=== PATIENT | female | born 1960 | race Caucasian/White ===

== ENCOUNTER 2018-09-02 17:54 | Emergency (ER) | payer OTHER ==
--- NOTE | 2018-09-02 18:18 | ERPHSYRPT ---
- History of Present Illness Time Seen by Provider: 09/02/18 18:15 Source: patient Exam Limitations: no limitations Patient Subjective Stated Complaint: slid and fell down hill and injured left ankle Triage Nursing Assessment: Pt states that she was on her property and there is a hill that gets real slick when it's wet and she slid down the heal injuring her left ankle, ankle is swollen on the lateral side, BP 150/77, rates pain 6/10 , good pulses, capillary refill normal, doesn't appear to be in any distress Physician History: 58 y/o diabetic, obese white female presents with left ankle pain and swelling after pt slipped and fell down a slick wet hill at her home. no head injury. no other complaints Occurred: just prior to arrival Reason for Fall: slipped Injuries/Pain Location: lower extremity (left ankle) Quality: aching, throbbing Severity of Pain-Max: moderate Severity of Pain-Current: moderate Modifying Factors: Improves With: movement, other (hurts to weight bear) Associated Symptoms (Fall): extremity injury, No back pain, No chest pain, No neck pain Allergies/Adverse Reactions: No Known Drug Allergies Allergy (Verified 09/02/18 18:14) Home Medications: Metformin HCl 500 mg [Glucophage 500 MG] 1,000 mg PO DAILY 03/14/12 [History] Glimepiride 2 mg [Amaryl 2 MG] 2 mg PO DAILY 09/02/18 [History] Losartan Potassium 50 mg [Cozaar 50 MG] 50 mg PO DAILY 09/02/18 [History] Oxybutynin Chloride [Oxybutynin Chloride ER] 10 mg PO DAILY 09/02/18 [History] Verapamil HCl 80 mg [Calan 80 mg] 80 mg PO DAILY 09/02/18 [History] Hx Tetanus, Diphtheria Vaccination/Date Given: (UNKNOWN) Hx Influenza Vaccination/Date Given: No Hx Pneumococcal Vaccination/Date Given: No - Review of Systems Constitutional: No Symptoms Eyes: No Symptoms Ears, Nose, & Throat: No Symptoms Respiratory: No Symptoms Cardiac: No Symptoms Abdominal/Gastrointestinal: No Symptoms Genitourinary Symptoms: No Symptoms Musculoskeletal: Fall, Injury (left ankle) Skin: No Symptoms Neurological: No Symptoms Psychological: No Symptoms Endocrine: No Symptoms Hematologic/Lymphatic: No Symptoms Immunological/Allergic: No Symptoms All Other Systems: Reviewed and Negative - Past Medical History Pertinent Past Medical History: Yes Neurological History: No Pertinent History ENT History: No Pertinent History Cardiac History: Hypertension Respiratory History: No Pertinent History Endocrine Medical History: Diabetes Type II Musculoskeletal History: No Pertinent History GI Medical History: No Pertinent History History: No Pertinent History Psycho-Social History: No Pertinent History Female Reproductive Disorders: No Pertinent History - Past Surgical History Past Surgical History: Yes Neuro Surgical History: No Pertinent History Cardiac: No Pertinent History Respiratory: No Pertinent History Gastrointestinal: No Pertinent History Genitourinary: No Pertinent History Musculoskeletal: No Pertinent History Female Surgical History: Section - Social History Smoking Status: Never smoker Exposure to second hand smoke: Yes Drug Use: none Patient Lives Alone: No - Female History Hx Now: No - Nursing Vital Signs Nursing Vital Signs: Initial Vital Signs Temperature 98.0 F 09/02/18 18:06 Pulse Rate 80 09/02/18 18:06 Blood Pressure 150/77 09/02/18 18:06 O2 Sat by Pulse Oximetry 98 09/02/18 18:06 Pain Scale Pain Intensity 4 - [place] Coma Score Best Eye Response ([place]): (4) open spontaneously Best Verbal Response ([place]): (5) oriented Best Motor Response ([place]): (6) obeys commands [place] Total: 15 - Physical Exam General Appearance: mild distress, alert, anxiety Head Injury: no evidence of injury, No Esquivel's Sign, No lacerations, No raccoon eyes Eye Exam: PERRL/EOMI, eyes nml inspection ENT Exam: airway nml, nml ext.inspection Neck Exam: supple, trachea midline, full range of motion, normal alignment Respiratory/Chest Exam: normal breath sounds, No chest tenderness, No respiratory distress Cardiovascular Exam: normal heart sounds Gastrointestinal Exam: soft, No tenderness, No guarding Rectal Exam: not done Back Exam: normal inspection, normal range of motion, No CVA tenderness, No vertebral tenderness Extremity Exam: joint swelling (left ankle; lateral) Neurologic Exam: alert, oriented x 3, cooperative, protection engineer II-XII nml as tested, normal mood/affect Skin Exam: normal color, warm, dry SpO2 Interpretation: normal SpO2: 98 O2 Delivery: Room Air Ordered Tests: Active Orders 24 hr Category Date Time Status ANKLE (3 VIEWS) Stat Exams 09/02/18 18:18 Taken Medication Summary Discontinued Medications Generic Name Dose Route Start Last Admin Trade Name Freq PRN Reason Stop Dose Admin Hydrocodone Bitart/Acetaminophen 1 tab 09/02/18 18:23 09/02/18 18:34 [place] 5/325 Mg PO 09/02/18 18:24 1 tab STAT ONE Administration Hydrocodone Bitart/Acetaminophen Confirm 09/02/18 18:34 [place] 5/325 Mg Administered 09/02/18 18:35 Dose 1 tab .ROUTE .STK-MED ONE Ibuprofen 600 mg 09/02/18 18:23 09/02/18 18:34 Motrin 600 Mg PO 09/02/18 18:24 600 mg STAT ONE Administration Ibuprofen Confirm 09/02/18 18:33 Motrin 600 Mg Administered 09/02/18 18:34 Dose 600 mg .ROUTE .STK-MED ONE - Progress Progress: improved, pain not gone completely, re-examined Progress Note: 09/02/18 19:27 xray left ankle-no acute fx. Counseled pt/family regarding: diagnosis, need for follow-up, rad results - Departure Time of Disposition: 19:28 Departure Disposition: Home Clinical Impression: Ankle sprain Condition: Stable Critical Care Time: No Referrals: ROSANA JOSEPH MD [Primary Care Provider] - Additional Instructions: add ibuprofen for pain. wear thong wrap for comfort. follow up with primary doctor for persistent symptoms Prescriptions: Hydrocodone/APAP 5-325 Tab^^^ [[place] 5-325 Tablet^^^] 1 tab PO Q8H PRN PRN #6 tablet MDD 6 PRN Reason: Pain
[2018-09-02] MEDS ORDERED: MOTRIN 600 MG PO ONE (18:23)
[2018-09-02] MEDS ORDERED: NORCO 5/325 MG PO ONE (18:23)
[2018-09-02] MEDS ORDERED: MOTRIN 600 MG ONE (18:33)
[2018-09-02] MEDS ORDERED: NORCO 5/325 MG ONE (18:34)
[2018-09-02 20:16] VITALS: BP 129/55; PULSE 72; O2SAT 96
--- NOTE | 2018-09-03 08:45 | XRAY ---
Indication: Pain, swelling, and bruising following fall. Comparison: None 3 views of the left ankle demonstrates anterior lateral soft tissue swelling and small heel spurs. No other bony, articular, or soft tissue abnormalities.
== END 2018-09-02 20:21 | disposition home or self-care (01) ==
LOC: ED 17:54
DX: S93.402A Sprain of unspecified ligament of left ankle, initial encounter (principal); M25.572 Pain in left ankle and joints of left foot; W01.0XXA Fall on same level from slipping, tripping and stumbling without subsequent striking against object, initial encounter; Y92.828 Other wilderness area as the place of occurrence of the external cause; E11.9 Type 2 diabetes mellitus without complications; Z79.4 Long term (current) use of insulin; Z79.899 Other long term (current) drug therapy
CPT/HCPCS: 73610; 99284; A9270-GY

== ENCOUNTER 2020-06-06 11:45 | Emergency (ER) | payer OTHER ==
[2012-03-14 11:43] VITALS: BP 99/58
[2020-06-06] MEDS ORDERED: Sodium Chloride 0.9% 1000 ML 1,000 ML IV STA ×2 (12:37→14:33)
[2020-06-06] MEDS ORDERED: Zofran 4 MG/2 ML VIAL IV STA (12:37)
[2020-06-06] MEDS ORDERED: Sodium Chloride 0.9% 1000 ML 1,000 ML ONE ×2 (12:47→14:44)
[2020-06-06] MEDS ORDERED: Zofran 4 MG/2 ML VIAL ONE (12:48)
[2020-06-06 12:54] LABS: Absolute Neutrophil Ct (ANC) 5.99 (1.4-6.9); BASOPHIL % 0.2 % (0.0-0.4); Basophil (Absolute #) 0.02 (0-0.4); Eosinophil % 0.1 % (0.00-5.0); Eosinophil (Absolute #) 0.01 (0-0.5); Hematocrit 45.4 % (35-47); Lymphocyte (Absolute #) 2.86 (1.0-4.6); Lymphocytes % 29.2 % (24.0-44.0); Mean Cell Volume 91.7 fl (78-100); Mean Corpuscular Hemoglobin 30.3 pg (26-32); Mean Platelet Volume 11.6 fl (7.5-11.0); Monocyte (Absolute #) 0.93 (0.0-1.3); Monocytes % 9.5 % (0.0-12.0); Platelet Count 176 K/mm3 (150-450); Red Blood Count 4.95 M/mm3 (4.1-5.4); Red Cell Distribution Width 13.4 % (11.5-14.0); White Blood Count 9.8 K/mm3 (4.0-10.5)
[2020-06-06 13:01] VITALS: O2SAT 96
[2020-06-06 13:03] LABS: ALBUMIN 4.5 g/dL (3.5-5.0); ALKALINE PHOSPHATASE 86 U/L (38-126); ANION GAP 16.7 MEQ/L (5-15); BLOOD UREA NITROGEN 28 mg/dL (7-17); CHLORIDE 97 mmol/L (98-107); Calcium 9.2 mg/dL (8.4-10.2); Carbon Dioxide 24 mmol/L (22-30); Creatinine 1 0.92 mg/dL (0.52-1.04); EST GLOMERULAR FILTRATION RATE > 60.0 ML/MIN; Glucose 274 mg/dL (74-106); NT PRO BNP 31.3 pg/mL (0-900); Potassium 3.2 mmol/L (3.5-5.1); SGOT/AST 204 U/L (14-36); SGPT/ALT 237 U/L (0-35); SODIUM 134 mmol/L (137-145); Total Protein 8.1 g/dL (6.3-8.2)
--- NOTE | 2020-06-06 13:19 | ERPHSYRPT ---
- History of Present Illness Time Seen by Provider: 06/06/20 12:00 Source: patient Exam Limitations: no limitations Patient Subjective Stated Complaint: Fall Triage Nursing Assessment: Patient brought back to ED via w/c and transfered to bed with assist of 2. Patient A+O X3. Patient's skin pink, warm and dry. Patient complains of "passing out". Patient's reports patient fell hitting her head twice and having to be assisted off the floor. Patient currently denies pain or discomfort. Patient was dx with COVID 19 on 06/04/2020 and has been very weak. Physician History: This is a diabetic 60-year-old morbidly obese white female with a history of hypertension who was tested for Covid this past Thursday with a rapid test at a residential facility and it was positive. She then had another drawn within the last day or 2 and she is waiting results of that COVID-19 test. Patient was given a prescription for Z-Jose and Medrol dose pack yesterday. This morning she had 2 syncopal episodes. Patient has not been eating or drinking well the last for 5 days. When she fell she stated she did hit her head. She is just felt weak primarily. She has not having chest pain or shortness of breath, however, she did tell the nurse that she was having both of these symptoms. She has not been coughing. She has no abdominal pain. Timing/Duration: today Severity: moderate Associated Symptoms: loss of appetite, syncope, weakness, No shortness of breath, No chest pain Allergies/Adverse Reactions: No Known Drug Allergies Allergy (Verified 06/06/20 11:46) Home Medications: Metformin HCl 500 mg [Glucophage 500 MG] 1,000 mg PO DAILY 03/14/12 [History] Glimepiride 2 mg [Amaryl 2 MG] 2 mg PO DAILY 09/02/18 [History] Losartan Potassium 50 mg [Cozaar 50 MG] 50 mg PO DAILY 09/02/18 [History] Oxybutynin Chloride [Oxybutynin Chloride ER] 10 mg PO DAILY 09/02/18 [History] Verapamil HCl 80 mg [Calan 80 mg] 80 mg PO DAILY 09/02/18 [History] Hx Tetanus, Diphtheria Vaccination/Date Given: (UNKNOWN) Hx Influenza Vaccination/Date Given: Yes Hx Pneumococcal Vaccination/Date Given: No Immunizations Up to Date: Yes Travel Risk - International Travel Have you traveled outside of the country in past 3 weeks: No - Coronavirus Screening Are you exhibiting any of the following symptoms?: Yes Symptoms: Fever, Cough: New Onset, Shortness of Breath, Vomiting/Diarrhea, Loss of Taste or Smell, Headaches/Body Aches/Fatigue Close contact with a COVID-19 positive Pt in past 14-21 Days: Yes - Review of Systems Constitutional: Weakness Eyes: No Symptoms Ears, Nose, & Throat: No Symptoms Respiratory: Cough, Dyspnea Cardiac: No Symptoms, No Chest Pain Abdominal/Gastrointestinal: No Symptoms, Appetite Changes Genitourinary Symptoms: No Symptoms Musculoskeletal: No Symptoms Skin: No Symptoms Neurological: No Symptoms Psychological: No Symptoms Endocrine: No Symptoms Hematologic/Lymphatic: No Symptoms Immunological/Allergic: No Symptoms All Other Systems: Reviewed and Negative - Past Medical History Pertinent Past Medical History: Yes Neurological History: No Pertinent History ENT History: No Pertinent History Cardiac History: Hypertension Respiratory History: No Pertinent History Endocrine Medical History: Diabetes Type II Musculoskeletal History: No Pertinent History GI Medical History: No Pertinent History History: No Pertinent History Psycho-Social History: No Pertinent History Female Reproductive Disorders: No Pertinent History - Past Surgical History Past Surgical History: Yes Neuro Surgical History: No Pertinent History Cardiac: No Pertinent History Respiratory: No Pertinent History Gastrointestinal: No Pertinent History Genitourinary: No Pertinent History Musculoskeletal: No Pertinent History Female Surgical History: Section - Social History Smoking Status: Never smoker Exposure to second hand smoke: Yes Drug Use: none Patient Lives Alone: No - Female History Hx Last Menstrual Period: menopausal Hx Now: No - Nursing Vital Signs Nursing Vital Signs: Initial Vital Signs Pulse Rate 85 06/06/20 11:46 Respiratory Rate 18 06/06/20 11:46 O2 Sat by Pulse Oximetry 94 L 06/06/20 11:46 Pain Scale Pain Intensity 0 - Physical Exam General Appearance: no apparent distress, alert, anxiety, obese Eye Exam: PERRL/EOMI, eyes nml inspection Ears, Nose, Throat Exam: normal ENT inspection, moist mucous membranes Neck Exam: normal inspection, non-tender, supple, full range of motion Respiratory Exam: normal breath sounds, lungs clear, airway intact, No chest tenderness, No respiratory distress Cardiovascular Exam: regular rate/rhythm, normal heart sounds, normal peripheral pulses Gastrointestinal/Abdomen Exam: soft, normal bowel sounds, No tenderness, No guarding Pelvic Exam: not done Rectal Exam: not done Back Exam: normal inspection, normal range of motion, No CVA tenderness, No vertebral tenderness Extremity Exam: normal inspection, normal range of motion, pelvis stable Neurologic Exam: alert, oriented x 3, cooperative, travel cota II-XII nml as tested Skin Exam: normal color, warm, dry Lymphatic Exam: No adenopathy SpO2 Interpretation: normal SpO2: 96 O2 Delivery: Room Air - Course Nursing assessment & vital signs reviewed: Yes EKG Interpreted by Me: RATE (87), Sinus Rhythm, NORMAL AXIS, NORMAL INTERVALS, NORMAL QRS, NORMAL ST-T, Other (No acute ischemic changes. There is no comparison EKG available.) Ordered Tests: Active Orders 24 hr Category Date Time Status Assembler Piano STAT Care 06/06/20 12:38 Active IV Insertion STAT Care 06/06/20 12:37 Active Pulse Oximetry (ED) STAT Care 06/06/20 12:37 Active HEAD WITHOUT CONTRAST [CT] Stat Exams 06/06/20 12:39 Completed CBC W DIFF Stat Lab 06/06/20 12:37 Completed CMP Stat Lab 06/06/20 12:37 Completed CULTURE,URINE Stat Lab 06/06/20 13:00 Received INFLUENZA A+B HOLLIE Stat Lab 06/06/20 13:00 Completed Lactic Acid Stat Lab 06/06/20 12:37 Completed [place] Screen Stat Lab 06/06/20 Completed NT PRO BNP Stat Lab 06/06/20 12:37 Completed TROPONIN Q3H Lab 06/06/20 12:45 Completed TROPONIN Q3H Lab 06/06/20 15:45 Ordered TROPONIN Q3H Lab 06/06/20 18:45 Ordered TROPONIN Q3H Lab 06/06/20 21:45 Ordered TROPONIN Q3H Lab 06/07/20 00:45 Ordered UA W/RFX UR CULTURE Stat Lab 06/06/20 13:00 Completed Medication Summary Generic Name Dose Route Start Last Admin Trade Name Freq PRN Reason Stop Dose Admin Sodium Chloride 1,000 mls @ 999 mls/hr 06/06/20 14:33 Sodium Chloride 0.9% 1000 Ml IV 06/06/20 15:33 .Q1H1M STA Discontinued Medications Generic Name Dose Route Start Last Admin Trade Name Freq PRN Reason Stop Dose Admin Sodium Chloride 1,000 mls @ 999 mls/hr 06/06/20 12:37 06/06/20 13:59 Sodium Chloride 0.9% 1000 Ml IV 06/06/20 13:37 Infused .Q1H1M STA Infusion Sodium Chloride Confirm 06/06/20 12:47 Sodium Chloride 0.9% 1000 Ml Administered 06/06/20 12:48 Dose 1,000 mls @ ud .ROUTE .STK-MED ONE Ondansetron HCl 4 mg 06/06/20 12:37 06/06/20 12:51 Zofran 4 Mg/2 Ml Vial IV 06/06/20 12:38 4 mg STAT STA Administration Ondansetron HCl Confirm 06/06/20 12:48 Zofran 4 Mg/2 Ml Vial Administered 06/06/20 12:49 Dose 4 mg .ROUTE .STK-MED ONE Potassium Chloride 10 meq 06/06/20 13:21 06/06/20 13:26 Klor Con 10 Meq PO 06/06/20 13:22 10 meq STAT ONE Administration Potassium Chloride Confirm 06/06/20 13:25 Klor Con 10 Meq Administered 06/06/20 13:26 Dose 10 meq PO .STK-MED ONE Lab/Rad Data: Laboratory Result Diagrams 06/06/20 12:37 06/06/20 12:37 Laboratory Results 06/06/20 06/06/20 06/06/20 Range/Units Unknown 13:00 13:00 WBC (4.0-10.5) K/mm3 RBC (4.1-5.4) M/mm3 Hgb (12.0-16.0) gm/dl Hct (35-47) % MCV (78-100) fl MCH (26-32) pg MCHC (32-36) g/dl RDW (11.5-14.0) % Plt Count (150-450) K/mm3 MPV (7.5-11.0) fl Gran % (36.0-66.0) % Eos # (Auto) (0-0.5) Absolute Lymphs (auto) (1.0-4.6) Absolute Monos (auto) (0.0-1.3) Lymphocytes % (24.0-44.0) % Monocytes % (0.0-12.0) % Eosinophils % (0.00-5.0) % Basophils % (0.0-0.4) % Absolute Granulocytes (1.4-6.9) Basophils # (0-0.4) Sodium (137-145) mmol/L Potassium (3.5-5.1) mmol/L Chloride (98-107) mmol/L Carbon Dioxide (22-30) mmol/L Anion Gap (5-15) MEQ/L BUN (7-17) mg/dL Creatinine (0.52-1.04) mg/dL Estimated GFR ML/MIN Glucose (74-106) mg/dL Lactic Acid (0.4-2.0) Calcium (8.4-10.2) mg/dL Total Bilirubin (0.2-1.3) mg/dL AST (14-36) U/L ALT (0-35) U/L Alkaline Phosphatase (38-126) U/L Troponin I (0.000-0.034) ng/mL NT-Pro-B Natriuret Pep (0-900) pg/mL Serum Total Protein (6.3-8.2) g/dL Albumin (3.5-5.0) g/dL Urine Color CHRISTIANO (YELLOW) Urine Appearance CLOUDY (CLEAR) Urine pH 5.0 (5-6) Ur Specific [place] 1.024 (1.005-1.025) Urine Protein 100 (Negative) Urine Ketones NEGATIVE (NEGATIVE) Urine Blood NEGATIVE (0-5) Lazarus/ul Urine Nitrite NEGATIVE (NEGATIVE) Urine Bilirubin NEGATIVE (NEGATIVE) Urine Urobilinogen 2 (0-1) mg/dL Ur Leukocyte Esterase NEGATIVE (NEGATIVE) Urine WBC (Auto) 3-5 (0-5) /HPF Urine RBC (Auto) 0-2 (0-2) /HPF U Hyaline Cast (Auto) 6-10 (0-2) /LPF U Epithel Cells (Auto) RARE (FEW) /HPF Urine Bacteria (Auto) RARE (NEGATIVE) /HPF Urine Mucus (Auto) MODERATE (NEGATIVE) /HPF Urine Culture Reflexed YES (NO) Urine Glucose NEGATIVE (NEGATIVE) mg/dL Monoscreen NEGATIVE (Negative) Influenza Type A Ag NEGATIVE (NEGATIVE) Influenza Type B Ag NEGATIVE (NEGATIVE) Group A Strep Antibody (NEGATIVE) 12/09/20 12/09/20 12/09/20 Range/Units 12:45 12:38 12:37 WBC (4.0-10.5) K/mm3 RBC (4.1-5.4) M/mm3 Hgb (12.0-16.0) gm/dl Hct (35-47) % MCV (78-100) fl MCH (26-32) pg MCHC (32-36) g/dl RDW (11.5-14.0) % Plt Count (150-450) K/mm3 MPV (7.5-11.0) fl Gran % (36.0-66.0) % Eos # (Auto) (0-0.5) Absolute Lymphs (auto) (1.0-4.6) Absolute Monos (auto) (0.0-1.3) Lymphocytes % (24.0-44.0) % Monocytes % (0.0-12.0) % Eosinophils % (0.00-5.0) % Basophils % (0.0-0.4) % Absolute Granulocytes (1.4-6.9) Basophils # (0-0.4) Sodium 134 L (137-145) mmol/L Potassium 3.2 L (3.5-5.1) mmol/L Chloride 97 L (98-107) mmol/L Carbon Dioxide 24 (22-30) mmol/L Anion Gap 16.7 H (5-15) MEQ/L BUN 28 H (7-17) mg/dL Creatinine 0.92 (0.52-1.04) mg/dL Estimated GFR > 60.0 ML/MIN Glucose 274 H (74-106) mg/dL Lactic Acid (0.4-2.0) Calcium 9.2 (8.4-10.2) mg/dL Total Bilirubin 0.70 (0.2-1.3) mg/dL AST 204 H (14-36) U/L ALT 237 H (0-35) U/L Alkaline Phosphatase 86 (38-126) U/L Troponin I < 0.012 (0.000-0.034) ng/mL NT-Pro-B Natriuret Pep 31.3 (0-900) pg/mL Serum Total Protein 8.1 (6.3-8.2) g/dL Albumin 4.5 (3.5-5.0) g/dL Urine Color (YELLOW) Urine Appearance (CLEAR) Urine pH (5-6) Ur Specific [place] (1.005-1.025) Urine Protein (Negative) Urine Ketones (NEGATIVE) Urine Blood (0-5) Lazarus/ul Urine Nitrite (NEGATIVE) Urine Bilirubin (NEGATIVE) Urine Urobilinogen (0-1) mg/dL Ur Leukocyte Esterase (NEGATIVE) Urine WBC (Auto) (0-5) /HPF Urine RBC (Auto) (0-2) /HPF U Hyaline Cast (Auto) (0-2) /LPF U Epithel Cells (Auto) (FEW) /HPF Urine Bacteria (Auto) (NEGATIVE) /HPF Urine Mucus (Auto) (NEGATIVE) /HPF Urine Culture Reflexed (NO) Urine Glucose (NEGATIVE) mg/dL Monoscreen (Negative) Influenza Type A Ag (NEGATIVE) Influenza Type B Ag (NEGATIVE) Group A Strep Antibody NOT DETECTED (NEGATIVE) 06/06/20 06/06/20 Range/Units 12:37 12:37 WBC 9.8 (4.0-10.5) K/mm3 RBC 4.95 (4.1-5.4) M/mm3 Hgb 15.0 (12.0-16.0) gm/dl Hct 45.4 (35-47) % MCV 91.7 (78-100) fl MCH 30.3 (26-32) pg MCHC 33.0 (32-36) g/dl RDW 13.4 (11.5-14.0) % Plt Count 176 (150-450) K/mm3 MPV 11.6 H (7.5-11.0) fl Gran % 61.0 (36.0-66.0) % Eos # (Auto) 0.01 (0-0.5) Absolute Lymphs (auto) 2.86 (1.0-4.6) Absolute Monos (auto) 0.93 (0.0-1.3) Lymphocytes % 29.2 (24.0-44.0) % Monocytes % 9.5 (0.0-12.0) % Eosinophils % 0.1 (0.00-5.0) % Basophils % 0.2 (0.0-0.4) % Absolute Granulocytes 5.99 (1.4-6.9) Basophils # 0.02 (0-0.4) Sodium (137-145) mmol/L Potassium (3.5-5.1) mmol/L Chloride (98-107) mmol/L Carbon Dioxide (22-30) mmol/L Anion Gap (5-15) MEQ/L BUN (7-17) mg/dL Creatinine (0.52-1.04) mg/dL Estimated GFR ML/MIN Glucose (74-106) mg/dL Lactic Acid 1.9 (0.4-2.0) Calcium (8.4-10.2) mg/dL Total Bilirubin (0.2-1.3) mg/dL AST (14-36) U/L ALT (0-35) U/L Alkaline Phosphatase (38-126) U/L Troponin I (0.000-0.034) ng/mL NT-Pro-B Natriuret Pep (0-900) pg/mL Serum Total Protein (6.3-8.2) g/dL Albumin (3.5-5.0) g/dL Urine Color (YELLOW) Urine Appearance (CLEAR) Urine pH (5-6) Ur Specific [place] (1.005-1.025) Urine Protein (Negative) Urine Ketones (NEGATIVE) Urine Blood (0-5) Lazarus/ul Urine Nitrite (NEGATIVE) Urine Bilirubin (NEGATIVE) Urine Urobilinogen (0-1) mg/dL Ur Leukocyte Esterase (NEGATIVE) Urine WBC (Auto) (0-5) /HPF Urine RBC (Auto) (0-2) /HPF U Hyaline Cast (Auto) (0-2) /LPF U Epithel Cells (Auto) (FEW) /HPF Urine Bacteria (Auto) (NEGATIVE) /HPF Urine Mucus (Auto) (NEGATIVE) /HPF Urine Culture Reflexed (NO) Urine Glucose (NEGATIVE) mg/dL Monoscreen (Negative) Influenza Type A Ag (NEGATIVE) Influenza Type B Ag (NEGATIVE) Group A Strep Antibody (NEGATIVE) - Progress Progress: improved, re-examined Progress Note: 06/06/20 14:43 Patient states that she is feeling much better after 1 L of fluid. CAT scan of the head without contrast reveals no acute intracranial abnormality Counseled pt/family regarding: lab results, diagnosis, need for follow-up, rad results - Departure Departure Disposition: Home Clinical Impression: COVID-19 virus infection, Syncopal episodes Condition: Stable Critical Care Time: No Referrals: OPAL,ROSANA, MD [Primary Care Provider] - Additional Instructions: Drink plenty of fluids. Take your medication as prescribed. Prescriptions: Ondansetron ODT 4 MG [Zofran Odt 4 mg] 4 mg PO Q6H PRN PRN #10 tab.rapdis PRN Reason: Vomiting
[2020-06-06] MEDS ORDERED: Klor Con 10 MEQ PO ONE ×2 (13:21→13:25)
[2020-06-06 13:44] LABS: Appearance CLOUDY (CLEAR); Bacteria RARE /HPF (NEGATIVE); Bilirubin NEGATIVE (NEGATIVE); Blood NEGATIVE Ery/ul (0-5); Epithelial Cells RARE /HPF (FEW); Glucose NEGATIVE (NEGATIVE); Ketones NEGATIVE (NEGATIVE); Leukocyte Esterase NEGATIVE (NEGATIVE); Mucus MODERATE /HPF (NEGATIVE); Nitrite NEGATIVE (NEGATIVE); Protein,Urine Dip 100 (Negative); RBC 0-2 /HPF (0-2); Specific Gravity 1.024 (1.005-1.025); Urobilinogen 2 mg/dL (0-1)
--- NOTE | 2020-06-06 13:51 | XRAY ---
Indication: Syncope. Covid 19 exposure. Multiple contiguous axial images obtained through the head without contrast. Comparison: None Normal appearing brain parenchyma, ventricles, and bony calvarium. Visualized paranasal sinuses and mastoid air cells are clear. Impression: Normal CT head without contrast exam.
[2020-06-06 14:14] LABS: INFLUENZA A NEGATIVE (NEGATIVE); INFLUENZA B NEGATIVE (NEGATIVE)
[2020-06-06 15:20] VITALS: BP 125/64; PULSE 85
== END 2020-06-06 16:00 | disposition home or self-care (01) ==
LOC: ED 11:45
DX: U07.1 COVID-19 (principal); R55 Syncope and collapse; I10 Essential (primary) hypertension; Z79.899 Other long term (current) drug therapy; E11.9 Type 2 diabetes mellitus without complications
CPT/HCPCS: 36000; 36415; 70450; 80053; 81001; 83605; 83880; 84484; 85025; 86308; 87086; 87400; 87651; 93041; 94760; 96360; 96361; 96374; 99284; J2405; A9270-GY

== ENCOUNTER 2020-06-12 05:48 | Inpatient (IN) | payer OTHER ==
[2020-06-12] MEDS ORDERED: DECADRON 10MG INJ. IV ONE (06:39)
--- NOTE | 2020-06-12 06:43 | ERPHSYRPT ---
- History of Present Illness Source: patient Exam Limitations: no limitations Patient Subjective Stated Complaint: pt state "I haven't felt good for a week. I fell going to the bathroom this morning. I feel clammy and my blood pressure is low." Triage Nursing Assessment: pt came into the er via ambulance; pt is axo x3; c/o N/V/D for past 8 days; pt is covid positive; pt states fall this morning on way to the bathroom; pt states that she vomited 3 times in the last 24 hours; pt states that she has had 4 diarrhea episodes in the past 24 hours; pt states that medrol dose pack and stopped it due to high blood sugar; EMT states blood sugar of 428; pt vomited brown thin bile with undigested food; bowel sounds are hypoactive in all quads; abd is obese, soft, non tender with palpation; EMT gave 4 of zofran in route to hospital; mucus membranes pink and dry; pupils 2 mm and PERRL; clear lung sounds in all lobes; hypoxia; O2 84% room air; pt on 5L nasal canula 97%; pt c/o dizziness and weakness; pedal and radial pulses strong; hypothermic oral tempature of 96.1 Timing/Duration: day(s) (8 days ago) Severity: moderate Modifying Factors: Improves With: nothing Associated Symptoms: nausea, vomiting, shortness of breath, diaphoresis, loss of appetite Hx Tetanus, Diphtheria Vaccination/Date Given: Yes Hx Influenza Vaccination/Date Given: Yes Hx Pneumococcal Vaccination/Date Given: No <IRIS WALDRON - Last Filed: 06/12/20 07:04> <MERRY ZAVALA - Last Filed: 06/12/20 11:59> - History of Present Illness Time Seen by Provider: 06/12/20 06:20 Physician History: Patient is a 60-year-old female presents to our ED via EMS for evaluation of generalized weakness and feeling unwell. Patient states she was diagnosed with Covid on 04 June. Since then she has been experiencing nausea vomiting and diarrhea. Over the past 24 hours patient had experienced 3 bouts of emesis and 4 episodes of diarrhea. Patient sees Dr. Louise who started her on a Medrol Dosepak to treat her symptoms however patient discontinued the Medrol Dosepak due to hyperglycemia. Patient states she feels extremely weak. No injuries from the fall. Symptoms are progressive. Symptoms are moderate in intensity. No specific worsening or improving factors. Patient voices no other complaints concerns at this time. Patient currently on 6 L O2 nasal cannula. She normally does not require oxygen at home. (IRIS WALDRON) Allergies/Adverse Reactions: No Known Drug Allergies Allergy (Verified 06/12/20 05:56) Home Medications: Metformin HCl 500 mg [Glucophage 500 MG] 1,000 mg PO DAILY 03/14/12 [History] Glimepiride 2 mg [Amaryl 2 MG] 2 mg PO DAILY 09/02/18 [History] Losartan Potassium 50 mg [Cozaar 50 MG] 50 mg PO DAILY 09/02/18 [History] Oxybutynin Chloride [Oxybutynin Chloride ER] 10 mg PO DAILY 09/02/18 [History] Verapamil HCl 80 mg [Calan 80 mg] 80 mg PO DAILY 09/02/18 [History] Travel Risk - International Travel Have you traveled outside of the country in past 3 weeks: No - Coronavirus Screening Symptoms: Fever, Cough: New Onset, Shortness of Breath, Vomiting/Diarrhea, Loss of Taste or Smell, Headaches/Body Aches/Fatigue Close contact with a COVID-19 positive Pt in past 14-21 Days: Yes <IRIS WALDRON - Last Filed: 06/12/20 07:04> - Review of Systems All Other Systems: Unable due to condition <IRIS WALDRON - Last Filed: 06/12/20 07:04> - Past Medical History Pertinent Past Medical History: Yes Neurological History: No Pertinent History ENT History: No Pertinent History Cardiac History: Hypertension Respiratory History: No Pertinent History Endocrine Medical History: Diabetes Type II Musculoskeletal History: No Pertinent History GI Medical History: No Pertinent History History: No Pertinent History Psycho-Social History: No Pertinent History Female Reproductive Disorders: No Pertinent History - Past Surgical History Past Surgical History: Yes Neuro Surgical History: No Pertinent History Cardiac: No Pertinent History Respiratory: No Pertinent History Gastrointestinal: No Pertinent History Genitourinary: No Pertinent History Musculoskeletal: Orthopedic Surgery Female Surgical History: Section Other Surgical History: 3- , back surgery - Social History Smoking Status: Never smoker Exposure to second hand smoke: Yes Drug Use: none Patient Lives Alone: No <IRIS WALDRON Filed: 06/12/20 07:04> - Physical Exam General Appearance: mild distress, alert Eye Exam: PERRL/EOMI, eyes nml inspection Ears, Nose, Throat Exam: normal ENT inspection, dry mucous membranes Neck Exam: normal inspection, non-tender, supple, full range of motion Respiratory Exam: lungs clear, diminished breath sounds, No respiratory distress, No accessory muscle use Cardiovascular Exam: regular rate/rhythm, normal heart sounds, normal peripheral pulses Gastrointestinal/Abdomen Exam: soft, normal bowel sounds, No tenderness, No mass Back Exam: normal inspection, normal range of motion, No CVA tenderness, No vertebral tenderness Extremity Exam: normal inspection, normal range of motion, pelvis stable Neurologic Exam: alert, oriented x 3, cooperative, normal mood/affect, sensation nml, No motor deficits Skin Exam: normal color, warm, dry, No rash Lymphatic Exam: No adenopathy SpO2 Interpretation: normal SpO2: 93 O2 Delivery: Nasal Cannula <IRIS WALDRON Filed: 06/12/20 07:04> - Nursing Vital Signs Nursing Vital Signs: Initial Vital Signs Temperature 96.1 F 06/12/20 06:00 Pulse Rate 85 06/12/20 06:00 Respiratory Rate 16 06/12/20 06:00 Blood Pressure 102/52 06/12/20 06:00 O2 Sat by Pulse Oximetry 93 L 06/12/20 06:00 Pain Scale Pain Intensity 0 - Course Nursing assessment & vital signs reviewed: Yes EKG Interpreted by Me: RATE (84), Sinus Rhythm, NORMAL AXIS, NORMAL INTERVALS <IRIS WALDRON Filed: 06/12/20 07:04> Ordered Tests: Active Orders 24 hr Category Date Time Status Radio Installer STAT Care 06/12/20 06:34 Active EKG-ER Only STAT Care 06/12/20 06:32 Active IV Insertion STAT Care 06/12/20 06:32 Active Pulse Oximetry (ED) STAT Care 06/12/20 06:32 Active CHEST 1 VIEW (PORTABLE) Stat Exams 06/12/20 06:34 Completed ARTERIAL BLOOD GASES Stat Lab 06/12/20 06:55 Completed BLOOD CULTURE Stat Lab 06/12/20 06:50 Received CBC W DIFF Stat Lab 06/12/20 06:40 Completed CMP Stat Lab 06/12/20 06:40 Completed CULTURE,URINE Stat Lab 06/12/20 07:45 Received D-DIMER QUANTITATIVE Stat Lab 06/12/20 06:40 Completed INFLUENZA A+B HOLLIE Stat Lab 06/12/20 07:00 Completed Lactic Acid Stat Lab 06/12/20 06:55 Completed Lactic Acid Stat Lab 06/12/20 09:01 Completed MAGNESIUM Stat Lab 06/12/20 06:40 Completed Manual Differential NC Stat Lab 06/12/20 06:40 Completed TROPONIN Q3H Lab 06/12/20 06:40 Completed TROPONIN Q3H Lab 06/12/20 10:00 Completed TROPONIN Q3H Lab 06/12/20 12:45 Ordered TROPONIN Q3H Lab 06/12/20 15:45 Ordered TROPONIN Q3H Lab 06/12/20 18:45 Ordered Medication Summary Generic Name Dose Route Start Last Admin Trade Name Freq PRN Reason Stop Dose Admin Dexamethasone Sodium Phosphate 8 mg 06/12/20 06:39 06/12/20 06:45 Decadron 10mg Inj. IV 06/12/20 06:40 8 mg STAT ONE Administration Discontinued Medications Generic Name Dose Route Start Last Admin Trade Name Freq PRN Reason Stop Dose Admin Potassium Chloride 20 meq in 100 mls @ 50 mls/hr 06/12/20 07:18 06/12/20 07:23 Potassium Chloride 20 Meq In Water 100ml IV 06/12/20 09:17 50 mls/hr STAT ONE Administration Sodium Chloride 1,000 mls @ 999 mls/hr 06/12/20 07:21 06/12/20 09:24 Sodium Chloride 0.9% 1000 Ml IV 06/12/20 08:21 Infused .Q1H1M STA Infusion Sodium Chloride Confirm 06/12/20 07:21 Sodium Chloride 0.9% 1000 Ml Administered 06/12/20 07:22 Dose 1,000 mls @ ud .ROUTE .STK-MED ONE Potassium Chloride Confirm 06/12/20 07:21 Potassium Chloride 20 Meq In Water 100ml Administered 06/12/20 07:22 Dose 100 mls @ ud IV .STK-MED ONE Potassium Chloride Confirm 06/12/20 09:26 Potassium Chloride 20 Meq In Water 100ml Administered 06/12/20 09:27 Dose 100 mls @ ud IV .STK-MED ONE Potassium Chloride 20 meq in 100 mls @ 50 mls/hr 06/12/20 09:30 06/12/20 09:31 Potassium Chloride 20 Meq In Water 100ml IV 06/12/20 11:29 50 mls/hr STAT ONE Administration Lab/Rad Data: Laboratory Result Diagrams 06/12/20 06:40 06/12/20 06:40 Laboratory Results 06/12/20 06/12/20 06/12/20 Range/Units 10:00 09:01 07:45 WBC (4.0-10.5) K/mm3 RBC (4.1-5.4) M/mm3 Hgb (12.0-16.0) gm/dl Hct (35-47) % MCV (78-100) fl MCH (26-32) pg MCHC (32-36) g/dl RDW (11.5-14.0) % Plt Count (150-450) K/mm3 MPV (7.5-11.0) fl Segmented Neutrophils (36.0-66.0) % Band Neutrophils (0.0-2.0) % Lymphocytes (Manual) (24-44) % Monocytes (Manual) (0.0-12.0) % Platelet Estimate (NORMAL) RBC Morphology D-Dimer (215-500) ng/mL Puncture Site pCO2 (35-45) mmHg pO2 (75-100) mmHg Base Excess (-2.0-2.0) O2 Saturation (94-100) g/dF ABG pH (7.35-7.45) ABG HCO3 (22-28) ABG O2 Sat (Measured) (95-100) % Jaspreet Test A-a Gradient a/A Ratio Hemoglobin Carboxyhemoglobin (0.0-6.9) % THgb Methemoglobin (1.4-1.5) % Temperature C POC O2 Flow Rate % Sodium (137-145) mmol/L Potassium (3.5-5.1) mmol/L Chloride (98-107) mmol/L Carbon Dioxide (22-30) mmol/L Anion Gap (5-15) MEQ/L BUN (7-17) mg/dL Creatinine (0.52-1.04) mg/dL Estimated GFR ML/MIN Glucose (74-106) mg/dL Lactic Acid 2.5 H (0.4-2.0) Calcium (8.4-10.2) mg/dL Magnesium (1.6-2.3) mg/dL Total Bilirubin (0.2-1.3) mg/dL AST (14-36) U/L ALT (0-35) U/L Alkaline Phosphatase (38-126) U/L Troponin I < 0.012 (0.000-0.034) ng/mL Serum Total Protein (6.3-8.2) g/dL Albumin (3.5-5.0) g/dL Urinalys Dipstick Clnc MAIN LAB Urine Color YELLOW (YELLOW) Urine Appearance CLOUDY (CLEAR) Urine pH 5.0 (5-6) Ur Specific [place] >=1.030 (1.005-1.025) POC Urine Protein Conf NEGATIVE (Negative) Urine Ketones NEGATIVE (NEGATIVE) Urine Nitrite NEGATIVE (NEGATIVE) Urine Bilirubin SMALL (NEGATIVE) Urine Urobilinogen 1 (0-1) mg/dL Urine Leukocytes 1+ (NEGATIVE) Urine WBC (Auto) 51-100 (0-5) /HPF Urine RBC (Auto) 6-10 (0-2) /HPF U Hyaline Cast (Auto) 3-5 (0-2) /LPF U Epithel Cells (Auto) RARE (FEW) /HPF Urine Bacteria (Auto) PACKED (NEGATIVE) /HPF Urine RBC MODERATE NON-HEM (0-5) Lazarus/ul Unidentified Crystals 5-10 (NEGATIVE) /HPF Other Casts (Auto) >50 (NEGATIVE) /LPF Urine Mucus (Auto) SLIGHT (NEGATIVE) /HPF Ur Culture Indicated? YES Urine Glucose NEGATIVE (NEGATIVE) mg/dL Influenza Type A Ag (NEGATIVE) Influenza Type B Ag (NEGATIVE) 06/12/20 06/12/20 06/12/20 Range/Units 07:00 06:55 06:40 WBC (4.0-10.5) K/mm3 RBC (4.1-5.4) M/mm3 Hgb (12.0-16.0) gm/dl Hct (35-47) % MCV (78-100) fl MCH (26-32) pg MCHC (32-36) g/dl RDW (11.5-14.0) % Plt Count (150-450) K/mm3 MPV (7.5-11.0) fl Segmented Neutrophils (36.0-66.0) % Band Neutrophils (0.0-2.0) % Lymphocytes (Manual) (24-44) % Monocytes (Manual) (0.0-12.0) % Platelet Estimate (NORMAL) RBC Morphology D-Dimer (215-500) ng/mL Puncture Site LEFT RADIAL pCO2 29 L (35-45) mmHg pO2 77 (75-100) mmHg Base Excess -3.2 L (-2.0-2.0) O2 Saturation 93.4 L (94-100) g/dF ABG pH 7.44 (7.35-7.45) ABG HCO3 19.7 L (22-28) ABG O2 Sat (Measured) 95.6 (95-100) % Jaspreet Test YES A-a Gradient 172 a/A Ratio 0.31 Hemoglobin 14.5 Carboxyhemoglobin 1.6 (0.0-6.9) % THgb Methemoglobin 0.8 L (1.4-1.5) % Temperature 37.0 C POC O2 Flow Rate 40 % Sodium (137-145) mmol/L Potassium 2.3 L* (3.5-5.1) mmol/L Chloride (98-107) mmol/L Carbon Dioxide (22-30) mmol/L Anion Gap (5-15) MEQ/L BUN (7-17) mg/dL Creatinine (0.52-1.04) mg/dL Estimated GFR ML/MIN Glucose (74-106) mg/dL Lactic Acid 2.6 H (0.4-2.0) Calcium (8.4-10.2) mg/dL Magnesium (1.6-2.3) mg/dL Total Bilirubin (0.2-1.3) mg/dL AST (14-36) U/L ALT (0-35) U/L Alkaline Phosphatase (38-126) U/L Troponin I < 0.012 (0.000-0.034) ng/mL Serum Total Protein (6.3-8.2) g/dL Albumin (3.5-5.0) g/dL Urinalys Dipstick Clnc Urine Color (YELLOW) Urine Appearance (CLEAR) Urine pH (5-6) Ur Specific [place] (1.005-1.025) POC Urine Protein Conf (Negative) Urine Ketones (NEGATIVE) Urine Nitrite (NEGATIVE) Urine Bilirubin (NEGATIVE) Urine Urobilinogen (0-1) mg/dL Urine Leukocytes (NEGATIVE) Urine WBC (Auto) (0-5) /HPF Urine RBC (Auto) (0-2) /HPF U Hyaline Cast (Auto) (0-2) /LPF U Epithel Cells (Auto) (FEW) /HPF Urine Bacteria (Auto) (NEGATIVE) /HPF Urine RBC (0-5) Lazarus/ul Unidentified Crystals (NEGATIVE) /HPF Other Casts (Auto) (NEGATIVE) /LPF Urine Mucus (Auto) (NEGATIVE) /HPF Ur Culture Indicated? Urine Glucose (NEGATIVE) mg/dL Influenza Type A Ag NEGATIVE (NEGATIVE) Influenza Type B Ag NEGATIVE (NEGATIVE) 06/12/20 06/12/20 06/12/20 Range/Units 06:40 06:40 06:40 WBC 9.0 (4.0-10.5) K/mm3 RBC 4.71 (4.1-5.4) M/mm3 Hgb 14.3 (12.0-16.0) gm/dl Hct 41.3 (35-47) % MCV 87.7 (78-100) fl MCH 30.4 (26-32) pg MCHC 34.6 (32-36) g/dl RDW 13.0 (11.5-14.0) % Plt Count 208 (150-450) K/mm3 MPV 12.1 H (7.5-11.0) fl Segmented Neutrophils 86 H (36.0-66.0) % Band Neutrophils 3 H (0.0-2.0) % Lymphocytes (Manual) 7 L (24-44) % Monocytes (Manual) 4 (0.0-12.0) % Platelet Estimate NORMAL (NORMAL) RBC Morphology NORMAL D-Dimer 372 (215-500) ng/mL Puncture Site pCO2 (35-45) mmHg pO2 (75-100) mmHg Base Excess (-2.0-2.0) O2 Saturation (94-100) g/dF ABG pH (7.35-7.45) ABG HCO3 (22-28) ABG O2 Sat (Measured) (95-100) % Jaspreet Test A-a Gradient a/A Ratio Hemoglobin Carboxyhemoglobin (0.0-6.9) % THgb Methemoglobin (1.4-1.5) % Temperature C POC O2 Flow Rate % Sodium 121 L (137-145) mmol/L Potassium 2.7 L* (3.5-5.1) mmol/L Chloride 80 L (98-107) mmol/L Carbon Dioxide 22 (22-30) mmol/L Anion Gap 21.8 H (5-15) MEQ/L BUN 91 H (7-17) mg/dL Creatinine 2.49 H (0.52-1.04) mg/dL Estimated GFR 20.8 ML/MIN Glucose 417 H (74-106) mg/dL Lactic Acid (0.4-2.0) Calcium 8.1 L (8.4-10.2) mg/dL Magnesium 2.3 (1.6-2.3) mg/dL Total Bilirubin 1.00 (0.2-1.3) mg/dL AST 75 H (14-36) U/L ALT 85 H (0-35) U/L Alkaline Phosphatase 85 (38-126) U/L Troponin I (0.000-0.034) ng/mL Serum Total Protein 7.0 (6.3-8.2) g/dL Albumin 3.9 (3.5-5.0) g/dL Urinalys Dipstick Clnc Urine Color (YELLOW) Urine Appearance (CLEAR) Urine pH (5-6) Ur Specific [place] (1.005-1.025) POC Urine Protein Conf (Negative) Urine Ketones (NEGATIVE) Urine Nitrite (NEGATIVE) Urine Bilirubin (NEGATIVE) Urine Urobilinogen (0-1) mg/dL Urine Leukocytes (NEGATIVE) Urine WBC (Auto) (0-5) /HPF Urine RBC (Auto) (0-2) /HPF U Hyaline Cast (Auto) (0-2) /LPF U Epithel Cells (Auto) (FEW) /HPF Urine Bacteria (Auto) (NEGATIVE) /HPF Urine RBC (0-5) Lazarus/ul Unidentified Crystals (NEGATIVE) /HPF Other Casts (Auto) (NEGATIVE) /LPF Urine Mucus (Auto) (NEGATIVE) /HPF Ur Culture Indicated? Urine Glucose (NEGATIVE) mg/dL Influenza Type A Ag (NEGATIVE) Influenza Type B Ag (NEGATIVE) - Progress Progress: improved <IRIS WALDRON - Last Filed: 06/12/20 07:04> - Progress Progress: re-examined Discussed with : Other (Beth Michaud ) Counseled pt/family regarding: lab results, diagnosis, rad results <MERRY ZAVALA - Last Filed: 06/12/20 11:59> - Progress Progress Note: Patient endorsed to Dr. Zavala at 7 AM. Labs and imaging studies pending. 06/12/20 07:07 (IRIS WALDRON) 06/12/20 09:35 Medical decision making: This patient is dehydrated. She is hypokalemic. She came into the hospital hypoxic as well. Patient is COVID-19 infection. She is not improving as an outpatient. I spoke with Dr. Kessler regarding admitting this patient to the Covid unit. He accepts her for admission. We will rehydrate her, infuse K riders, provide supplemental oxygen, have respiratory therapy monitor her. Dr. Michaud wants to hold off on the intravenous antibiotics. He feels that the urine findings will improve with rehydration. He also wants me to write orders to start remdesivir. 06/12/20 09:37 Chest x-ray shows bilateral lower lung infiltrates (MERRY ZAVALA) - Departure Critical Care Time: No <IRIS WALDRON - Last Filed: 06/12/20 07:04> - Departure Departure Disposition: In-patient Admission Critical Care Time: Yes Critical Care Time(excluding separately billable procedures): Critical 30-74 mi ns <MERRY ZAVALA - Last Filed: 06/12/20 11:59> - Departure Clinical Impression: COVID-19, Hypoxia, Nausea vomiting and diarrhea, Generalized weakness, Fall Condition: Serious Referrals: ROSANA JOSEPH MD [Primary Care Provider] -
[2020-06-12 06:59] LABS: A-aADO2 172; ABG HEMOGLOBIN 14.5; ARTERIAL BLD GAS O2 SATURATION 95.6 % (95-100); ARTERIAL BLOOD GAS BASE EXCESS -3.2 (-2.0-2.0); ARTERIAL BLOOD GAS FIO2 40 %; ARTERIAL BLOOD GAS PCO2 29 mmHg (35-45); ARTERIAL BLOOD GAS PO2 77 mmHg (75-100); ARTERIAL BLOOD GAS pH 7.44 (7.35-7.45); CARBOXYHEMOGLOBIN 1.6 % THgb (0.0-6.9); HCO3- 19.7 (22-28); HGB O2 SAT 93.4 g/dF (94-100); Lactic Acid 2.6 (0.4-2.0); Methhemoglobin 0.8 % (1.4-1.5); paO2 pAO1 0.31
[2020-06-12 07:00] LABS: ABG POTASSIUM 2.3 (3.5-5.1); ABG SITE LEFT RADIAL; ALLEN TEST OK? YES
[2020-06-12] MEDS ORDERED: POTASSIUM CHLORIDE 20 mEq IN WATER 100ML 20 MEQ/100 ML BAG IV ONE ×2 (07:18→09:30)
[2020-06-12 07:20] LABS: Hematocrit 41.3 % (35-47); Hemoglobin 14.3 gm/dl (12.0-16.0); Mean Cell Volume 87.7 fl (78-100); Mean Corpuscular Hemoglobin 30.4 pg (26-32); Mean Corpuscular Hgb Concent. 34.6 g/dl (32-36); Mean Platelet Volume 12.1 fl (7.5-11.0); Platelet Count 208 K/mm3 (150-450); Red Blood Count 4.71 M/mm3 (4.1-5.4)
[2020-06-12] MEDS ORDERED: POTASSIUM CHLORIDE 20 mEq IN WATER 100ML 100 ML IV ONE ×2 (07:21→09:26)
[2020-06-12] MEDS ORDERED: Sodium Chloride 0.9% 1000 ML 1,000 ML ONE (07:21)
[2020-06-12] MEDS ORDERED: Sodium Chloride 0.9% 1000 ML 1,000 ML IV STA (07:21)
[2020-06-12 07:27] LABS: ALBUMIN 3.9 g/dL (3.5-5.0); ANION GAP 21.8 MEQ/L (5-15); Calcium 8.1 mg/dL (8.4-10.2); Creatinine 1 2.49 mg/dL (0.52-1.04); EST GLOMERULAR FILTRATION RATE 20.8 ML/MIN; MAGNESIUM 2.3 mg/dL (1.6-2.3)
[2020-06-12 07:30] LABS: Potassium 2.7 mmol/L (3.5-5.1)
[2020-06-12 07:36] LABS: INFLUENZA A NEGATIVE (NEGATIVE); INFLUENZA B NEGATIVE (NEGATIVE)
[2020-06-12 07:59] LABS: Appearance CLOUDY (CLEAR); Bilirubin SMALL (NEGATIVE); Glucose NEGATIVE (NEGATIVE); Ketones NEGATIVE (NEGATIVE); Specific Gravity >=1.030 (1.005-1.025)
[2020-06-12 08:00] LABS: Dipstick done @ ? MAIN LAB; Nitrite NEGATIVE (NEGATIVE); Protein,Urine Dip NEGATIVE (Negative); RBC MODERATE NON-HEM Ery/ul (0-5); Urobilinogen 1 mg/dL (0-1)
[2020-06-12 08:08] LABS: Bacteria PACKED /HPF (NEGATIVE); Epithelial Cells RARE /HPF (FEW); Mucus SLIGHT /HPF (NEGATIVE); WBC 51-100 /HPF (0-5)
[2020-06-12 08:39] LABS: BAND 3 % (0.0-2.0); Lymphocytes 7 % (24-44); Monocyte 4 % (0.0-12.0); Neutrophils 86 % (36.0-66.0); Platelet Estimate NORMAL (NORMAL); Total Cells Counted 100
--- NOTE | 2020-06-12 09:21 | XRAY ---
Indication: Positive Covid 19 pneumonia. Comparison: None Portable chest underinflated with diffuse bilateral infiltrates/atelectasis left greater than right. Remaining heart and bony thorax unremarkable.
[2020-06-12] MEDS ORDERED: HUMULIN R SQ PRN (13:02)
[2020-06-12] MEDS ORDERED: REMDESIVIR 200 MG in Sodium Chloride 0.9% 250 ML 250 ML IV ONE (13:02)
[2020-06-12] MEDS ORDERED: TYLENOL 325 MG PO PRN (13:02)
[2020-06-12] MEDS: Sodium Chloride 0.9% 1000 ML 1,000 ML IV SCH (13:33)
[2020-06-12] MEDS ORDERED: ZOFRAN ODT 4 MG PO PRN ×2 (17:23→17:45)
[2020-06-12] MEDS: ENOXAPARIN SODIUM SQ SCH (17:42)
[2020-06-12] MEDS: HUMALOG SQ PRN ×2 (18:24→21:38)
[2020-06-12] MEDS: Zofran 4 MG/2 ML VIAL IV PRN (21:38)
[2020-06-13] MEDS: Sodium Chloride 0.9% 1000 ML 1,000 ML IV SCH ×3 (02:52→16:31)
[2020-06-13 05:48] LABS: Hematocrit 39.6 % (35-47); Hemoglobin 13.6 gm/dl (12.0-16.0); Mean Corpuscular Hemoglobin 30.2 pg (26-32); Mean Corpuscular Hgb Concent. 34.3 g/dl (32-36); Mean Platelet Volume 12.1 fl (7.5-11.0); Platelet Count 205 K/mm3 (150-450); Red Cell Distribution Width 12.9 % (11.5-14.0)
[2020-06-13 06:44] LABS: INR 1.08 (0.8-3.0); PROTIME 12.2 SECONDS (9.95-12.35)
[2020-06-13 07:09] LABS: Creatinine 1 1.23 mg/dL (0.52-1.04)
[2020-06-13 07:10] LABS: ALBUMIN 3.4 g/dL (3.5-5.0); BILIRUBIN,TOTAL 0.7 mg/dL (0.2-1.3); Calcium 8.2 mg/dL (8.4-10.2); Potassium 2.8 mmol/L (3.5-5.1); Total Protein 6.4 g/dL (6.3-8.2)
[2020-06-13 07:11] LABS: ANION GAP 14.6 MEQ/L (5-15)
[2020-06-13] MEDS: HUMALOG SQ PRN ×3 (07:58→23:09)
[2020-06-13] MEDS: POTASSIUM CHLORIDE 20 mEq IN WATER 100ML 20 MEQ/100 ML BAG IV SCH ×2 (07:58→10:15)
--- NOTE | 2020-06-13 08:04 | HP ---
CHIEF COMPLAINT: The patient was admitted with history of COVID pneumonia, COVID dehydration. HISTORY OF PRESENT ILLNESS: The patient is a 60 year old white female who reports she has fallen twice this morning when she stands up. She has vomited three times, had four diarrhea episodes in the last 24 hours. She got a Medrol Dosepak but stopped because her blood sugar went over 400. Blood sugar was 428 when the ambulance picked her up. She is vomiting undigested food. Numerous family members have COVID. She tested positive for COVID in the emergency room on 06/12/2020. She has hypoxia with O2 of 84% on room air and just looked horrible. Nothing makes it better. Does not have any antiemetics. Family members have COVID that she lives with. She was also diagnosed the first time on 06/04/2020 less than eight days before she was seen here. Normally she sees Dr. Sahu here. She did not require oxygen when she was first seen by her family doctor. IMMUNIZATIONS: History of tetanus shot, influenza vaccine this year. Pneumococcal vaccine - No. MEDICATIONS: Metformin 1000 mg q.d., glimepiride 2 mg q.d., Losartan 50 q.d., oxybutynin 10 q.d., Verapamil 80 q.d. ALLERGIES: NKDA. PAST MEDICAL HISTORY: Hypertension, diabetes mellitus. PAST SURGICAL HISTORY: Three sections. REVIEW OF SYSTEMS: HEENT: No problems hearing or seeing normally. CHEST: Short of breath on exertion. CVS: History of hypertension. ENDOCRINE: History of diabetes for numerous years and morbid obesity. SOCIAL HISTORY: The patient is and has several grown children. 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 She is a nonsmoker, nondrinker. PHYSICAL EXAMINATION: The patient is exhausted. I can barely get her up. She is acutely ill with a grayish color and poor tinting of the skin. VITAL SIGNS: Temperature 96F, blood pressure 102/52. O2 saturation 93% at rest. HEENT: Dry mucosal membranes. NECK: Supple without adenopathy. CHEST: Clear. CVS: No murmurs or gallops. ABDOMEN: Soft. No masses or organomegaly. Very obese. NEUROLOGIC: Alert, orientated, moves arms and legs weakly but normally. LAB DATA AND TESTS: Sodium was 121, potassium 2.7 initially. Hemoglobin 14, white count 9. Lactic acid 2.5. Urine leukocytes 1+, white blood cells 100. Blood gas showed pCO2 of 21, pO2 of 77, base excess -3.2, O2 saturation 93 on O2 at 4 liters. Potassium repeat was 2.3. Lactic acid was a little bit high at 2.6. IMPRESSION: The patient has moderately severe dehydration, exhaustion, COVID pneumonia, COVID gastroenteritis, hypertension and diabetes mellitus. PLAN: Will treat with Decadron, Remdesivir, follow up blood sugars and rehydrate her. PROGNOSIS: Fair.
[2020-06-13 08:13] LABS: Slide Review YES
[2020-06-13] MEDS: Cozaar 50 MG PO SCH (09:11)
[2020-06-13] MEDS: Decadron 4 MG INJ IV SCH ×2 (09:11→21:47)
[2020-06-13] MEDS: Ditropan XL 5 MG PO SCH (09:11)
[2020-06-13] MEDS: CALAN 80 MG PO SCH (09:11)
[2020-06-13] MEDS: Amaryl 2 MG PO SCH (09:11)
[2020-06-13] MEDS: Glucophage 500 MG PO SCH (09:12)
[2020-06-13] MEDS: Zofran 4 MG/2 ML VIAL IV PRN ×2 (09:32→16:09)
[2020-06-13] MEDS ORDERED: NON-FORMULARY ITEM (Oxybutynin Chloride [Oxybutynin Chloride Er] 10 MG) PO SCH (10:00)
[2020-06-13] MEDS: REMDESIVIR 100 MG in Sodium Chloride 0.9% 100 ML IVPB 100 ML IV SCH (12:53)
[2020-06-13] MEDS: Lantus Insulin SQ SCH (12:54)
[2020-06-13] MEDS ORDERED: Klor Con 10 MEQ PO ONE (12:58)
[2020-06-13] MEDS: Klor Con 10 MEQ PO SCH ×2 (12:59→21:47)
[2020-06-13] MEDS: ENOXAPARIN SODIUM SQ SCH (16:10)
[2020-06-14 05:08] LABS: Absolute Neutrophil Ct (ANC) 6.86 (1.4-6.9); Basophil (Absolute #) 0 (0-0.4); Eosinophil % 0.1 % (0.00-5.0); Eosinophil (Absolute #) 0.01 (0-0.5); Hematocrit 39.3 % (35-47); Hemoglobin 13.2 gm/dl (12.0-16.0); Lymphocyte (Absolute #) 1.07 (1.0-4.6); Lymphocytes % 12.3 % (24.0-44.0); Mean Cell Volume 90.3 fl (78-100); Mean Corpuscular Hemoglobin 30.3 pg (26-32); Mean Corpuscular Hgb Concent. 33.6 g/dl (32-36); Mean Platelet Volume 12.1 fl (7.5-11.0); Monocyte (Absolute #) 0.77 (0.0-1.3); Monocytes % 8.8 % (0.0-12.0); Neutrophil % 78.8 % (36.0-66.0); Platelet Count 226 K/mm3 (150-450); Red Blood Count 4.35 M/mm3 (4.1-5.4); Red Cell Distribution Width 13.2 % (11.5-14.0); White Blood Count 8.7 K/mm3 (4.0-10.5)
[2020-06-14 05:33] LABS: ANION GAP 12.5 MEQ/L (5-15); BILIRUBIN,TOTAL 0.7 mg/dL (0.2-1.3); Calcium 8.3 mg/dL (8.4-10.2); Creatinine 1 1.02 mg/dL (0.52-1.04); EST GLOMERULAR FILTRATION RATE 58.4 ML/MIN; MAGNESIUM 2.8 mg/dL (1.6-2.3); Potassium 3.7 mmol/L (3.5-5.1); Total Protein 5.8 g/dL (6.3-8.2)
[2020-06-14] MEDS: HUMALOG SQ PRN ×4 (07:41→22:08)
[2020-06-14] MEDS: Klor Con 10 MEQ PO SCH ×4 (09:21→22:07)
[2020-06-14] MEDS: Cozaar 50 MG PO SCH (09:24)
[2020-06-14] MEDS: CALAN 80 MG PO SCH (09:24)
[2020-06-14] MEDS: Amaryl 2 MG PO SCH (09:24)
[2020-06-14] MEDS: Glucophage 500 MG PO SCH (09:25)
[2020-06-14] MEDS: Decadron 4 MG INJ IV SCH ×2 (09:25→22:07)
[2020-06-14] MEDS: Ditropan XL 5 MG PO SCH (09:25)
[2020-06-14] MEDS: Lantus Insulin SQ SCH (09:29)
[2020-06-14] MEDS: Macrobid 100MG Capsule PO SCH ×2 (10:45→17:17)
[2020-06-14] MEDS: Sodium Chloride 0.9% 1000 ML 1,000 ML IV SCH (10:45)
[2020-06-14] MEDS: Lomotil PO PRN ×2 (10:45→22:08)
[2020-06-14] MEDS ORDERED: Lantus Insulin SQ SCH (11:00)
[2020-06-14] MEDS: REMDESIVIR 100 MG in Sodium Chloride 0.9% 100 ML IVPB 100 ML IV SCH (13:21)
--- NOTE | 2020-06-14 13:29 | CONS ---
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 The patient reportedly started having low grade fever along with diarrhea and mild shortness of breath. She was seen in the emergency room at [facility] on 06/12/2020 and was noted to have clinical dehydration with elevated BUN. She has been started on hydration along with IV Remdesivir after testing positive for COVID-19. Her renal functions have improved. Her urine culture sent through the emergency room grew Escherichia coli which is a pansensitive strain. The patient was started on Macrobid this morning for the same. At the time of my evaluation, the patient is on supplemental oxygen. She is saturating in the mid 90's. She continues to have dry, nonproductive cough and appears mildly tachypneic at rest. She has received Remdesivir and does report some improvement mainly in her GI symptoms. The patient denies previous history of any pulmonary problems. PAST MEDICAL HISTORY: Hypertension, diabetes mellitus. PAST SURGICAL HISTORY: No recent surgery. PERSONAL AND SOCIAL HISTORY: She is a nonsmoker. 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 MEDICATIONS: Home and current medications are reviewed. ALLERGIES: NKDA. PHYSICAL EXAMINATION: This is a middle aged woman who appears mildly tachypneic. Vital signs noted. HEENT: Normocephalic. Oral exam is limited. Oropharynx is small. NECK: Supple. CVS: First and second heart sounds are normal, regular, rhythmic. RESPIRATORY: Shows diminished breath sounds. Posterior crackles are heard. ABDOMEN: Obese. EXTREMITIES: No significant leg edema is noted. LABORATORY DATA AND TESTS: Labs and x-rays reviewed. ASSESSMENT: This is a 60 year old woman admitted with: 1) Acute hypoxic respiratory failure. 2) COVID-19 positive. 3) Viral pneumonia from COVID-19. 4) History of hypertension and diabetes mellitus. 5) Renal insufficiency due to dehydration, improving. 6) Urinary tract infection present on admission secondary to Escherichia coli. RECOMMENDATIONS: 1) The patient appears to be improving although still remains hypoxic. 2) I agree with current treatment. 3) I discussed with patient role of convalescent plasma. Risks, benefits were discussed as well and she is in agreement. I believe she would definitely benefit from 2 units of convalescent plasma and the same has been ordered. 4) I agree with anticoagulation. D-dimer is positive likely from COVID-19. I will be available as needed for follow up. Will need post-discharge follow up mainly to make sure the patient does not develop pulmonary fibrosis. Further recommendations awaiting clinical improvement. Thank you for allowing me to participate in the care of Miss Reyes.
[2020-06-14 14:56] LABS: ABO TYPING A; RH TYPING POSITIVE
[2020-06-14 15:02] LABS: Antibody Screen NEGATIVE (NEGATIVE)
[2020-06-14] MEDS: ENOXAPARIN SODIUM SQ SCH (17:17)
[2020-06-15] MEDS: Sodium Chloride 0.9% 1000 ML 1,000 ML IV SCH ×5 (02:30→22:33)
[2020-06-15 05:08] LABS: Hematocrit 38.3 % (35-47); Hemoglobin 12.5 gm/dl (12.0-16.0); Mean Cell Volume 91.8 fl (78-100); Mean Corpuscular Hgb Concent. 32.6 g/dl (32-36); Mean Platelet Volume 11.6 fl (7.5-11.0); Platelet Count 247 K/mm3 (150-450); Red Blood Count 4.17 M/mm3 (4.1-5.4); Red Cell Distribution Width 13.2 % (11.5-14.0); White Blood Count 11.3 K/mm3 (4.0-10.5)
[2020-06-15 05:41] LABS: ALBUMIN 3.3 g/dL (3.5-5.0); ALKALINE PHOSPHATASE 68 U/L (38-126); ANION GAP 11.8 MEQ/L (5-15); BLOOD UREA NITROGEN 35 mg/dL (7-17); CHLORIDE 106 mmol/L (98-107); Calcium 8.5 mg/dL (8.4-10.2); Carbon Dioxide 22 mmol/L (22-30); Creatinine 1 0.81 mg/dL (0.52-1.04); EST GLOMERULAR FILTRATION RATE > 60.0 ML/MIN; Glucose 108 mg/dL (74-106); Potassium 3.8 mmol/L (3.5-5.1); SGOT/AST 42 U/L (14-36); SGPT/ALT 41 U/L (0-35); SODIUM 136 mmol/L (137-145); Total Protein 6.6 g/dL (6.3-8.2)
[2020-06-15] MEDS: Macrobid 100MG Capsule PO SCH ×2 (09:09→16:12)
[2020-06-15] MEDS: Amaryl 2 MG PO SCH (09:10)
[2020-06-15] MEDS: Decadron 4 MG INJ IV SCH ×2 (09:11→22:22)
[2020-06-15] MEDS: Glucophage 500 MG PO SCH (09:11)
[2020-06-15] MEDS: Cozaar 50 MG PO SCH (09:11)
[2020-06-15] MEDS: Ditropan XL 5 MG PO SCH (09:11)
[2020-06-15] MEDS: CALAN 80 MG PO SCH (09:11)
[2020-06-15] MEDS: Klor Con 10 MEQ PO SCH ×3 (09:12→22:22)
[2020-06-15] MEDS: Lantus Insulin SQ SCH (09:15)
--- NOTE | 2020-06-15 11:15 | PROG NOTE ---
DATE: 06/15/2020 HISTORY: The patient was admitted on 06/12/2020 with COVID pneumonia and rather severe hypoxia. She also suffers from diabetes mellitus, obesity and hypertension. She has numerous family members with it. 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 She normally sees Dr. Sahu. She has been on Metformin 1,000 q.d., Glyburide 2 q.d., losartan 50 q.d., oxybutynin q.d., Verapamil 80 q.d. for hypertension. She has required high levels of high flow oxygen to keep her O2 saturations above 90 which have done okay. Her last night she did not have any taste. Appetite is returning. Her D-dimers were above 900. Initially, she had some hypokalemia which was corrected. She was really dehydrated on admission with a creatinine about 2 and BUN 60 however that has been corrected. She feels better, eating some, short of breath on any exertion. Chest few rales at the base. CVS tachycardic. No murmurs or gallops. Abdomen normal. IMPRESSION: 1) COVID pneumonia severe. 2) Diabetes mellitus. 3) Hypertension. 4) Obesity. PLAN: The patient has been seen by Dr. Ann and he started plasma. PROGNOSIS: Guarded which she looks improved from the previous day.
[2020-06-15] MEDS: REMDESIVIR 100 MG in Sodium Chloride 0.9% 100 ML IVPB 100 ML IV SCH (13:25)
[2020-06-15] MEDS: HUMALOG SQ PRN (16:13)
[2020-06-15] MEDS: Lomotil PO PRN (16:25)
[2020-06-15] MEDS: ENOXAPARIN SODIUM SQ SCH (17:32)
[2020-06-15] MEDS: Ativan 1 MG PO SCH (22:22)
[2020-06-16 07:11] LABS: Hematocrit 37.6 % (35-47); Mean Cell Volume 93.3 fl (78-100); Mean Corpuscular Hemoglobin 29.8 pg (26-32); Mean Corpuscular Hgb Concent. 31.9 g/dl (32-36); Mean Platelet Volume 11.5 fl (7.5-11.0); Platelet Count 255 K/mm3 (150-450); Red Blood Count 4.03 M/mm3 (4.1-5.4); Red Cell Distribution Width 13.3 % (11.5-14.0); White Blood Count 10.4 K/mm3 (4.0-10.5)
[2020-06-16 07:31] LABS: ANION GAP 9.4 MEQ/L (5-15); BLOOD UREA NITROGEN 27 mg/dL (7-17); CHLORIDE 109 mmol/L (98-107); Calcium 8.3 mg/dL (8.4-10.2); Carbon Dioxide 22 mmol/L (22-30); Creatinine 1 0.66 mg/dL (0.52-1.04); EST GLOMERULAR FILTRATION RATE > 60.0 ML/MIN; Glucose 160 mg/dL (74-106); Potassium 4.3 mmol/L (3.5-5.1); SODIUM 136 mmol/L (137-145)
[2020-06-16] MEDS: Cozaar 50 MG PO SCH (08:38)
[2020-06-16] MEDS: Glucophage 500 MG PO SCH (08:38)
[2020-06-16] MEDS: Macrobid 100MG Capsule PO SCH ×2 (08:39→16:05)
[2020-06-16] MEDS: Amaryl 2 MG PO SCH (08:39)
[2020-06-16] MEDS: CALAN 80 MG PO SCH (08:39)
[2020-06-16] MEDS: Klor Con 10 MEQ PO SCH ×3 (08:39→22:53)
[2020-06-16] MEDS: Decadron 4 MG INJ IV SCH ×2 (08:39→22:53)
[2020-06-16] MEDS: Ditropan XL 5 MG PO SCH (08:40)
[2020-06-16] MEDS: Lomotil PO PRN (08:52)
[2020-06-16] MEDS: Sodium Chloride 0.9% 1000 ML 1,000 ML IV SCH (08:53)
[2020-06-16] MEDS: Lantus Insulin SQ SCH (08:53)
--- NOTE | 2020-06-16 10:42 | PCM.NOTE ---
Date and Time: 06/16/20 1039 Subjective Assessment: Patient is still short of breath. otherwise overall feeling better. vitals reviewed - Review of Systems Constitutional: No Fever, No Chills Eyes: No Symptoms Ears, Nose, & Throat: No Symptoms Respiratory: Orthopnea, Short Of Breath, No Cough Cardiac: No Chest Pain, No Edema, No Syncope Abdominal/Gastrointestinal: No Abdominal Pain, No Nausea, No Vomiting, No Diarrhea Genitourinary Symptoms: No Dysuria Musculoskeletal: No Back Pain, No Neck Pain Skin: No Rash Neurological: No Dizziness, No Focal Weakness, No Sensory Changes Psychological: No Symptoms Endocrine: No Symptoms Hematologic/Lymphatic: No Symptoms Immunological/Allergic: No Symptoms Objective Exam General Appearance: moderate distress, alert Neurologic Exam: alert, oriented x 3, cooperative, normal mood/affect, sensation nml, No motor deficits Skin Exam: normal color, warm, dry Eye Exam: PERRL, EOMI, eyes nml inspection Ears, Nose, Throat Exam: normal ENT inspection, pharynx normal, moist mucous membranes Neck Exam: normal inspection, non-tender, supple, full range of motion Respiratory Exam: diminished breath sounds, crackles/rales, rhonchi, wheezing, No respiratory distress Cardiovascular Exam: regular rate/rhythm, normal heart sounds Gastrointestinal/Abdomen Exam: soft, No tenderness, No mass Extremity Exam: normal inspection, normal range of motion Back Exam: normal inspection, normal range of motion, No CVA tenderness, No vertebral tenderness Pelvic Exam: deferred Rectal Exam: deferred OBJECTIVE DATA Vital Signs: Vital Signs - 24 hr Temp Pulse Resp BP Pulse Ox 06/16/20 10:09 92 L 06/16/20 10:00 21 06/16/20 09:43 73 91 L 06/16/20 08:58 88 L 06/16/20 08:43 74 22 88 L 06/16/20 07:55 18 06/16/20 07:37 988 F 68 18 146/66 94 L 06/16/20 07:00 64 18 94 L 06/16/20 06:00 27 H 06/16/20 05:38 65 21 94 L 06/16/20 05:05 62 20 94 L 06/16/20 04:00 99.0 F 70 28 H 115/54 94 L 06/16/20 02:53 65 21 93 L 12/19/20 02:07 64 22 94 L 06/16/20 02:00 28 H 06/16/20 00:46 67 22 91 L 06/16/20 00:00 28 H 06/15/20 23:49 99.5 F 75 20 122/57 95 06/15/20 22:42 74 26 H 95 06/15/20 22:00 26 H 06/15/20 21:44 74 21 92 L 06/15/20 21:09 74 22 92 L 06/15/20 20:00 29 H 06/15/20 19:37 99.3 F 71 22 129/56 91 L 06/15/20 19:13 91 L 06/15/20 18:58 73 15 93 L 06/15/20 17:57 15 06/15/20 17:36 68 24 98 06/15/20 17:00 76 18 90 L 06/15/20 16:00 99.5 F 71 21 114/71 92 L 06/15/20 14:59 70 24 94 L 06/15/20 14:00 76 18 91 L 06/15/20 12:55 78 24 90 L 06/15/20 12:00 24 06/15/20 11:35 95 06/15/20 11:32 99.2 F 66 22 105/61 93 L 06/15/20 10:52 61 27 H 91 L Oxygen-Last 24 hours Oxygen Flowrate (L/min)-RT 4 Oxygen Flowrate (L/min)-RT 6 Pain Assessment - Last Documented Pain Intensity 0 Intake and Output: Intake & Output 06/13/20 06/14/20 06/15/20 06/16/20 11:59 11:59 11:59 11:59 Intake Total 1799 3169 4278 2361 Output Total 2050 2550 1450 1175 Balance -041 947 1654 1186 Weight 123.6 kg 123.6 kg 125.2 kg Lab Results: Lab Results-Last 24 Hours 06/15/20 06/15/20 06/15/20 Range/Units 11:05 16:10 21:04 WBC (4.0-10.5) K/mm3 RBC (4.1-5.4) M/mm3 Hgb (12.0-16.0) gm/dl Hct (35-47) % MCV (78-100) fl MCH (26-32) pg MCHC (32-36) g/dl RDW (11.5-14.0) % Plt Count (150-450) K/mm3 MPV (7.5-11.0) fl D-Dimer (215-500) ng/mL Sodium (137-145) mmol/L Potassium (3.5-5.1) mmol/L Chloride (98-107) mmol/L Carbon Dioxide (22-30) mmol/L Anion Gap (5-15) MEQ/L BUN (7-17) mg/dL Creatinine (0.52-1.04) mg/dL Estimated GFR ML/MIN Glucose (74-106) mg/dL POC Glucometer 123 H 279 H 203 H (74 to 106) mg/dL Calcium (8.4-10.2) mg/dL 06/16/20 06/16/20 06/16/20 Range/Units 06:45 06:45 06:45 WBC 10.4 (4.0-10.5) K/mm3 RBC 4.03 L (4.1-5.4) M/mm3 Hgb 12.0 (12.0-16.0) gm/dl Hct 37.6 (35-47) % MCV 93.3 (78-100) fl MCH 29.8 (26-32) pg MCHC 31.9 L (32-36) g/dl RDW 13.3 (11.5-14.0) % Plt Count 255 (150-450) K/mm3 MPV 11.5 H (7.5-11.0) fl D-Dimer 358 (215-500) ng/mL Sodium 136 L (137-145) mmol/L Potassium 4.3 (3.5-5.1) mmol/L Chloride 109 H (98-107) mmol/L Carbon Dioxide 22 (22-30) mmol/L Anion Gap 9.4 (5-15) MEQ/L BUN 27 H (7-17) mg/dL Creatinine 0.66 (0.52-1.04) mg/dL Estimated GFR > 60.0 ML/MIN Glucose 160 H (74-106) mg/dL POC Glucometer (74 to 106) mg/dL Calcium 8.3 L (8.4-10.2) mg/dL 06/16/20 Range/Units 07:25 WBC (4.0-10.5) K/mm3 RBC (4.1-5.4) M/mm3 Hgb (12.0-16.0) gm/dl Hct (35-47) % MCV (78-100) fl MCH (26-32) pg MCHC (32-36) g/dl RDW (11.5-14.0) % Plt Count (150-450) K/mm3 MPV (7.5-11.0) fl D-Dimer (215-500) ng/mL Sodium (137-145) mmol/L Potassium (3.5-5.1) mmol/L Chloride (98-107) mmol/L Carbon Dioxide (22-30) mmol/L Anion Gap (5-15) MEQ/L BUN (7-17) mg/dL Creatinine (0.52-1.04) mg/dL Estimated GFR ML/MIN Glucose (74-106) mg/dL POC Glucometer 142 H (74 to 106) mg/dL Calcium (8.4-10.2) mg/dL Multi-Disciplinary Progress Notes: Multi-Disciplinary Progress Notes 06/15/20 14:32 Case Management Note by Jackie Gonzalez S/W PATIENT ABOUT NEEDS AT DC. SHE PLANS TO RETURN HOME WITH HER DAUGHTER TO ASSIST HER NEEDED. SHE REFUSED [facility] SERVICES AND REPORTS SHE WILL BE ABLE TO GET A GLUCOMETER OTC. PATIENT WILL LIKELY NEED HOME OXYGEN WHICH WILL NEED ARRANGED AT TIME OF DC Initialized on 06/15/20 14:32 - END OF NOTE Assessment/Plan (1) Pneumonia due to COVID-19 virus Current Visit: Yes Status: Acute Onset Date: ~06/11/20 Assessment & Plan: Vital Signs Temp 988 F 06/16/20 07:37 Pulse 73 06/16/20 09:43 Resp 21 06/16/20 10:00 BP 146/66 06/16/20 07:37 Pulse Ox 92 L 06/16/20 10:09 Intake & Output 06/15/20 06/15/20 06/16/20 11:59 23:59 11:59 Intake Total 1563 1355 1006 Output Total 950 650 525 Balance 613 705 481 Weight 125.2 kg Intake: Intake, Oral Amount 698 700 440 Intake, IV Amount 786 655 566 Output: Output, Rodriguez: 950 650 525 Other: Number of Bowel Movements 2 Chief Complaint Diagnosis Nausea, vomiting, diarrhea, weakness, covid +, fall Allergies Allergy/AdvReac Type Severity Reaction Status Date / Time No Known Drug Allergies Allergy Verified 06/12/20 05:56 Vital Signs (Last 24 hours) Temp Pulse Resp BP Pulse Ox 06/16/20 10:09 92 L 06/16/20 10:00 21 06/16/20 09:43 73 91 L 06/16/20 08:58 88 L 06/16/20 08:43 74 22 88 L 06/16/20 07:55 18 06/16/20 07:37 988 F 68 18 146/66 94 L 06/16/20 07:00 64 18 94 L 06/16/20 06:00 27 H 06/16/20 05:38 65 21 94 L 06/16/20 05:05 62 20 94 L 06/16/20 04:00 99.0 F 70 28 H 115/54 94 L 06/16/20 02:53 65 21 93 L 06/16/20 02:07 64 22 94 L 06/16/20 02:00 28 H 06/16/20 00:46 67 22 91 L 06/16/20 00:00 28 H 06/15/20 23:49 99.5 F 75 20 122/57 95 06/15/20 22:42 74 26 H 95 06/15/20 22:00 26 H 06/15/20 21:44 74 21 92 L 06/15/20 21:09 74 22 92 L 06/15/20 20:00 29 H 06/15/20 19:37 99.3 F 71 22 129/56 91 L 06/15/20 19:13 91 L 06/15/20 18:58 73 15 93 L 06/15/20 17:57 15 06/15/20 17:36 68 24 98 06/15/20 17:00 76 18 90 L 06/15/20 16:00 99.5 F 71 21 114/71 92 L 06/15/20 14:59 70 24 94 L 06/15/20 14:00 76 18 91 L 06/15/20 12:55 78 24 90 L 06/15/20 12:00 24 06/15/20 11:35 95 06/15/20 11:32 99.2 F 66 22 105/61 93 L 06/15/20 10:52 61 27 H 91 L Current Medications Generic Name Dose Route Start Last Admin Trade Name Freq PRN Reason Stop Dose Admin Acetaminophen 650 mg 06/12/20 13:02 Tylenol 325 Mg PO 07/12/20 13:01 Q4H PRN PRN PAIN, FEVER, HEADACHE Dexamethasone Sodium Phosphate 4 mg 06/13/20 10:00 06/16/20 08:39 Decadron 4 Mg Inj IV 07/13/20 09:59 4 mg Q12HT JESSICA Administration Diphenoxylate HCl/Atropine 1 tablet 06/14/20 10:36 06/16/20 08:52 Lomotil PO 07/14/20 10:35 1 tablet QID PRN PRN Administration DIARRHEA Enoxaparin Sodium 60 mg 06/12/20 18:00 06/15/20 17:32 Enoxaparin Sodium SQ 07/12/20 17:59 60 mg 1800 JESSICA Administration Glimepiride 2 mg 06/13/20 10:00 06/16/20 08:39 Amaryl 2 Mg PO 07/13/20 09:59 2 mg DAILY JESSICA Administration Sodium Chloride 1,000 mls @ 100 mls/hr 06/12/20 13:02 06/16/20 08:53 Sodium Chloride 0.9% 1000 Ml IV 07/12/20 13:01 Not Given .Q10H JESSICA Remdesivir 100 mg/ Sodium 100 mls @ 100 mls/hr 06/13/20 13:00 06/15/20 13:25 Chloride IV 06/16/20 13:59 100 mls/hr Q24H JESSICA Administration Insulin Glargine 60 unit 06/15/20 10:00 06/16/20 08:53 Lantus Insulin SQ 07/13/20 10:59 60 unit DAILY JESSICA Administration Insulin Human Lispro 0 unit 06/12/20 17:45 06/15/20 16:13 Humalog SQ 07/12/20 17:44 6 unit UD PRN Administration Lorazepam 2 mg 06/15/20 22:00 06/15/20 22:22 Ativan 1 Mg PO 07/15/20 21:59 2 mg HS JESSICA Administration Losartan Potassium 50 mg 06/13/20 10:00 06/16/20 08:38 Cozaar 50 Mg PO 07/13/20 09:59 50 mg DAILY JESSICA Administration Metformin HCl 1,000 mg 06/13/20 10:00 06/16/20 08:38 Glucophage 500 Mg PO 07/13/20 09:59 1,000 mg DAILY JESSICA Administration Nitrofurantoin Macrocrystals 100 mg 06/14/20 10:30 06/16/20 08:39 Macrobid 100mg Capsule PO 06/20/20 17:01 100 mg BIDWM JESSICA Administration Ondansetron HCl 4 mg 06/12/20 13:02 06/13/20 16:09 Zofran 4 Mg/2 Ml Vial IV 07/12/20 13:01 4 mg Q6H PRN PRN Administration NAUSEA/VOMITING Ondansetron HCl 4 mg 06/12/20 17:45 Zofran Odt 4 Mg PO 07/12/20 17:22 Q4H PRN PRN VOMITING Oxybutynin Chloride 10 mg 06/13/20 10:00 06/16/20 08:40 Ditropan Xl 5 Mg PO 07/13/20 09:59 10 mg DAILY JESSICA Administration Potassium Chloride 20 meq 06/13/20 15:00 06/16/20 08:39 Klor Con 10 Meq PO 07/13/20 14:59 20 meq TID JESSICA Administration Verapamil HCl 80 mg 06/13/20 10:00 06/16/20 08:39 Calan 80 Mg PO 07/13/20 09:59 80 mg DAILY JESSICA Administration Discontinued Medications Generic Name Dose Route Start Last Admin Trade Name Freq PRN Reason Stop Dose Admin Dexamethasone Sodium Phosphate 8 mg 06/12/20 06:39 06/12/20 06:45 Decadron 10mg Inj. IV 06/12/20 06:40 8 mg STAT ONE Administration Potassium Chloride 20 meq in 100 mls @ 50 mls/hr 06/12/20 07:18 06/12/20 07:23 Potassium Chloride 20 Meq In Water 100ml IV 06/12/20 09:17 50 mls/hr STAT ONE Administration Sodium Chloride 1,000 mls @ 999 mls/hr 06/12/20 07:21 06/12/20 09:24 Sodium Chloride 0.9% 1000 Ml IV 06/12/20 08:21 Infused .Q1H1M STA Infusion Sodium Chloride Confirm 06/12/20 07:21 Sodium Chloride 0.9% 1000 Ml Administered 06/12/20 07:22 Dose 1,000 mls @ ud .ROUTE .STK-MED ONE Potassium Chloride Confirm 06/12/20 07:21 Potassium Chloride 20 Meq In Water 100ml Administered 06/12/20 07:22 Dose 100 mls @ ud IV .STK-MED ONE Potassium Chloride Confirm 06/12/20 09:26 Potassium Chloride 20 Meq In Water 100ml Administered 06/12/20 09:27 Dose 100 mls @ ud IV .STK-MED ONE Potassium Chloride 20 meq in 100 mls @ 50 mls/hr 06/12/20 09:30 06/12/20 09:31 Potassium Chloride 20 Meq In Water 100ml IV 06/12/20 11:29 50 mls/hr STAT ONE Administration Remdesivir 200 mg/ Sodium 250 mls @ 125 mls/hr 06/12/20 13:02 06/12/20 14:18 Chloride IV 06/12/20 15:01 125 mls/hr ONCE ONE Administration Potassium Chloride 20 meq in 100 mls @ 50 mls/hr 06/13/20 07:45 06/13/20 10:15 Potassium Chloride 20 Meq In Water 100ml IV 06/13/20 11:44 50 mls/hr Q2H JESSICA Administration Insulin Glargine 40 unit 06/13/20 11:00 06/14/20 09:29 Lantus Insulin SQ 07/13/20 10:59 40 unit DAILY JESSICA Administration Insulin Glargine 20 unit 06/14/20 11:00 06/14/20 10:46 Lantus Insulin SQ 06/14/20 12:00 20 unit 1100 JESSICA Administration Insulin Human Regular 0 unit 06/12/20 13:02 Humulin R SQ 07/12/20 13:01 UD PRN HYPERGLYCEMIA Ondansetron HCl 4 mg 06/12/20 17:23 Zofran Odt 4 Mg PO 07/12/20 17:22 Q6H PRN PRN VOMITING Potassium Chloride Confirm 06/13/20 12:58 Klor Con 10 Meq Administered 06/13/20 12:59 Dose 20 meq PO .STK-MED ONE Intake & Output (Last 24 hours) 06/13/20 06/14/20 06/15/20 06/16/20 11:59 11:59 11:59 11:59 Intake Total 1799 3169 4278 2361 Output Total 2050 2550 1450 1175 Balance -272 956 9018 1186 Weight 123.6 kg 123.6 kg 125.2 kg Microbiology Results (Last 24 hours) 06/12/20 06:50 Blood Blood Culture Gram Stain - Final Not Reportable 06/12/20 06:50 Blood Blood Culture - Final NO GROWTH 06/12/20 06:40 Blood Blood Culture Gram Stain - Final Not Reportable 06/12/20 06:40 Blood Blood Culture - Final NO GROWTH Laboratory Results (Last 24 hours) 06/16/20 06/16/20 06/16/20 07:25 06:45 06:45 WBC RBC Hgb Hct MCV MCH MCHC RDW Plt Count MPV D-Dimer 358 Sodium 136 L Potassium 4.3 Chloride 109 H Carbon Dioxide 22 Anion Gap 9.4 BUN 27 H Creatinine 0.66 Estimated GFR > 60.0 Glucose 160 H POC Glucometer 142 H Calcium 8.3 L 06/16/20 06/15/20 06/15/20 06:45 21:04 16:10 WBC 10.4 RBC 4.03 L Hgb 12.0 Hct 37.6 MCV 93.3 MCH 29.8 MCHC 31.9 L RDW 13.3 Plt Count 255 MPV 11.5 H D-Dimer Sodium Potassium Chloride Carbon Dioxide Anion Gap BUN Creatinine Estimated GFR Glucose POC Glucometer 203 H 279 H Calcium 06/15/20 11:05 WBC RBC Hgb Hct MCV MCH MCHC RDW Plt Count MPV D-Dimer Sodium Potassium Chloride Carbon Dioxide Anion Gap BUN Creatinine Estimated GFR Glucose POC Glucometer 123 H Calcium Orders (Last 24 hours) Category Date Time Status BMP AM.LAB Lab 06/16/20 06:45 Completed CBC AM.LAB Lab 06/16/20 06:45 Completed D-DIMER QUANTITATIVE AM.LAB Lab 06/16/20 06:45 Completed POCT GLUCOSE Stat Lab 06/15/20 11:05 Completed POCT GLUCOSE Stat Lab 06/15/20 16:10 Completed POCT GLUCOSE Stat Lab 06/15/20 21:04 Completed POCT GLUCOSE Stat Lab 06/16/20 07:25 Completed Insulin Glargine [Lantus Insulin] Med 06/15/20 10:00 Active 60 unit SQ DAILY Lorazepam 1 mg [Ativan 1 MG] Med 06/15/20 22:00 Active 2 mg PO HS Patient Care Notes (Last 24 hours) 06/16/20 07:30 Nursing Note by Eugenie Beasley O2 sat 96% @ 6L,oxygen decreased to 4L NC and o2 sat 92% Initialized on 06/16/20 07:30 - END OF NOTE 06/15/20 14:32 Case Management Note by Jackie Gonzalez S/W PATIENT ABOUT NEEDS AT DC. SHE PLANS TO RETURN HOME WITH HER DAUGHTER TO ASSIST HER NEEDED. SHE REFUSED [facility] SERVICES AND REPORTS SHE WILL BE ABLE TO GET A GLUCOMETER OTC. PATIENT WILL LIKELY NEED HOME OXYGEN WHICH WILL NEED ARRANGED AT TIME OF DC Initialized on 06/15/20 14:32 - END OF NOTE Code(s): U07.1 - COVID-19; J12.89 - OTHER VIRAL PNEUMONIA (2) COVID-19 Current Visit: Yes Status: Acute Code(s): U07.1 - COVID-19 (3) Generalized weakness Current Visit: Yes Status: Acute Code(s): R53.1 - WEAKNESS (4) COVID-19 virus infection Current Visit: No Status: Acute Code(s): U07.1 - COVID-19
[2020-06-16] MEDS: REMDESIVIR 100 MG in Sodium Chloride 0.9% 100 ML IVPB 100 ML IV SCH (12:47)
[2020-06-16] MEDS: ENOXAPARIN SODIUM SQ SCH (16:05)
[2020-06-16] MEDS: HUMALOG SQ PRN (17:12)
[2020-06-16] MEDS: Ativan 1 MG PO SCH (22:53)
[2020-06-17 07:04] LABS: Absolute Neutrophil Ct (ANC) 8.07 (1.4-6.9); Basophil (Absolute #) 0 (0-0.4); Eosinophil % 0.3 % (0.00-5.0); Eosinophil (Absolute #) 0.03 (0-0.5); Hematocrit 37.7 % (35-47); Lymphocyte (Absolute #) 1.07 (1.0-4.6); Lymphocytes % 10.8 % (24.0-44.0); Mean Cell Volume 93.8 fl (78-100); Mean Corpuscular Hemoglobin 29.9 pg (26-32); Mean Corpuscular Hgb Concent. 31.8 g/dl (32-36); Monocyte (Absolute #) 0.74 (0.0-1.3); Monocytes % 7.5 % (0.0-12.0); Neutrophil % 81.4 % (36.0-66.0); Platelet Count 282 K/mm3 (150-450); Red Blood Count 4.02 M/mm3 (4.1-5.4); Red Cell Distribution Width 13.4 % (11.5-14.0); White Blood Count 9.9 K/mm3 (4.0-10.5)
[2020-06-17 07:13] LABS: ALKALINE PHOSPHATASE 63 U/L (38-126); ANION GAP 9.3 MEQ/L (5-15); BLOOD UREA NITROGEN 22 mg/dL (7-17); CHLORIDE 110 mmol/L (98-107); Calcium 8.6 mg/dL (8.4-10.2); Carbon Dioxide 22 mmol/L (22-30); Creatinine 1 0.62 mg/dL (0.52-1.04); EST GLOMERULAR FILTRATION RATE > 60.0 ML/MIN; Glucose 179 mg/dL (74-106); Potassium 4.5 mmol/L (3.5-5.1); SGOT/AST 28 U/L (14-36); SGPT/ALT 27 U/L (0-35); SODIUM 137 mmol/L (137-145); Total Protein 6.2 g/dL (6.3-8.2)
--- NOTE | 2020-06-17 07:46 | PCM.NOTE ---
Date and Time: 06/17/20742 Subjective Assessment: still very short of breath, requires 6 L oxygen nasal cannula, patient is also feeling weak and lethargic. Patient is unable to maintain oxygen saturation at acceptable level. - Review of Systems Constitutional: Fatigue, Lethargy, Weakness, No Fever, No Chills Eyes: No Symptoms Ears, Nose, & Throat: No Symptoms Respiratory: Orthopnea, Short Of Breath, Wheezing, No Cough Cardiac: No Chest Pain, No Edema, No Syncope Abdominal/Gastrointestinal: No Abdominal Pain, No Nausea, No Vomiting, No Diarrhea Genitourinary Symptoms: No Dysuria Musculoskeletal: No Back Pain, No Neck Pain Skin: No Rash Neurological: No Dizziness, No Focal Weakness, No Sensory Changes Psychological: No Symptoms Endocrine: No Symptoms Hematologic/Lymphatic: No Symptoms Immunological/Allergic: No Symptoms Objective Exam General Appearance: moderate distress, alert Neurologic Exam: alert, oriented x 3, cooperative, normal mood/affect, No motor deficits Skin Exam: normal color, warm, dry Eye Exam: PERRL, EOMI, eyes nml inspection Ears, Nose, Throat Exam: normal ENT inspection, pharynx normal, moist mucous membranes Neck Exam: normal inspection, non-tender, supple, full range of motion Respiratory Exam: diminished breath sounds, crackles/rales, rhonchi, wheezing, No respiratory distress Cardiovascular Exam: regular rate/rhythm, normal heart sounds Gastrointestinal/Abdomen Exam: soft, No tenderness, No mass Extremity Exam: normal inspection, normal range of motion Back Exam: normal inspection, normal range of motion, No CVA tenderness, No vertebral tenderness Pelvic Exam: deferred Rectal Exam: deferred OBJECTIVE DATA Vital Signs: Vital Signs - 24 hr Temp Pulse Resp BP Pulse Ox 06/17/20 06:59 61 25 H 90 L 06/17/20 05:41 61 20 92 L 06/17/20 04:42 62 21 90 L 06/17/20 04:10 98.9 F 67 28 H 121/61 90 L 06/17/20 04:00 28 H 06/17/20 03:01 72 20 91 L 06/17/20 01:44 83 20 93 L 06/17/20 00:54 70 23 88 L 06/17/20 00:00 22 06/16/20 23:34 99.3 F 81 22 115/62 96 06/16/20 22:57 61 26 H 96 06/16/20 22:01 60 20 93 L 06/16/20 20:56 60 25 H 96 06/16/20 20:01 99.6 F 79 24 151/65 93 L 06/16/20 20:00 26 H 06/16/20 19:50 92 L 06/16/20 19:27 67 20 86 L 06/16/20 18:00 18 06/16/20 17:52 72 18 06/16/20 17:00 63 18 92 L 06/16/20 16:00 99.4 F 69 18 135/63 95 06/16/20 15:00 69 94 L 06/16/20 14:00 22 06/16/20 13:57 66 93 L 06/16/20 12:52 66 22 122/59 92 L 06/16/20 12:00 22 06/16/20 11:40 99.4 F 68 18 122/59 91 L 06/16/20 11:00 101 H 20 92 L 06/16/20 10:09 92 L 06/16/20 10:00 21 06/16/20 09:43 73 91 L 06/16/20 08:58 88 L 06/16/20 08:43 74 22 88 L 06/16/20 07:55 18 Oxygen-Last 24 hours Oxygen Flowrate (L/min)-RT 4 Oxygen Flowrate (L/min)-RT 4 Pain Assessment - Last Documented Pain Intensity 0 Intake and Output: Intake & Output 06/14/20 06/15/20 06/16/20 06/17/20 11:59 11:59 11:59 11:59 Intake Total 3163 4278 2361 840 Output Total 2550 1450 1175 2150 Balance 619 2828 1186 -1310 Weight 123.6 kg 125.2 kg Lab Results: Lab Results-Last 24 Hours 06/13/20 06/16/20 06/16/20 Range/Units 04:45 06:45 06:45 WBC (4.0-10.5) K/mm3 RBC (4.1-5.4) M/mm3 Hgb (12.0-16.0) gm/dl Hct (35-47) % MCV (78-100) fl MCH (26-32) pg MCHC (32-36) g/dl RDW (11.5-14.0) % Plt Count (150-450) K/mm3 MPV (7.5-11.0) fl Gran % (36.0-66.0) % Eos # (Auto) (0-0.5) Absolute Lymphs (auto) (1.0-4.6) Absolute Monos (auto) (0.0-1.3) Lymphocytes % (24.0-44.0) % Monocytes % (0.0-12.0) % Eosinophils % (0.00-5.0) % Basophils % (0.0-0.4) % Absolute Granulocytes (1.4-6.9) Basophils # (0-0.4) D-Dimer 358 (215-500) ng/mL Sodium 136 L (137-145) mmol/L Potassium 4.3 (3.5-5.1) mmol/L Chloride 109 H (98-107) mmol/L Carbon Dioxide 22 (22-30) mmol/L Anion Gap 9.4 (5-15) MEQ/L BUN 27 H (7-17) mg/dL Creatinine 0.66 (0.52-1.04) mg/dL Estimated GFR > 60.0 ML/MIN Glucose 160 H (74-106) mg/dL POC Glucometer (74 to 106) mg/dL Calcium 8.3 L (8.4-10.2) mg/dL Total Bilirubin (0.2-1.3) mg/dL AST (14-36) U/L ALT (0-35) U/L Alkaline Phosphatase (38-126) U/L Serum Total Protein (6.3-8.2) g/dL Albumin (3.5-5.0) g/dL Testosterone Level 6 (3-41) ng/dL Free Testosteron pg/mL 0.5 (0.0-4.2) pg/mL 06/16/20 06/16/20 06/16/20 Range/Units 11:28 16:25 20:46 WBC (4.0-10.5) K/mm3 RBC (4.1-5.4) M/mm3 Hgb (12.0-16.0) gm/dl Hct (35-47) % MCV (78-100) fl MCH (26-32) pg MCHC (32-36) g/dl RDW (11.5-14.0) % Plt Count (150-450) K/mm3 MPV (7.5-11.0) fl Gran % (36.0-66.0) % Eos # (Auto) (0-0.5) Absolute Lymphs (auto) (1.0-4.6) Absolute Monos (auto) (0.0-1.3) Lymphocytes % (24.0-44.0) % Monocytes % (0.0-12.0) % Eosinophils % (0.00-5.0) % Basophils % (0.0-0.4) % Absolute Granulocytes (1.4-6.9) Basophils # (0-0.4) D-Dimer (215-500) ng/mL Sodium (137-145) mmol/L Potassium (3.5-5.1) mmol/L Chloride (98-107) mmol/L Carbon Dioxide (22-30) mmol/L Anion Gap (5-15) MEQ/L BUN (7-17) mg/dL Creatinine (0.52-1.04) mg/dL Estimated GFR ML/MIN Glucose (74-106) mg/dL POC Glucometer 250 H 346 H 229 H (74 to 106) mg/dL Calcium (8.4-10.2) mg/dL Total Bilirubin (0.2-1.3) mg/dL AST (14-36) U/L ALT (0-35) U/L Alkaline Phosphatase (38-126) U/L Serum Total Protein (6.3-8.2) g/dL Albumin (3.5-5.0) g/dL Testosterone Level (3-41) ng/dL Free Testosteron pg/mL (0.0-4.2) pg/mL 06/17/20 06/17/20 06/17/20 Range/Units 06:35 06:35 06:35 WBC 9.9 (4.0-10.5) K/mm3 RBC 4.02 L (4.1-5.4) M/mm3 Hgb 12.0 (12.0-16.0) gm/dl Hct 37.7 (35-47) % MCV 93.8 (78-100) fl MCH 29.9 (26-32) pg MCHC 31.8 L (32-36) g/dl RDW 13.4 (11.5-14.0) % Plt Count 282 (150-450) K/mm3 MPV 11.0 (7.5-11.0) fl Gran % 81.4 H (36.0-66.0) % Eos # (Auto) 0.03 (0-0.5) Absolute Lymphs (auto) 1.07 (1.0-4.6) Absolute Monos (auto) 0.74 (0.0-1.3) Lymphocytes % 10.8 L (24.0-44.0) % Monocytes % 7.5 (0.0-12.0) % Eosinophils % 0.3 (0.00-5.0) % Basophils % 0.0 (0.0-0.4) % Absolute Granulocytes 8.07 H (1.4-6.9) Basophils # 0 (0-0.4) D-Dimer 500 (215-500) ng/mL Sodium 137 (137-145) mmol/L Potassium 4.5 (3.5-5.1) mmol/L Chloride 110 H (98-107) mmol/L Carbon Dioxide 22 (22-30) mmol/L Anion Gap 9.3 (5-15) MEQ/L BUN 22 H (7-17) mg/dL Creatinine 0.62 (0.52-1.04) mg/dL Estimated GFR > 60.0 ML/MIN Glucose 179 H (74-106) mg/dL POC Glucometer (74 to 106) mg/dL Calcium 8.6 (8.4-10.2) mg/dL Total Bilirubin 1.00 (0.2-1.3) mg/dL AST 28 (14-36) U/L ALT 27 (0-35) U/L Alkaline Phosphatase 63 (38-126) U/L Serum Total Protein 6.2 L (6.3-8.2) g/dL Albumin 3.0 L (3.5-5.0) g/dL Testosterone Level (3-41) ng/dL Free Testosteron pg/mL (0.0-4.2) pg/mL Assessment/Plan (1) Pneumonia due to COVID-19 virus Current Visit: Yes Status: Acute Onset Date: ~06/11/20 Assessment & Plan: Continue Present management. We will continue patient's on 6 L of nasal cannula. Patient is not stable enough to be discharged. Code(s): U07.1 - COVID-19; J12.89 - OTHER VIRAL PNEUMONIA (2) COVID-19 Current Visit: Yes Status: Acute Code(s): U07.1 - COVID-19 (3) Generalized weakness Current Visit: Yes Status: Acute Code(s): R53.1 - WEAKNESS (4) COVID-19 virus infection Current Visit: No Status: Acute Code(s): U07.1 - COVID-19
[2020-06-17] MEDS: Klor Con 10 MEQ PO SCH ×3 (09:24→21:12)
[2020-06-17] MEDS: Amaryl 2 MG PO SCH (09:27)
[2020-06-17] MEDS: Cozaar 50 MG PO SCH (09:27)
[2020-06-17] MEDS: Decadron 4 MG INJ IV SCH ×2 (09:27→21:13)
[2020-06-17] MEDS: CALAN 80 MG PO SCH (09:27)
[2020-06-17] MEDS: Ditropan XL 5 MG PO SCH (09:27)
[2020-06-17] MEDS: Macrobid 100MG Capsule PO SCH ×2 (09:27→17:13)
[2020-06-17] MEDS: Glucophage 500 MG PO SCH (09:27)
[2020-06-17] MEDS: Lantus Insulin SQ SCH (09:28)
[2020-06-17] MEDS: ENOXAPARIN SODIUM SQ SCH (17:14)
[2020-06-17] MEDS: HUMALOG SQ PRN ×2 (17:16→21:13)
[2020-06-17] MEDS: Ativan 1 MG PO SCH (21:13)
[2020-06-18] MEDS: Klor Con 10 MEQ PO SCH ×3 (08:04→23:00)
[2020-06-18] MEDS: Glucophage 500 MG PO SCH (08:04)
[2020-06-18] MEDS: Decadron 4 MG INJ IV SCH ×2 (08:04→23:00)
[2020-06-18] MEDS: CALAN 80 MG PO SCH (08:04)
[2020-06-18] MEDS: Amaryl 2 MG PO SCH (08:05)
[2020-06-18] MEDS: Macrobid 100MG Capsule PO SCH ×2 (08:05→16:22)
[2020-06-18] MEDS: Cozaar 50 MG PO SCH (08:05)
[2020-06-18] MEDS: Lomotil PO PRN (08:05)
[2020-06-18] MEDS: Ditropan XL 5 MG PO SCH (08:06)
[2020-06-18] MEDS: Lantus Insulin SQ SCH (08:06)
[2020-06-18] MEDS: HUMALOG SQ PRN ×4 (08:06→23:25)
[2020-06-18] MEDS: DIFLUCAN PO SCH (11:45)
[2020-06-18] MEDS: ENOXAPARIN SODIUM SQ SCH (16:22)
[2020-06-18] MEDS: Ativan 1 MG PO SCH (23:01)
[2020-06-19 06:24] LABS: ALBUMIN 3.2 g/dL (3.5-5.0); ALKALINE PHOSPHATASE 64 U/L (38-126); BLOOD UREA NITROGEN 26 mg/dL (7-17); CHLORIDE 107 mmol/L (98-107); Calcium 9.1 mg/dL (8.4-10.2); Carbon Dioxide 21 mmol/L (22-30); Creatinine 1 0.66 mg/dL (0.52-1.04); EST GLOMERULAR FILTRATION RATE > 60.0 ML/MIN; Glucose 219 mg/dL (74-106); SGOT/AST 70 U/L (14-36); SGPT/ALT 49 U/L (0-35); SODIUM 135 mmol/L (137-145); Total Protein 6.6 g/dL (6.3-8.2)
[2020-06-19] MEDS: Macrobid 100MG Capsule PO SCH ×2 (08:27→17:48)
[2020-06-19] MEDS: Amaryl 2 MG PO SCH (08:29)
[2020-06-19] MEDS: Glucophage 500 MG PO SCH (08:29)
[2020-06-19] MEDS: Cozaar 50 MG PO SCH (09:17)
[2020-06-19] MEDS: CALAN 80 MG PO SCH (09:17)
[2020-06-19] MEDS: Decadron 4 MG INJ IV SCH ×2 (09:18→22:01)
[2020-06-19] MEDS: DIFLUCAN PO SCH (09:19)
[2020-06-19] MEDS: Ditropan XL 5 MG PO SCH (09:19)
[2020-06-19] MEDS: Klor Con 10 MEQ PO SCH ×2 (09:20→16:12)
[2020-06-19] MEDS: Lantus Insulin SQ SCH (09:26)
[2020-06-19] MEDS: QUESTRAN Light 4 GM Packet PO SCH (16:22)
[2020-06-19] MEDS: ENOXAPARIN SODIUM SQ SCH (17:48)
[2020-06-19] MEDS: Ativan 1 MG PO SCH (22:01)
[2020-06-19] MEDS: HUMALOG SQ PRN (22:01)
[2020-06-20 05:22] LABS: Hematocrit 43.5 % (35-47); Hemoglobin 13.9 gm/dl (12.0-16.0); Mean Cell Volume 94.6 fl (78-100); Mean Corpuscular Hemoglobin 30.2 pg (26-32); Mean Platelet Volume 10.5 fl (7.5-11.0); Platelet Count 359 K/mm3 (150-450); Red Cell Distribution Width 13.3 % (11.5-14.0); White Blood Count 11.3 K/mm3 (4.0-10.5)
[2020-06-20] MEDS: Sodium Chloride 0.9% 10 ML FLUSH Syringe IV SCH ×3 (05:23→21:04)
[2020-06-20 06:14] LABS: ALBUMIN 3.5 g/dL (3.5-5.0); ALKALINE PHOSPHATASE 66 U/L (38-126); ANION GAP 11.8 MEQ/L (5-15); BLOOD UREA NITROGEN 28 mg/dL (7-17); CHLORIDE 102 mmol/L (98-107); Calcium 9.3 mg/dL (8.4-10.2); Carbon Dioxide 26 mmol/L (22-30); EST GLOMERULAR FILTRATION RATE > 60.0 ML/MIN; Glucose 292 mg/dL (74-106); Potassium 4.8 mmol/L (3.5-5.1); SGOT/AST 77 U/L (14-36); SGPT/ALT 72 U/L (0-35); SODIUM 135 mmol/L (137-145); TSH, 3RD Generation 0.816 mIU/L (0.47-4.68); Total Protein 6.8 g/dL (6.3-8.2)
[2020-06-20] MEDS: Macrobid 100MG Capsule PO SCH ×2 (08:08→17:46)
[2020-06-20] MEDS: Ditropan XL 5 MG PO SCH (09:41)
[2020-06-20] MEDS: DIFLUCAN PO SCH (09:41)
[2020-06-20] MEDS: QUESTRAN Light 4 GM Packet PO SCH (09:41)
[2020-06-20] MEDS: Glucophage 500 MG PO SCH (09:41)
[2020-06-20] MEDS: Amaryl 2 MG PO SCH (09:41)
[2020-06-20] MEDS: Cozaar 50 MG PO SCH (09:41)
[2020-06-20] MEDS: Decadron 4 MG INJ IV SCH ×2 (09:41→21:03)
[2020-06-20] MEDS: CALAN 80 MG PO SCH (09:41)
[2020-06-20] MEDS: Lantus Insulin SQ SCH (09:44)
[2020-06-20] MEDS: HUMALOG SQ PRN ×4 (09:46→20:59)
[2020-06-20] MEDS: ENOXAPARIN SODIUM SQ SCH (17:46)
[2020-06-20] MEDS: Ativan 1 MG PO SCH (21:03)
[2020-06-21 05:23] LABS: Hematocrit 41.9 % (35-47); Hemoglobin 13.6 gm/dl (12.0-16.0); Mean Cell Volume 94.4 fl (78-100); Mean Corpuscular Hemoglobin 30.6 pg (26-32); Mean Corpuscular Hgb Concent. 32.5 g/dl (32-36); Mean Platelet Volume 11.1 fl (7.5-11.0); Platelet Count 321 K/mm3 (150-450); Red Blood Count 4.44 M/mm3 (4.1-5.4); White Blood Count 11.6 K/mm3 (4.0-10.5)
[2020-06-21] MEDS: HUMALOG SQ PRN (08:58)
[2020-06-21] MEDS: Sodium Chloride 0.9% 10 ML FLUSH Syringe IV SCH (10:28)
[2020-06-21] MEDS: QUESTRAN Light 4 GM Packet PO SCH (10:31)
[2020-06-21] MEDS: Glucophage 500 MG PO SCH (10:31)
[2020-06-21] MEDS: Ditropan XL 5 MG PO SCH (10:31)
[2020-06-21] MEDS: CALAN 80 MG PO SCH (10:31)
[2020-06-21] MEDS: Amaryl 2 MG PO SCH (10:31)
[2020-06-21] MEDS: Cozaar 50 MG PO SCH (10:31)
[2020-06-21] MEDS: Decadron 4 MG INJ IV SCH (10:31)
[2020-06-21] MEDS: Lantus Insulin SQ SCH (10:31)
[2020-06-21 11:31] VITALS: BP 124/68
[2020-06-21] MEDS: DIFLUCAN PO SCH (12:20)
[2020-06-21 13:06] VITALS: PULSE 74
[2020-06-21 14:14] VITALS: O2SAT 93
[2020-06-21] MEDS ORDERED: Ativan 1 MG PO SCH (22:00)
== END 2020-06-21 15:11 | disposition home or self-care (01) | DRG 177 ==
LOC: ED 05:48 → MED SURG 13:00
PROVIDERS: ADMIT Family Medicine; ATTEND Family Medicine
DX: U07.1 COVID-19 (principal); J12.89 Other viral pneumonia; J96.01 Acute respiratory failure with hypoxia; A08.39 Other viral enteritis; N39.0 Urinary tract infection, site not specified; E86.0 Dehydration; B96.20 Unspecified Escherichia coli [E. coli] as the cause of diseases classified elsewhere; I10 Essential (primary) hypertension; E11.9 Type 2 diabetes mellitus without complications; Z79.899 Other long term (current) drug therapy; E87.6 Hypokalemia; N28.9 Disorder of kidney and ureter, unspecified
CPT/HCPCS: 36000; 36415; 36430; 36600; 51702; 71045; 80048; 80053; 81015; 82375; 82652; 82670; 82803; 82947; 83036; 83605; 83735; 84403; 84443; 84484; 85025; 85027; 85379; 85610; 86850; 86900; 86901; 86931; 87040; 87077; 87086; 87186; 87400; 93005; 93041; 94760; 94762; 96360; 96365; 96366; 96374; 99285; 99291; J1100; J1650; J1817; J2405; J3480; P9017; A9270-GY

== ENCOUNTER 2021-07-15 09:39 | Observation (INO) | payer OTHER ==
[2021-07-15] MEDS ORDERED: Sodium Chloride 0.9% 1000 ML 1,000 ML IV STA (09:54)
--- NOTE | 2021-07-15 09:58 | ERPHSYRPT ---
- History of Present Illness Time Seen by Provider: 07/15/21 09:45 Source: patient Exam Limitations: no limitations Physician History: Patient is a 61-year-old diabetic presents to our ED with complaints of high blood sugars x3 days. Patient states her blood sugars have been in the 400 range. Patient has not had an appetite. Patient states she has not been drinking her water or taking her insulin as recommended. Patient vomited once. No other complaints. No chest pain. No shortness of breath. No trauma. No fever. Symptoms are constant. Symptoms are moderate in intensity. No specific worsening or improving factors. Patient voices no other complaints or concerns at this time. Timing/Duration: day(s) (3 days) Severity: moderate Modifying Factors: Improves With: nothing Associated Symptoms: nausea, vomiting, No abdominal pain, No shortness of breath, No heartburn, No cough, No chills, No chest pain, No headaches, No malaise, No syncope, No seizure, No weakness Allergies/Adverse Reactions: metformin Adverse Reaction (Verified 07/15/21 09:44) Home Medications: Glimepiride 2 mg [Amaryl 2 MG] 4 mg PO DAILY 09/02/18 [History] Oxybutynin Chloride [Oxybutynin Chloride ER] 20 mg PO DAILY 09/02/18 [History] Verapamil HCl 80 mg [Calan 80 mg] 80 mg PO DAILY 09/02/18 [History] Aspirin EC 81 mg [Ecotrin 81 mg] 81 mg PO DAILY 07/15/21 [History] Insulin Glargine,Hum.rec.anlog [Basaglar Kwikpen U-100] 35 units SQ BID 07/15/21 [History] Hx Tetanus, Diphtheria Vaccination/Date Given: Yes Hx Influenza Vaccination/Date Given: Yes Hx Pneumococcal Vaccination/Date Given: No - Review of Systems Constitutional: No Symptoms, No Fever, No Chills Eyes: No Symptoms Ears, Nose, & Throat: No Symptoms Respiratory: No Symptoms, No Cough, No Dyspnea Cardiac: No Symptoms, No Chest Pain, No Edema, No Syncope Abdominal/Gastrointestinal: No Symptoms, No Abdominal Pain, No Nausea, No Vomiting, No Diarrhea Genitourinary Symptoms: No Symptoms, No Dysuria Musculoskeletal: No Symptoms, No Back Pain, No Neck Pain Skin: No Symptoms, No Rash Neurological: No Symptoms, No Dizziness, No Focal Weakness, No Sensory Changes Psychological: No Symptoms Endocrine: No Symptoms Hematologic/Lymphatic: No Symptoms Immunological/Allergic: No Symptoms All Other Systems: Reviewed and Negative - Past Medical History Pertinent Past Medical History: Yes Neurological History: No Pertinent History ENT History: No Pertinent History Cardiac History: Hypertension Respiratory History: No Pertinent History Endocrine Medical History: Diabetes Type II Musculoskeletal History: No Pertinent History GI Medical History: No Pertinent History History: No Pertinent History Psycho-Social History: No Pertinent History Female Reproductive Disorders: No Pertinent History - Past Surgical History Past Surgical History: Yes Neuro Surgical History: No Pertinent History Cardiac: No Pertinent History Respiratory: No Pertinent History Gastrointestinal: No Pertinent History Genitourinary: No Pertinent History Musculoskeletal: Orthopedic Surgery Female Surgical History: Section Other Surgical History: 3- , back surgery - Social History Smoking Status: Never smoker Exposure to second hand smoke: Yes Drug Use: none Patient Lives Alone: No - Nursing Vital Signs Nursing Vital Signs: Initial Vital Signs Temperature 98.4 F 07/15/21 09:39 Pulse Rate 112 H 07/15/21 09:39 Respiratory Rate 20 07/15/21 09:39 Blood Pressure 140/77 07/15/21 09:39 O2 Sat by Pulse Oximetry 98 07/15/21 09:39 Pain Scale Pain Intensity 0 - Physical Exam General Appearance: no apparent distress, alert Eye Exam: PERRL/EOMI, eyes nml inspection Ears, Nose, Throat Exam: normal ENT inspection, TMs normal, pharynx normal, moist mucous membranes Neck Exam: normal inspection, non-tender, supple, full range of motion Respiratory Exam: normal breath sounds, lungs clear, airway intact, No respiratory distress Cardiovascular Exam: regular rate/rhythm, normal heart sounds, normal peripheral pulses Gastrointestinal/Abdomen Exam: soft, normal bowel sounds, No tenderness, No mass Back Exam: normal inspection, normal range of motion, No CVA tenderness, No vertebral tenderness Extremity Exam: normal inspection, normal range of motion, pelvis stable Neurologic Exam: alert, oriented x 3, cooperative, normal mood/affect, sensation nml, No motor deficits Skin Exam: normal color, warm, dry, No rash Lymphatic Exam: No adenopathy SpO2 Interpretation: normal SpO2: 98 O2 Delivery: Room Air - Course Nursing assessment & vital signs reviewed: Yes EKG Interpreted by Me: RATE (103), Sinus Rhythm, Sinus Tach (103), NORMAL AXIS, NORMAL INTERVALS Ordered Tests: Active Orders 24 hr Category Date Time Status Bedrest ROUTINE Activity 07/15/21 13:16 Active Scaler Packer STAT Care 07/15/21 09:55 Completed Code Status Order ROUTINE Care 07/15/21 13:16 Active EKG-ER Only STAT Care 07/15/21 09:54 Completed IV Care Q6H Care 07/15/21 13:16 Active IV Insertion STAT Care 07/15/21 09:54 Completed IV Insertion-2nd Peripheral STAT Care 07/15/21 11:23 Completed Neuro Checks Q4H Care 07/15/21 13:[address] in Observation ROUTINE Care 07/15/21 13:16 Active Pulse Oximetry (ED) STAT Care 07/15/21 09:54 Completed Telemetry q6h Care 07/15/21 13:16 Active Consistent Carbohydrate Diet 1800 Calorie Diet 07/15/21 Lunch Active ABG [ARTERIAL BLOOD GASES] Stat Lab 07/15/21 12:11 Completed CBC W DIFF AM.LAB Lab 07/16/21 04:00 Ordered CBC W DIFF Stat Lab 07/15/21 10:00 Completed CMP AM.LAB Lab 07/16/21 04:00 Ordered CMP Stat Lab 07/15/21 10:00 Completed CULTURE,URINE Stat Lab 07/15/21 10:05 Received Manual Differential NC Stat Lab 07/15/21 10:00 Completed POCT GLUCOSE Stat Lab 07/15/21 09:47 Completed TROPONIN Q3H Lab 07/15/21 10:00 Completed TROPONIN Q3H Lab 07/15/21 13:06 Completed TROPONIN Q3H Lab 07/15/21 16:15 Completed UA W/RFX UR CULTURE Stat Lab 07/15/21 10:05 Completed Pulse Oximetry CONTINUOUS RT 07/15/21 13:16 Completed Medication Summary Generic Name Dose Route Start Last Admin Trade Name Freq PRN Reason Stop Dose Admin Aspirin 81 mg 07/15/21 17:00 07/15/21 17:16 Aspirin 81 Mg Tablet.Ec PO 08/14/21 16:59 81 mg DAILY JESSICA Administration Cholestyramine Resin 4 gm 07/15/21 16:32 Cholestyramine Light 4 Gm Packet PO 08/14/21 16:31 DAILY PRN PRN DIARRHEA Glimepiride 4 mg 07/15/21 17:00 07/15/21 17:17 Glimepiride 2 Mg Tablet PO 08/14/21 16:59 4 mg BREAKFAST JESSICA Administration Ceftriaxone Sodium/Dextrose 1 g in 50 mls @ 100 mls/hr 07/16/21 10:00 Rocephin 1 Gm-D5w 50 Ml Bag IV 07/19/21 09:59 Q24H10 JESSICA Sodium Chloride 1,000 mls @ 100 mls/hr 07/15/21 19:15 Sodium Chloride 0.9% 1000 Ml IV 08/14/21 19:14 .Q10H JESSICA Potassium Chloride 20 meq in 100 mls @ 50 mls/hr 07/15/21 21:00 07/15/21 23:33 Potassium Chloride 20 Meq In Water 100ml IV 07/16/21 00:59 50 mls/hr Q2H JESSICA Administration Insulin Glargine 35 unit 07/15/21 22:00 07/15/21 22:30 Insulin Glargine 1 Unit SQ 08/14/21 21:59 35 unit BID JESSICA Administration Insulin Human Lispro 0 unit 07/15/21 15:49 07/15/21 22:30 Insulin Lispro 1 Unit SQ 08/14/21 15:48 9 unit UD PRN Administration HYPERGLYCEMIA Morphine Sulfate 4 mg 07/15/21 13:16 Morphine Sulfate 4 Mg/Ml Injection IV 07/20/21 13:15 Q4H PRN PRN PAIN Ondansetron HCl 4 mg 07/15/21 13:16 Ondansetron Hcl 4 Mg/2 Ml Vial IV 08/14/21 13:15 Q6H PRN PRN NAUSEA/VOMITING Ondansetron HCl 4 mg 07/15/21 16:32 Zofran 4 Mg/Udtablet Orally Disintegrating PO 08/14/21 16:31 Q6H PRN PRN VOMITING Oxybutynin Chloride 20 mg 07/15/21 17:00 07/15/21 17:16 Oxybutynin Chloride Xl 5 Mg Tab PO 08/14/21 16:59 20 mg DAILY JESSICA Administration Verapamil HCl 80 mg 07/15/21 17:00 07/15/21 17:17 Verapamil Hcl 80 Mg Tablet PO 08/14/21 16:59 80 mg DAILY JESSICA Administration Discontinued Medications Generic Name Dose Route Start Last Admin Trade Name Freq PRN Reason Stop Dose Admin Glimepiride 4 mg 07/15/21 17:00 Glimepiride 2 Mg Tablet PO 08/14/21 16:59 DAILY JESSICA Sodium Chloride 1,000 mls @ 999 mls/hr 07/15/21 09:54 07/15/21 10:07 Sodium Chloride 0.9% 1000 Ml IV 07/15/21 10:54 999 mls/hr .Q1H1M STA Administration Sodium Chloride Confirm 07/15/21 10:06 Sodium Chloride 0.9% 1000 Ml Administered 07/15/21 10:07 Dose 1,000 mls @ ud .ROUTE .STK-MED ONE Ceftriaxone Sodium/Dextrose 1 g in 50 mls @ 100 mls/hr 07/16/21 10:00 Rocephin 1 Gm-D5w 50 Ml Bag IV 07/19/21 09:59 Q24H10 JESSICA Potassium Chloride 20 meq in 100 mls @ 50 mls/hr 07/15/21 11:00 07/15/21 15:21 Potassium Chloride 20 Meq In Water 100ml IV 07/15/21 14:59 Not Given Q2H JESSICA Ceftriaxone Sodium/Dextrose Confirm 07/15/21 10:56 Rocephin 1 Gm-D5w 50 Ml Bag Administered 07/15/21 10:57 Dose 1 g in 50 mls @ ud IV .STK-MED ONE Sodium Chloride 1,000 mls @ 100 mls/hr 07/15/21 12:45 07/15/21 12:41 Sodium Chloride 0.9% 1000 Ml IV 08/14/21 12:44 100 mls/hr .Q10H JESSICA Administration Potassium Chloride 20 meq in 100 mls @ 50 mls/hr 07/15/21 14:43 07/15/21 15:15 Potassium Chloride 20 Meq In Water 100ml IV 07/15/21 16:42 50 mls/hr ONCE ONE Administration Lab/Rad Data: Laboratory Result Diagrams 07/15/21 10:00 07/15/21 10:00 Laboratory Results 07/15/21 07/15/21 07/15/21 Range/Units 12:11 10:53 10:05 WBC (4.0-10.5) K/mm3 RBC (4.1-5.4) M/mm3 Hgb (12.0-16.0) gm/dl Hct (35-47) % MCV (78-100) fl MCH (26-32) pg MCHC (32-36) g/dl RDW (11.5-14.0) % Plt Count (150-450) K/mm3 MPV (7.5-11.0) fl Segmented Neutrophils (36.0-66.0) % Lymphocytes (Manual) (24-44) % Monocytes (Manual) (0.0-12.0) % Toxic Granulation Platelet Estimate (NORMAL) RBC Morphology Puncture Site LEFT RADIAL pCO2 22 L (35-45) mmHg pO2 161 H* (75-100) mmHg Base Excess -2.3 L (-2.0-2.0) O2 Saturation 96.9 (94-100) g/dF ABG pH 7.53 H (7.35-7.45) ABG HCO3 18.4 L (22-28) ABG O2 Sat (Measured) 99.2 (95-100) % Jaspreet Test YES A-a Gradient -39 a/A Ratio 1.32 Hemoglobin 15.6 Carboxyhemoglobin 1.3 (0.0-6.9) % THgb Methemoglobin 1.1 L (1.4-1.5) % Temperature 37.0 C POC O2 Flow Rate 21 % Sodium (137-145) mmol/L Potassium 2.9 L* (3.5-5.1) mmol/L Chloride (98-107) mmol/L Carbon Dioxide (22-30) mmol/L Anion Gap (5-15) MEQ/L BUN (7-17) mg/dL Creatinine (0.52-1.04) mg/dL Estimated GFR ML/MIN Glucose (74-106) mg/dL POC Glucometer (74 to 106) mg/dL Calcium (8.4-10.2) mg/dL Total Bilirubin (0.2-1.3) mg/dL AST (14-36) U/L ALT (0-35) U/L Alkaline Phosphatase (38-126) U/L Troponin I (0.000-0.034) ng/mL Serum Total Protein (6.3-8.2) g/dL Albumin (3.5-5.0) g/dL Urine Color CHRISTIANO (YELLOW) Urine Appearance CLOUDY (CLEAR) Urine pH 5.0 (5-6) Ur Specific [place] 1.016 (1.005-1.025) Urine Protein 30 (Negative) Urine Ketones NEGATIVE (NEGATIVE) Urine Blood NEGATIVE (0-5) Lazarus/ul Urine Nitrite NEGATIVE (NEGATIVE) Urine Bilirubin NEGATIVE (NEGATIVE) Urine Urobilinogen 4 (0-1) mg/dL Ur Leukocyte Esterase LARGE (NEGATIVE) Urine WBC (Auto) >100 (0-5) /HPF Urine RBC (Auto) 6-10 (0-2) /HPF U Hyaline Cast (Auto) 11-25 (0-2) /LPF U Epithel Cells (Auto) RARE (FEW) /HPF Urine Bacteria (Auto) PACKED (NEGATIVE) /HPF Urine Mucus (Auto) SLIGHT (NEGATIVE) /HPF Urine Culture Reflexed YES (NO) Urine Glucose NEGATIVE (NEGATIVE) mg/dL Influenza Type A Ag NEGATIVE (NEGATIVE) Influenza Type B Ag NEGATIVE (NEGATIVE) RSV (PCR) NEGATIVE (Negative) SARS-CoV-2 (PCR) NEGATIVE (NEGATIVE) 07/15/21 07/15/21 07/15/21 Range/Units 10:00 10:00 10:00 WBC 20.8 H (4.0-10.5) K/mm3 RBC 5.31 (4.1-5.4) M/mm3 Hgb 16.4 H (12.0-16.0) gm/dl Hct 45.9 (35-47) % MCV 86.4 (78-100) fl MCH 30.9 (26-32) pg MCHC 35.7 (32-36) g/dl RDW 12.1 (11.5-14.0) % Plt Count 519 H (150-450) K/mm3 MPV 11.0 (7.5-11.0) fl Segmented Neutrophils 79 H (36.0-66.0) % Lymphocytes (Manual) 16 L (24-44) % Monocytes (Manual) 5 (0.0-12.0) % Toxic Granulation 1+ Platelet Estimate INCREASED (NORMAL) RBC Morphology NORMAL Puncture Site pCO2 (35-45) mmHg pO2 (75-100) mmHg Base Excess (-2.0-2.0) O2 Saturation (94-100) g/dF ABG pH (7.35-7.45) ABG HCO3 (22-28) ABG O2 Sat (Measured) (95-100) % Jaspreet Test A-a Gradient a/A Ratio Hemoglobin Carboxyhemoglobin (0.0-6.9) % THgb Methemoglobin (1.4-1.5) % Temperature C POC O2 Flow Rate % Sodium 126 L (137-145) mmol/L Potassium 3.0 L* (3.5-5.1) mmol/L Chloride 81 L (98-107) mmol/L Carbon Dioxide 18 L (22-30) mmol/L Anion Gap 29.8 H (5-15) MEQ/L BUN 96 H (7-17) mg/dL Creatinine 3.71 H (0.52-1.04) mg/dL Estimated GFR 13.1 ML/MIN Glucose 434 H (74-106) mg/dL POC Glucometer (74 to 106) mg/dL Calcium 10.4 H (8.4-10.2) mg/dL Total Bilirubin 1.30 (0.2-1.3) mg/dL AST 41 H (14-36) U/L ALT 43 H (0-35) U/L Alkaline Phosphatase 126 (38-126) U/L Troponin I < 0.012 (0.000-0.034) ng/mL Serum Total Protein 9.1 H (6.3-8.2) g/dL Albumin 5.4 H (3.5-5.0) g/dL Urine Color (YELLOW) Urine Appearance (CLEAR) Urine pH (5-6) Ur Specific [place] (1.005-1.025) Urine Protein (Negative) Urine Ketones (NEGATIVE) Urine Blood (0-5) Lazarus/ul Urine Nitrite (NEGATIVE) Urine Bilirubin (NEGATIVE) Urine Urobilinogen (0-1) mg/dL Ur Leukocyte Esterase (NEGATIVE) Urine WBC (Auto) (0-5) /HPF Urine RBC (Auto) (0-2) /HPF U Hyaline Cast (Auto) (0-2) /LPF U Epithel Cells (Auto) (FEW) /HPF Urine Bacteria (Auto) (NEGATIVE) /HPF Urine Mucus (Auto) (NEGATIVE) /HPF Urine Culture Reflexed (NO) Urine Glucose (NEGATIVE) mg/dL Influenza Type A Ag (NEGATIVE) Influenza Type B Ag (NEGATIVE) RSV (PCR) (Negative) SARS-CoV-2 (PCR) (NEGATIVE) 07/15/21 Range/Units 09:47 WBC (4.0-10.5) K/mm3 RBC (4.1-5.4) M/mm3 Hgb (12.0-16.0) gm/dl Hct (35-47) % MCV (78-100) fl MCH (26-32) pg MCHC (32-36) g/dl RDW (11.5-14.0) % Plt Count (150-450) K/mm3 MPV (7.5-11.0) fl Segmented Neutrophils (36.0-66.0) % Lymphocytes (Manual) (24-44) % Monocytes (Manual) (0.0-12.0) % Toxic Granulation Platelet Estimate (NORMAL) RBC Morphology Puncture Site pCO2 (35-45) mmHg pO2 (75-100) mmHg Base Excess (-2.0-2.0) O2 Saturation (94-100) g/dF ABG pH (7.35-7.45) ABG HCO3 (22-28) ABG O2 Sat (Measured) (95-100) % Jaspreet Test A-a Gradient a/A Ratio Hemoglobin Carboxyhemoglobin (0.0-6.9) % THgb Methemoglobin (1.4-1.5) % Temperature C POC O2 Flow Rate % Sodium (137-145) mmol/L Potassium (3.5-5.1) mmol/L Chloride (98-107) mmol/L Carbon Dioxide (22-30) mmol/L Anion Gap (5-15) MEQ/L BUN (7-17) mg/dL Creatinine (0.52-1.04) mg/dL Estimated GFR ML/MIN Glucose (74-106) mg/dL POC Glucometer 406 H (74 to 106) mg/dL Calcium (8.4-10.2) mg/dL Total Bilirubin (0.2-1.3) mg/dL AST (14-36) U/L ALT (0-35) U/L Alkaline Phosphatase (38-126) U/L Troponin I (0.000-0.034) ng/mL Serum Total Protein (6.3-8.2) g/dL Albumin (3.5-5.0) g/dL Urine Color (YELLOW) Urine Appearance (CLEAR) Urine pH (5-6) Ur Specific [place] (1.005-1.025) Urine Protein (Negative) Urine Ketones (NEGATIVE) Urine Blood (0-5) Lazarus/ul Urine Nitrite (NEGATIVE) Urine Bilirubin (NEGATIVE) Urine Urobilinogen (0-1) mg/dL Ur Leukocyte Esterase (NEGATIVE) Urine WBC (Auto) (0-5) /HPF Urine RBC (Auto) (0-2) /HPF U Hyaline Cast (Auto) (0-2) /LPF U Epithel Cells (Auto) (FEW) /HPF Urine Bacteria (Auto) (NEGATIVE) /HPF Urine Mucus (Auto) (NEGATIVE) /HPF Urine Culture Reflexed (NO) Urine Glucose (NEGATIVE) mg/dL Influenza Type A Ag (NEGATIVE) Influenza Type B Ag (NEGATIVE) RSV (PCR) (Negative) SARS-CoV-2 (PCR) (NEGATIVE) - Progress Progress: improved Progress Note: Case discussed with Dr. Sahu who accepts admission to observation. Plan of care discussed with patient. She agrees to admission at [facility] for further evaluation and treatment. 07/16/21 01:18 Discussed with .: Ignacio Will see patient in: hospital (observation) Counseled pt/family regarding: diagnosis, rad results - Departure Departure Disposition: Observation Clinical Impression: Hyperglycemia, UTI (urinary tract infection), Hypokalemia, Acute renal injury, Leukocytosis, Dehydration, Non compliance w medication regimen DKA (diabetic ketoacidosis) Qualifiers: Diabetes mellitus type: type 2 Diabetes mellitus complication detail: without coma Qualified Code(s): E11.10 - Type 2 diabetes mellitus with ketoacidosis without coma Condition: Stable Critical Care Time: No
[2021-07-15 10:04] LABS: Hematocrit 45.9 % (35-47); Hemoglobin 16.4 gm/dl (12.0-16.0); Mean Cell Volume 86.4 fl (78-100); Mean Corpuscular Hemoglobin 30.9 pg (26-32); Mean Corpuscular Hgb Concent. 35.7 g/dl (32-36); Platelet Count 519 K/mm3 (150-450); Red Blood Count 5.31 M/mm3 (4.1-5.4); Red Cell Distribution Width 12.1 % (11.5-14.0); White Blood Count 20.8 K/mm3 (4.0-10.5)
[2021-07-15] MEDS ORDERED: Sodium Chloride 0.9% 1000 ML 1,000 ML ONE (10:06)
[2021-07-15 10:16] LABS: ALBUMIN 5.4 g/dL (3.5-5.0); ANION GAP 29.8 MEQ/L (5-15); BILIRUBIN,TOTAL 1.3 mg/dL (0.2-1.3); Calcium 10.4 mg/dL (8.4-10.2); Creatinine 1 3.71 mg/dL (0.52-1.04); EST GLOMERULAR FILTRATION RATE 13.1 ML/MIN; Total Protein 9.1 g/dL (6.3-8.2)
[2021-07-15 10:18] LABS: Appearance CLOUDY (CLEAR); Bacteria PACKED /HPF (NEGATIVE); Bilirubin NEGATIVE (NEGATIVE); Blood NEGATIVE Ery/ul (0-5); Epithelial Cells RARE /HPF (FEW); Glucose NEGATIVE (NEGATIVE); Ketones NEGATIVE (NEGATIVE); Leukocyte Esterase LARGE (NEGATIVE); Mucus SLIGHT /HPF (NEGATIVE); Nitrite NEGATIVE (NEGATIVE); Protein,Urine Dip 30 (Negative); Specific Gravity 1.016 (1.005-1.025); Urobilinogen 4 mg/dL (0-1); WBC >100 /HPF (0-5)
[2021-07-15] MEDS ORDERED: ROCEPHIN 1 Gm-D5w 50 ml Bag** 1 G/50 ML IVPB IV ONE ×2 (10:56)
[2021-07-15] MEDS: POTASSIUM CHLORIDE 20 mEq IN WATER 100ML 20 MEQ/100 ML BAG IV SCH ×4 (11:01→23:33)
[2021-07-15 11:34] LABS: Lymphocytes 16 % (24-44); Monocyte 5 % (0.0-12.0); Neutrophils 79 % (36.0-66.0); Platelet Estimate INCREASED (NORMAL); Total Cells Counted 100; Toxic Granulation 1+
[2021-07-15 11:44] LABS: INFLUENZA A NEGATIVE (NEGATIVE); INFLUENZA B NEGATIVE (NEGATIVE); RESPIRATORY SYNCTIAL VIRUS NEGATIVE (Negative); SARS-CoV-2 Xpert Express NEGATIVE (NEGATIVE)
[2021-07-15 12:19] LABS: A-aADO2 -39; ABG HEMOGLOBIN 15.6; ABG POTASSIUM 2.9 (3.5-5.1); ARTERIAL BLD GAS O2 SATURATION 99.2 % (95-100); ARTERIAL BLOOD GAS BASE EXCESS -2.3 (-2.0-2.0); ARTERIAL BLOOD GAS FIO2 21 %; ARTERIAL BLOOD GAS PCO2 22 mmHg (35-45); ARTERIAL BLOOD GAS PO2 161 mmHg (75-100); ARTERIAL BLOOD GAS pH 7.53 (7.35-7.45); CARBOXYHEMOGLOBIN 1.3 % THgb (0.0-6.9); HCO3- 18.4 (22-28); HGB O2 SAT 96.9 g/dF (94-100); Methhemoglobin 1.1 % (1.4-1.5)
[2021-07-15 12:20] LABS: ABG SITE LEFT RADIAL; ALLEN TEST OK? YES
[2021-07-15] MEDS ORDERED: Sodium Chloride 0.9% 1000 ML 1,000 ML IV SCH (12:45)
[2021-07-15] MEDS ORDERED: MORPHINE SULFATE 4 MG INJ IV PRN (13:16)
[2021-07-15] MEDS ORDERED: Zofran 4 MG/2 ML VIAL IV PRN (13:16)
[2021-07-15] MEDS ORDERED: POTASSIUM CHLORIDE 20 mEq IN WATER 100ML 20 MEQ/100 ML BAG IV ONE (14:43)
[2021-07-15] MEDS ORDERED: QUESTRAN Light 4 GM Packet PO PRN (16:32)
[2021-07-15] MEDS ORDERED: ZOFRAN ODT 4 MG PO PRN (16:32)
[2021-07-15] MEDS ORDERED: Amaryl 2 MG PO SCH (17:00)
[2021-07-15] MEDS: ECOTRIN 81 MG PO SCH (17:16)
[2021-07-15] MEDS: Ditropan XL 5 MG PO SCH (17:16)
[2021-07-15] MEDS: CALAN 80 MG PO SCH (17:17)
[2021-07-15] MEDS: Amaryl 2 MG PO SCH (17:17)
[2021-07-15] MEDS: HUMALOG SQ PRN ×2 (17:39→22:30)
--- NOTE | 2021-07-15 18:19 | PCM.HP ---
History of Present Illness - Chief Complaint Chief Complaint: weakness for 1-2 days History of Present Illness: is a 61 year old female.presents to our ED with complaints of high blood sugars x3 days. Patient states her blood sugars have been in the 400 range. Patient has not had an appetite. Patient states she has not been drinking her water or taking her insulin as recommended. Patient vomited once. No other complaints. No chest pain. No shortness of breath. No trauma. No fever. Symptoms are constant. Symptoms are moderate in intensity. No specific worsening or improving factors. Patient voices no other complaints or concerns at this time. Timing/Duration: day(s) (3 days) Severity: moderate Modifying Factors: Improves With: nothing Associated Symptoms: nausea, vomiting, No abdominal pain, No shortness of breath, No heartburn, No cough, No chills, No chest pain, No headaches, No malaise, No syncope, No seizure, No weakness - Review of Systems Constitutional: Malaise, Weakness, No Fever, No Chills Eyes: No Symptoms Ears, Nose, & Throat: No Symptoms Respiratory: No Cough, No Short Of Breath Cardiac: No Chest Pain, No Edema, No Syncope Abdominal/Gastrointestinal: No Abdominal Pain, No Nausea, No Vomiting, No Diarrhea Genitourinary Symptoms: No Dysuria Musculoskeletal: No Back Pain, No Neck Pain Skin: No Rash Neurological: No Dizziness, No Focal Weakness, No Sensory Changes Psychological: No Symptoms Endocrine: No Symptoms Hematologic/Lymphatic: No Symptoms Immunological/Allergic: No Symptoms Medications & Allergies Home Medications: Home Medication List Glimepiride 2 mg [Amaryl 2 MG] 4 mg PO DAILY 09/02/18 [History Confirmed 07/15/21] Oxybutynin Chloride [Oxybutynin Chloride ER] 20 mg PO DAILY 09/02/18 [History Confirmed 07/15/21] Verapamil HCl 80 mg [Calan 80 mg] 80 mg PO DAILY 09/02/18 [History Confirmed 07/15/21] Ondansetron ODT 4 MG [Zofran Odt 4 mg] 4 mg PO Q6H PRN PRN #10 tab.rapdis 06/06/20 [Rx Confirmed 07/15/21] Cholestyramine Light 4 gm [QUESTRAN Light 4 GM Packet] 4 gm PO DAILY PRN PRN #30 packet 06/21/20 [Rx Confirmed 07/15/21] Aspirin EC 81 mg [Ecotrin 81 mg] 81 mg PO DAILY 07/15/21 [History Confirmed 07/15/21] Insulin Glargine,Hum.rec.anlog [Basaglar Kwikpen U-100] 35 units SQ BID 07/15/21 [History Confirmed 07/15/21] Allergies/Adverse Reactions: Allergies Allergy/AdvReac Type Severity Reaction Status Date / Time metformin AdvReac Verified 07/15/21 09:44 - Past Medical History Past Medical History: Yes Neurological History: No Pertinent History ENT History: No Pertinent History Cardiac History: Hypertension, Other Respiratory History: COPD Endocrine Medical History: Diabetes Type II Musculoskelatal History: No Pertinent History GI Medical History: Other History: No Pertinent History Pyscho-Social History: No Pertinent History Reproductive Disorders: No Pertinent History Comment: fatty liver , seeing a [employer] chair currently for "slow heart rate" - Female History Are you now?: No - Past Surgical History Past Surgical History: Yes Neuro Surgical History: No Pertinent History Cardiac History: No Pertinent History Respiratory Surgery: No Pertinent History GI Surgical History: No Pertinent History Genitourinary Surgical Hx: No Pertinent History Musculskeletal Surgical Hx: Orthopedic Surgery Female Surgical History: Section Other Surgical History: 3- , back surgery - Social History Smoking Status: Never smoker Exposure to second hand smoke: Yes Alcohol: None Drug Use: none - Physical Exam Vital Signs: Vital Signs - 24 hr Temp Pulse Resp BP Pulse Ox 07/15/21 17:03 97.3 F 108 H 118/70 96 07/15/21 15:01 96 07/15/21 13:44 97.3 F 108 H 20 118/70 96 07/15/21 13:16 96 07/15/21 13:03 96.3 F 108 H 20 118/70 96 07/15/21 13:00 96.3 F 108 H 20 118/70 96 07/15/21 12:03 102 H 18 117/78 97 07/15/21 11:59 103 H 18 123/79 96 07/15/21 11:55 98 07/15/21 10:39 100 H 18 113/79 97 07/15/21 10:05 96 07/15/21 09:39 98.4 F 112 H 20 140/77 98 General Appearance: no apparent distress, alert, lethargy Neurologic Exam: alert, oriented x 3, cooperative, normal mood/affect, sensation nml, No motor deficits Eye Exam: PERRL/EOMI, eyes nml inspection Ears, Nose, Throat Exam: normal ENT inspection, TMs normal, pharynx normal, moist mucous membranes Neck Exam: normal inspection, non-tender, supple, full range of motion Respiratory Exam: normal breath sounds, lungs clear, No respiratory distress Cardiovascular Exam: regular rate/rhythm, normal heart sounds, normal peripheral pulses Gastrointestinal/Abdomen Exam: soft, normal bowel sounds, No tenderness, No mass Back Exam: normal inspection, normal range of motion, No CVA tenderness, No vertebral tenderness Extremity Exam: normal inspection, normal range of motion, pelvis stable Skin Exam: normal color, warm, dry, No rash Lymphatic Exam: No adenopathy Results - Labs Lab/Micro Results: Lab Results-Last 24 Hours 07/15/21 07/15/21 07/15/21 Range/Units 09:47 10:00 10:00 WBC 20.8 H (4.0-10.5) K/mm3 RBC 5.31 (4.1-5.4) M/mm3 Hgb 16.4 H (12.0-16.0) gm/dl Hct 45.9 (35-47) % MCV 86.4 (78-100) fl MCH 30.9 (26-32) pg MCHC 35.7 (32-36) g/dl RDW 12.1 (11.5-14.0) % Plt Count 519 H (150-450) K/mm3 MPV 11.0 (7.5-11.0) fl Segmented Neutrophils 79 H (36.0-66.0) % Lymphocytes (Manual) 16 L (24-44) % Monocytes (Manual) 5 (0.0-12.0) % Toxic Granulation 1+ Platelet Estimate INCREASED (NORMAL) RBC Morphology NORMAL Puncture Site pCO2 (35-45) mmHg pO2 (75-100) mmHg Base Excess (-2.0-2.0) O2 Saturation (94-100) g/dF ABG pH (7.35-7.45) ABG HCO3 (22-28) ABG O2 Sat (Measured) (95-100) % Jaspreet Test A-a Gradient a/A Ratio Hemoglobin Carboxyhemoglobin (0.0-6.9) % THgb Methemoglobin (1.4-1.5) % Temperature C POC O2 Flow Rate % Sodium 126 L (137-145) mmol/L Potassium 3.0 L* (3.5-5.1) mmol/L Chloride 81 L (98-107) mmol/L Carbon Dioxide 18 L (22-30) mmol/L Anion Gap 29.8 H (5-15) MEQ/L BUN 96 H (7-17) mg/dL Creatinine 3.71 H (0.52-1.04) mg/dL Estimated GFR 13.1 ML/MIN Glucose 434 H (74-106) mg/dL POC Glucometer 406 H (74 to 106) mg/dL Calcium 10.4 H (8.4-10.2) mg/dL Total Bilirubin 1.30 (0.2-1.3) mg/dL AST 41 H (14-36) U/L ALT 43 H (0-35) U/L Alkaline Phosphatase 126 (38-126) U/L Troponin I (0.000-0.034) ng/mL Serum Total Protein 9.1 H (6.3-8.2) g/dL Albumin 5.4 H (3.5-5.0) g/dL Urine Color (YELLOW) Urine Appearance (CLEAR) Urine pH (5-6) Ur Specific [place] (1.005-1.025) Urine Protein (Negative) Urine Ketones (NEGATIVE) Urine Blood (0-5) Lazarus/ul Urine Nitrite (NEGATIVE) Urine Bilirubin (NEGATIVE) Urine Urobilinogen (0-1) mg/dL Ur Leukocyte Esterase (NEGATIVE) Urine WBC (Auto) (0-5) /HPF Urine RBC (Auto) (0-2) /HPF U Hyaline Cast (Auto) (0-2) /LPF U Epithel Cells (Auto) (FEW) /HPF Urine Bacteria (Auto) (NEGATIVE) /HPF Urine Mucus (Auto) (NEGATIVE) /HPF Urine Culture Reflexed (NO) Urine Glucose (NEGATIVE) mg/dL Influenza Type A Ag (NEGATIVE) Influenza Type B Ag (NEGATIVE) RSV (PCR) (Negative) SARS-CoV-2 (PCR) (NEGATIVE) 0107/15/21 07/15/21 Range/Units 10:00 10:05 10:53 WBC (4.0-10.5) K/mm3 RBC (4.1-5.4) M/mm3 Hgb (12.0-16.0) gm/dl Hct (35-47) % MCV (78-100) fl MCH (26-32) pg MCHC (32-36) g/dl RDW (11.5-14.0) % Plt Count (150-450) K/mm3 MPV (7.5-11.0) fl Segmented Neutrophils (36.0-66.0) % Lymphocytes (Manual) (24-44) % Monocytes (Manual) (0.0-12.0) % Toxic Granulation Platelet Estimate (NORMAL) RBC Morphology Puncture Site pCO2 (35-45) mmHg pO2 (75-100) mmHg Base Excess (-2.0-2.0) O2 Saturation (94-100) g/dF ABG pH (7.35-7.45) ABG HCO3 (22-28) ABG O2 Sat (Measured) (95-100) % Jaspreet Test A-a Gradient a/A Ratio Hemoglobin Carboxyhemoglobin (0.0-6.9) % THgb Methemoglobin (1.4-1.5) % Temperature C POC O2 Flow Rate % Sodium (137-145) mmol/L Potassium (3.5-5.1) mmol/L Chloride (98-107) mmol/L Carbon Dioxide (22-30) mmol/L Anion Gap (5-15) MEQ/L BUN (7-17) mg/dL Creatinine (0.52-1.04) mg/dL Estimated GFR ML/MIN Glucose (74-106) mg/dL POC Glucometer (74 to 106) mg/dL Calcium (8.4-10.2) mg/dL Total Bilirubin (0.2-1.3) mg/dL AST (14-36) U/L ALT (0-35) U/L Alkaline Phosphatase (38-126) U/L Troponin I < 0.012 (0.000-0.034) ng/mL Serum Total Protein (6.3-8.2) g/dL Albumin (3.5-5.0) g/dL Urine Color CHRISTIANO (YELLOW) Urine Appearance CLOUDY (CLEAR) Urine pH 5.0 (5-6) Ur Specific [place] 1.016 (1.005-1.025) Urine Protein 30 (Negative) Urine Ketones NEGATIVE (NEGATIVE) Urine Blood NEGATIVE (0-5) Lazarus/ul Urine Nitrite NEGATIVE (NEGATIVE) Urine Bilirubin NEGATIVE (NEGATIVE) Urine Urobilinogen 4 (0-1) mg/dL Ur Leukocyte Esterase LARGE (NEGATIVE) Urine WBC (Auto) >100 (0-5) /HPF Urine RBC (Auto) 6-10 (0-2) /HPF U Hyaline Cast (Auto) 11-25 (0-2) /LPF U Epithel Cells (Auto) RARE (FEW) /HPF Urine Bacteria (Auto) PACKED (NEGATIVE) /HPF Urine Mucus (Auto) SLIGHT (NEGATIVE) /HPF Urine Culture Reflexed YES (NO) Urine Glucose NEGATIVE (NEGATIVE) mg/dL Influenza Type A Ag NEGATIVE (NEGATIVE) Influenza Type B Ag NEGATIVE (NEGATIVE) RSV (PCR) NEGATIVE (Negative) SARS-CoV-2 (PCR) NEGATIVE (NEGATIVE) 07/15/21 07/15/21 07/15/21 Range/Units 12:11 13:06 15:26 WBC (4.0-10.5) K/mm3 RBC (4.1-5.4) M/mm3 Hgb (12.0-16.0) gm/dl Hct (35-47) % MCV (78-100) fl MCH (26-32) pg MCHC (32-36) g/dl RDW (11.5-14.0) % Plt Count (150-450) K/mm3 MPV (7.5-11.0) fl Segmented Neutrophils (36.0-66.0) % Lymphocytes (Manual) (24-44) % Monocytes (Manual) (0.0-12.0) % Toxic Granulation Platelet Estimate (NORMAL) RBC Morphology Puncture Site LEFT RADIAL pCO2 22 L (35-45) mmHg pO2 161 H* (75-100) mmHg Base Excess -2.3 L (-2.0-2.0) O2 Saturation 96.9 (94-100) g/dF ABG pH 7.53 H (7.35-7.45) ABG HCO3 18.4 L (22-28) ABG O2 Sat (Measured) 99.2 (95-100) % Jaspreet Test YES A-a Gradient -39 a/A Ratio 1.32 Hemoglobin 15.6 Carboxyhemoglobin 1.3 (0.0-6.9) % THgb Methemoglobin 1.1 L (1.4-1.5) % Temperature 37.0 C POC O2 Flow Rate 21 % Sodium (137-145) mmol/L Potassium 2.9 L* (3.5-5.1) mmol/L Chloride (98-107) mmol/L Carbon Dioxide (22-30) mmol/L Anion Gap (5-15) MEQ/L BUN (7-17) mg/dL Creatinine (0.52-1.04) mg/dL Estimated GFR ML/MIN Glucose (74-106) mg/dL POC Glucometer 325 H (74 to 106) mg/dL Calcium (8.4-10.2) mg/dL Total Bilirubin (0.2-1.3) mg/dL AST (14-36) U/L ALT (0-35) U/L Alkaline Phosphatase (38-126) U/L Troponin I 0.012 (0.000-0.034) ng/mL Serum Total Protein (6.3-8.2) g/dL Albumin (3.5-5.0) g/dL Urine Color (YELLOW) Urine Appearance (CLEAR) Urine pH (5-6) Ur Specific [place] (1.005-1.025) Urine Protein (Negative) Urine Ketones (NEGATIVE) Urine Blood (0-5) Lazarus/ul Urine Nitrite (NEGATIVE) Urine Bilirubin (NEGATIVE) Urine Urobilinogen (0-1) mg/dL Ur Leukocyte Esterase (NEGATIVE) Urine WBC (Auto) (0-5) /HPF Urine RBC (Auto) (0-2) /HPF U Hyaline Cast (Auto) (0-2) /LPF U Epithel Cells (Auto) (FEW) /HPF Urine Bacteria (Auto) (NEGATIVE) /HPF Urine Mucus (Auto) (NEGATIVE) /HPF Urine Culture Reflexed (NO) Urine Glucose (NEGATIVE) mg/dL Influenza Type A Ag (NEGATIVE) Influenza Type B Ag (NEGATIVE) RSV (PCR) (Negative) SARS-CoV-2 (PCR) (NEGATIVE) 07/15/21 Range/Units 16:15 WBC (4.0-10.5) K/mm3 RBC (4.1-5.4) M/mm3 Hgb (12.0-16.0) gm/dl Hct (35-47) % MCV (78-100) fl MCH (26-32) pg MCHC (32-36) g/dl RDW (11.5-14.0) % Plt Count (150-450) K/mm3 MPV (7.5-11.0) fl Segmented Neutrophils (36.0-66.0) % Lymphocytes (Manual) (24-44) % Monocytes (Manual) (0.0-12.0) % Toxic Granulation Platelet Estimate (NORMAL) RBC Morphology Puncture Site pCO2 (35-45) mmHg pO2 (75-100) mmHg Base Excess (-2.0-2.0) O2 Saturation (94-100) g/dF ABG pH (7.35-7.45) ABG HCO3 (22-28) ABG O2 Sat (Measured) (95-100) % Jaspreet Test A-a Gradient a/A Ratio Hemoglobin Carboxyhemoglobin (0.0-6.9) % THgb Methemoglobin (1.4-1.5) % Temperature C POC O2 Flow Rate % Sodium (137-145) mmol/L Potassium (3.5-5.1) mmol/L Chloride (98-107) mmol/L Carbon Dioxide (22-30) mmol/L Anion Gap (5-15) MEQ/L BUN (7-17) mg/dL Creatinine (0.52-1.04) mg/dL Estimated GFR ML/MIN Glucose (74-106) mg/dL POC Glucometer (74 to 106) mg/dL Calcium (8.4-10.2) mg/dL Total Bilirubin (0.2-1.3) mg/dL AST (14-36) U/L ALT (0-35) U/L Alkaline Phosphatase (38-126) U/L Troponin I < 0.012 (0.000-0.034) ng/mL Serum Total Protein (6.3-8.2) g/dL Albumin (3.5-5.0) g/dL Urine Color (YELLOW) Urine Appearance (CLEAR) Urine pH (5-6) Ur Specific [place] (1.005-1.025) Urine Protein (Negative) Urine Ketones (NEGATIVE) Urine Blood (0-5) Lazarus/ul Urine Nitrite (NEGATIVE) Urine Bilirubin (NEGATIVE) Urine Urobilinogen (0-1) mg/dL Ur Leukocyte Esterase (NEGATIVE) Urine WBC (Auto) (0-5) /HPF Urine RBC (Auto) (0-2) /HPF U Hyaline Cast (Auto) (0-2) /LPF U Epithel Cells (Auto) (FEW) /HPF Urine Bacteria (Auto) (NEGATIVE) /HPF Urine Mucus (Auto) (NEGATIVE) /HPF Urine Culture Reflexed (NO) Urine Glucose (NEGATIVE) mg/dL Influenza Type A Ag (NEGATIVE) Influenza Type B Ag (NEGATIVE) RSV (PCR) (Negative) SARS-CoV-2 (PCR) (NEGATIVE) Assessment/Plan (1) DKA (diabetic ketoacidosis) Current Visit: Yes Status: Acute Qualifiers: Diabetes mellitus type: type 2 Diabetes mellitus complication detail: without coma Qualified Code(s): E11.10 - Type 2 diabetes mellitus with ketoacidosis without coma Assessment & Plan: Chief Complaint Diagnosis UTI, DKA, DEHYDRATION, HYPOKALEMIA, MARY JO Allergies Allergy/AdvReac Type Severity Reaction Status Date / Time metformin AdvReac Verified 07/15/21 09:44 Vital Signs (Last 24 hours) Temp Pulse Resp BP Pulse Ox 07/15/21 17:03 97.3 F 108 H 118/70 96 07/15/21 15:01 96 07/15/21 13:44 97.3 F 108 H 20 118/70 96 07/15/21 13:16 96 07/15/21 13:03 96.3 F 108 H 20 118/70 96 07/15/21 13:00 96.3 F 108 H 20 118/70 96 07/15/21 12:03 102 H 18 117/78 97 07/15/21 11:59 103 H 18 123/79 96 07/15/21 11:55 98 07/15/21 10:39 100 H 18 113/79 97 07/15/21 10:05 96 07/15/21 09:39 98.4 F 112 H 20 140/77 98 Home Medications Medication Instructions Recorded Confirmed Last Taken Type Aspirin EC 81 mg [Ecotrin 81 81 mg PO DAILY 07/15/21 07/15/21 07/14/21 History mg] Insulin Glargine,Hum.rec.anlog 35 units SQ BID 07/15/21 07/15/21 07/15/21 History [Kee Lindsay U-100] Current Medications Generic Name Dose Route Start Last Admin Trade Name Dominickq PRN Reason Stop Dose Admin Aspirin 81 mg 07/15/21 17:00 07/15/21 17:16 Aspirin 81 Mg Tablet.Ec PO 08/14/21 16:59 81 mg DAILY JESSICA Administration Cholestyramine Resin 4 gm 07/15/21 16:32 Cholestyramine Light 4 Gm Packet PO 08/14/21 16:31 DAILY PRN PRN DIARRHEA Glimepiride 4 mg 07/15/21 17:00 07/15/21 17:17 Glimepiride 2 Mg Tablet PO 08/14/21 16:59 4 mg BREAKFAST JESSICA Administration Ceftriaxone Sodium/Dextrose 1 g in 50 mls @ 100 mls/hr 07/16/21 10:00 Rocephin 1 Gm-D5w 50 Ml Bag IV 07/19/21 09:59 Q24H10 [facility] Insulin Glargine 35 unit 07/15/21 22:00 Insulin Glargine 1 Unit SQ 08/14/21 21:59 BID [facility] Insulin Human Lispro 0 unit 07/15/21 15:49 07/15/21 17:39 Insulin Lispro 1 Unit SQ 08/14/21 15:48 9 unit UD PRN Administration HYPERGLYCEMIA Morphine Sulfate 4 mg 07/15/21 13:16 Morphine Sulfate 4 Mg/Ml Injection IV 07/20/21 13:15 Q4H PRN PRN PAIN Ondansetron HCl 4 mg 07/15/21 13:16 Ondansetron Hcl 4 Mg/2 Ml Vial IV 08/14/21 13:15 Q6H PRN PRN NAUSEA/VOMITING Ondansetron HCl 4 mg 07/15/21 16:32 Zofran 4 Mg/Udtablet Orally Disintegrating PO 08/14/21 16:31 Q6H PRN PRN VOMITING Oxybutynin Chloride 20 mg 07/15/21 17:00 07/15/21 17:16 Oxybutynin Chloride Xl 5 Mg Tab PO 08/14/21 16:59 20 mg DAILY JESSICA Administration Verapamil HCl 80 mg 07/15/21 17:00 07/15/21 17:17 Verapamil Hcl 80 Mg Tablet PO 08/14/21 16:59 80 mg DAILY JESSICA Administration Discontinued Medications Generic Name Dose Route Start Last Admin Trade Name Princess PRN Reason Stop Dose Admin Glimepiride 4 mg 07/15/21 17:00 Glimepiride 2 Mg Tablet PO 08/14/21 16:59 DAILY JESSICA Sodium Chloride 1,000 mls @ 999 mls/hr 07/15/21 09:54 07/15/21 10:07 Sodium Chloride 0.9% 1000 Ml IV 07/15/21 10:54 999 mls/hr .Q1H1M STA Administration Sodium Chloride Confirm 07/15/21 10:06 Sodium Chloride 0.9% 1000 Ml Administered 07/15/21 10:07 Dose 1,000 mls @ ud .ROUTE .STK-MED ONE Ceftriaxone Sodium/Dextrose 1 g in 50 mls @ 100 mls/hr 07/16/21 10:00 Rocephin 1 Gm-D5w 50 Ml Bag IV 07/19/21 09:59 Q24H10 JESSICA Potassium Chloride 20 meq in 100 mls @ 50 mls/hr 07/15/21 11:00 07/15/21 15:21 Potassium Chloride 20 Meq In Water 100ml IV 07/15/21 14:59 Not Given Q2H JESSICA Ceftriaxone Sodium/Dextrose Confirm 07/15/21 10:56 Rocephin 1 Gm-D5w 50 Ml Bag Administered 07/15/21 10:57 Dose 1 g in 50 mls @ ud IV .STK-MED ONE Sodium Chloride 1,000 mls @ 100 mls/hr 07/15/21 12:45 07/15/21 12:41 Sodium Chloride 0.9% 1000 Ml IV 08/14/21 12:44 100 mls/hr .Q10H JESSICA Administration Potassium Chloride 20 meq in 100 mls @ 50 mls/hr 07/15/21 14:43 07/15/21 15:15 Potassium Chloride 20 Meq In Water 100ml IV 07/15/21 16:42 50 mls/hr ONCE ONE Administration Intake & Output (Last 24 hours) 07/13/21 07/14/21 07/15/21 07/16/21 11:59 11:59 11:59 11:59 Intake Total 240 Balance 240 Weight 117.7 kg 114.4 kg Microbiology Results (Last 24 hours) 07/15/21 10:05 Catherized Urine Culture - Pending Laboratory Results (Last 24 hours) 07/15/21 07/15/21 07/15/21 16:15 15:26 13:06 WBC RBC Hgb Hct MCV MCH MCHC RDW Plt Count MPV Segmented Neutrophils Lymphocytes (Manual) Monocytes (Manual) Toxic Granulation Platelet Estimate RBC Morphology Puncture Site pCO2 pO2 Base Excess O2 Saturation ABG pH ABG HCO3 ABG O2 Sat (Measured) Jaspreet Test A-a Gradient a/A Ratio Hemoglobin Carboxyhemoglobin Methemoglobin Temperature POC O2 Flow Rate Sodium Potassium Chloride Carbon Dioxide Anion Gap BUN Creatinine Estimated GFR Glucose POC Glucometer 325 H Calcium Total Bilirubin AST ALT Alkaline Phosphatase Troponin I < 0.012 0.012 Serum Total Protein Albumin Urine Color Urine Appearance Urine pH Ur Specific [place] Urine Protein Urine Ketones Urine Blood Urine Nitrite Urine Bilirubin Urine Urobilinogen Ur Leukocyte Esterase Urine WBC (Auto) Urine RBC (Auto) U Hyaline Cast (Auto) U Epithel Cells (Auto) Urine Bacteria (Auto) Urine Mucus (Auto) Urine Culture Reflexed Urine Glucose Influenza Type A Ag Influenza Type B Ag RSV (PCR) SARS-CoV-2 (PCR) 07/15/21 07/15/21 07/15/21 12:11 10:53 10:05 WBC RBC Hgb Hct MCV MCH MCHC RDW Plt Count MPV Segmented Neutrophils Lymphocytes (Manual) Monocytes (Manual) Toxic Granulation Platelet Estimate RBC Morphology Puncture Site LEFT RADIAL pCO2 22 L pO2 161 H* Base Excess -2.3 L O2 Saturation 96.9 ABG pH 7.53 H ABG HCO3 18.4 L ABG O2 Sat (Measured) 99.2 Jaspreet Test YES A-a Gradient -39 a/A Ratio 1.32 Hemoglobin 15.6 Carboxyhemoglobin 1.3 Methemoglobin 1.1 L Temperature 37.0 POC O2 Flow Rate 21 Sodium Potassium 2.9 L* Chloride Carbon Dioxide Anion Gap BUN Creatinine Estimated GFR Glucose POC Glucometer Calcium Total Bilirubin AST ALT Alkaline Phosphatase Troponin I Serum Total Protein Albumin Urine Color CHRISTIANO Urine Appearance CLOUDY Urine pH 5.0 Ur Specific [place] 1.016 Urine Protein 30 Urine Ketones NEGATIVE Urine Blood NEGATIVE Urine Nitrite NEGATIVE Urine Bilirubin NEGATIVE Urine Urobilinogen 4 Ur Leukocyte Esterase LARGE Urine WBC (Auto) >100 Urine RBC (Auto) 6-10 U Hyaline Cast (Auto) 11-25 U Epithel Cells (Auto) RARE Urine Bacteria (Auto) PACKED Urine Mucus (Auto) SLIGHT Urine Culture Reflexed YES Urine Glucose NEGATIVE Influenza Type A Ag NEGATIVE Influenza Type B Ag NEGATIVE RSV (PCR) NEGATIVE SARS-CoV-2 (PCR) NEGATIVE 07/15/21 07/15/21 07/15/21 10:00 10:00 10:00 WBC 20.8 H RBC 5.31 Hgb 16.4 H Hct 45.9 MCV 86.4 MCH 30.9 MCHC 35.7 RDW 12.1 Plt Count 519 H MPV 11.0 Segmented Neutrophils 79 H Lymphocytes (Manual) 16 L Monocytes (Manual) 5 Toxic Granulation 1+ Platelet Estimate INCREASED RBC Morphology NORMAL Puncture Site pCO2 pO2 Base Excess O2 Saturation ABG pH ABG HCO3 ABG O2 Sat (Measured) Jaspreet Test A-a Gradient a/A Ratio Hemoglobin Carboxyhemoglobin Methemoglobin Temperature POC O2 Flow Rate Sodium 126 L Potassium 3.0 L* Chloride 81 L Carbon Dioxide 18 L Anion Gap 29.8 H BUN 96 H Creatinine 3.71 H Estimated GFR 13.1 Glucose 434 H POC Glucometer Calcium 10.4 H Total Bilirubin 1.30 AST 41 H ALT 43 H Alkaline Phosphatase 126 Troponin I < 0.012 Serum Total Protein 9.1 H Albumin 5.4 H Urine Color Urine Appearance Urine pH Ur Specific [place] Urine Protein Urine Ketones Urine Blood Urine Nitrite Urine Bilirubin Urine Urobilinogen Ur Leukocyte Esterase Urine WBC (Auto) Urine RBC (Auto) U Hyaline Cast (Auto) U Epithel Cells (Auto) Urine Bacteria (Auto) Urine Mucus (Auto) Urine Culture Reflexed Urine Glucose Influenza Type A Ag Influenza Type B Ag RSV (PCR) SARS-CoV-2 (PCR) 07/15/21 09:47 WBC RBC Hgb Hct MCV MCH MCHC RDW Plt Count MPV Segmented Neutrophils Lymphocytes (Manual) Monocytes (Manual) Toxic Granulation Platelet Estimate RBC Morphology Puncture Site pCO2 pO2 Base Excess O2 Saturation ABG pH ABG HCO3 ABG O2 Sat (Measured) Jaspreet Test A-a Gradient a/A Ratio Hemoglobin Carboxyhemoglobin Methemoglobin Temperature POC O2 Flow Rate Sodium Potassium Chloride Carbon Dioxide Anion Gap BUN Creatinine Estimated GFR Glucose POC Glucometer 406 H Calcium Total Bilirubin AST ALT Alkaline Phosphatase Troponin I Serum Total Protein Albumin Urine Color Urine Appearance Urine pH Ur Specific [place] Urine Protein Urine Ketones Urine Blood Urine Nitrite Urine Bilirubin Urine Urobilinogen Ur Leukocyte Esterase Urine WBC (Auto) Urine RBC (Auto) U Hyaline Cast (Auto) U Epithel Cells (Auto) Urine Bacteria (Auto) Urine Mucus (Auto) Urine Culture Reflexed Urine Glucose Influenza Type A Ag Influenza Type B Ag RSV (PCR) SARS-CoV-2 (PCR) Orders (Last 24 hours) Category Date Time Status Bedrest ROUTINE Activity 07/15/21 13:16 Active Hot Wound [place] Production Supervisor STAT Care 07/15/21 09:55 Completed Code Status Order ROUTINE Care 07/15/21 13:16 Active EKG-ER Only STAT Care 07/15/21 09:54 Completed IV Care Q6H Care 07/15/21 13:16 Active IV Insertion STAT Care 07/15/21 09:54 Completed IV Insertion-2nd Peripheral STAT Care 07/15/21 11:23 Completed Miscellaneous Nursing Order ROUTINE Care 07/15/21 15:50 Active Neuro Checks Q4H Care 07/15/21 13:16 Active POCT Glucose Check ACHS Care 07/15/21 16:[address] in Observation ROUTINE Care 07/15/21 13:16 Active Pulse Oximetry (ED) STAT Care 07/15/21 09:54 Completed Telemetry q6h Care 07/15/21 13:16 Active Consistent Carbohydrate Diet 1800 Calorie Diet 07/15/21 Lunch Active ABG [ARTERIAL BLOOD GASES] Stat Lab 07/15/21 12:11 Completed CBC W DIFF AM.LAB Lab 07/16/21 04:00 Ordered CBC W DIFF Stat Lab 07/15/21 10:00 Completed CMP AM.LAB Lab 07/16/21 04:00 Ordered CMP Stat Lab 07/15/21 10:00 Completed CULTURE,URINE Stat Lab 07/15/21 10:05 Received Manual Differential NC Stat Lab 07/15/21 10:00 Completed POCT GLUCOSE Stat Lab 07/15/21 09:47 Completed POCT GLUCOSE Stat Lab 07/15/21 15:26 Completed Pot [Potassium] Routine Lab 07/15/21 19:15 Ordered TROPONIN Q3H Lab 07/15/21 10:00 Completed TROPONIN Q3H Lab 07/15/21 13:06 Completed TROPONIN Q3H Lab 07/15/21 16:15 Completed TROPONIN Q3H Lab 07/15/21 19:00 Ordered TROPONIN Q3H Lab 07/15/21 22:00 Ordered UA W/RFX UR CULTURE Stat Lab 07/15/21 10:05 Completed Aspirin EC 81 mg [Ecotrin 81 mg] Med 07/15/21 17:00 Active 81 mg PO DAILY Ceftriaxone 1 GM/50 ML PREMIX* [ROCEPHIN 1 Gm-D5w 50 ml Med 07/16/21 10:00 Active Bag] 1 g in 50 ml IV Q24H10 Ceftriaxone 1 GM/50 ML PREMIX* [ROCEPHIN 1 Gm-D5w 50 ml Med 07/16/21 10:00 Discontinued Bag] 1 g in 50 ml IV Q24H10 Ceftriaxone 1 GM/50 ML PREMIX* [ROCEPHIN 1 Gm-D5w 50 ml Med 07/15/21 10:56 Discontinued Bag] 1 g in 50 ml IV UD Cholestyramine Light 4 gm [QUESTRAN Light 4 GM Med 07/15/21 16:32 Active Packet] 4 gm PO DAILY PRN PRN Glimepiride 2 mg [Amaryl 2 MG] Med 07/15/21 17:00 Active 4 mg PO BREAKFAST Glimepiride 2 mg [Amaryl 2 MG] Med 07/15/21 17:00 Discontinued 4 mg PO DAILY Insulin Glargine [Lantus Insulin] Med 07/15/21 22:00 Active 35 unit SQ BID Insulin Lispro [Humalog] Med 07/15/21 15:49 Active See Dose Instructions SQ UD PRN Morphine Sulfate 4 mg Inj Med 07/15/21 13:16 Active 4 mg IV Q4H PRN PRN NaCl 0.9% 1000 ml [Sodium Chloride 0.9% 1000 ML] 1,000 Med 07/15/21 10:06 Discontinued ml .ROUTE UD NaCl 0.9% 1000 ml [Sodium Chloride 0.9% 1000 ML] 1,000 Med 07/15/21 12:45 Discontinued ml IV 100 mls/hr NaCl 0.9% 1000 ml [Sodium Chloride 0.9% 1000 ML] 1,000 Med 07/15/21 09:54 Discontinued ml IV 999 mls/hr Ondansetron HCl 4 mg/2 ml [Zofran 4 MG/2 ML VIAL] Med 07/15/21 13:16 Active 4 mg IV Q6H PRN PRN Ondansetron ODT 4 MG [Zofran Odt 4 mg] Med 07/15/21 16:32 Active 4 mg PO Q6H PRN PRN Oxybutynin Chloride Xl 5 mg [Ditropan XL 5 MG] Med 07/15/21 17:00 Active 20 mg PO DAILY Potassium Chloride 20Meq/100Ml [POTASSIUM CHLORIDE 20 Med 07/15/21 14:43 Discontinued mEq IN WATER 100ML] 20 meq in 100 ml IV ONCE Potassium Chloride 20Meq/100Ml [POTASSIUM CHLORIDE 20 Med 07/15/21 11:00 Discontinued mEq IN WATER 100ML] 20 meq in 100 ml IV Q2H Verapamil HCl 80 mg [Calan 80 mg] Med 07/15/21 17:00 Active 80 mg PO DAILY Pulse Oximetry CONTINUOUS RT 07/15/21 13:16 Completed Transfer Order Routine Transfer 07/15/21 Completed Code(s): E11.10 - TYPE 2 DIABETES MELLITUS WITH KETOACIDOSIS WITHOUT COMA (2) Acute renal injury Current Visit: Yes Status: Acute Code(s): N17.9 - ACUTE KIDNEY FAILURE, UNSPECIFIED (3) Dehydration Current Visit: Yes Status: Acute Code(s): E86.0 - DEHYDRATION (4) UTI (urinary tract infection) Current Visit: Yes Status: Acute Code(s): N39.0 - URINARY TRACT INFECTION, SITE NOT SPECIFIED
[2021-07-15] MEDS ORDERED: NON-FORMULARY ITEM (Insulin Glargine,Hum.Rec.Anlog [Basaglar Kwikpen U-100] 100 UNIT/ML In SQ SCH (22:00)
[2021-07-15] MEDS: Lantus Insulin SQ SCH (22:30)
[2021-07-16] MEDS: Sodium Chloride 0.9% 1000 ML 1,000 ML IV SCH ×2 (02:11→12:40)
[2021-07-16 05:49] LABS: Absolute Neutrophil Ct (ANC) 11.73 (1.4-6.9); Basophil (Absolute #) 0.07 (0-0.4); Eosinophil (Absolute #) 0.35 (0-0.5); Hematocrit 39.9 % (35-47); Hemoglobin 14.1 gm/dl (12.0-16.0); Lymphocyte (Absolute #) 4.17 (1.0-4.6); Lymphocytes % 23.4 % (24.0-44.0); Mean Cell Volume 87.7 fl (78-100); Mean Corpuscular Hgb Concent. 35.3 g/dl (32-36); Monocytes % 8.4 % (0.0-12.0); Neutrophil % 65.8 % (36.0-66.0); Platelet Count 393 K/mm3 (150-450); Red Blood Count 4.55 M/mm3 (4.1-5.4); Red Cell Distribution Width 12.1 % (11.5-14.0); White Blood Count 17.8 K/mm3 (4.0-10.5)
[2021-07-16 06:08] LABS: ALBUMIN 4.6 g/dL (3.5-5.0); ANION GAP 22.9 MEQ/L (5-15); BILIRUBIN,TOTAL 0.9 mg/dL (0.2-1.3); Calcium 9.1 mg/dL (8.4-10.2); Creatinine 1 2.9 mg/dL (0.52-1.04); EST GLOMERULAR FILTRATION RATE 17.4 ML/MIN; Total Protein 7.9 g/dL (6.3-8.2)
[2021-07-16 06:28] LABS: Potassium 2.4 mmol/L (3.5-5.1)
[2021-07-16] MEDS: POTASSIUM CHLORIDE 20 mEq IN WATER 100ML 20 MEQ/100 ML BAG IV SCH ×4 (07:30→19:49)
[2021-07-16] MEDS: HUMALOG SQ PRN ×4 (08:03→21:54)
[2021-07-16] MEDS: Amaryl 2 MG PO SCH (08:03)
[2021-07-16] MEDS: CALAN 80 MG PO SCH (09:35)
[2021-07-16] MEDS: Ditropan XL 5 MG PO SCH (09:35)
[2021-07-16] MEDS: Lantus Insulin SQ SCH ×2 (09:35→23:11)
[2021-07-16] MEDS: ECOTRIN 81 MG PO SCH (09:35)
[2021-07-16] MEDS: ROCEPHIN 1 Gm-D5w 50 ml Bag** 1 G/50 ML IVPB IV SCH (09:35)
[2021-07-16] MEDS ORDERED: ROCEPHIN 1 Gm-D5w 50 ml Bag** 1 G/50 ML IVPB IV SCH (10:00)
[2021-07-16] MEDS ORDERED: NON-FORMULARY ITEM (Oxybutynin Chloride [Oxybutynin Chloride Er] 10 MG Tab.Er.24) PO SCH (10:00)
--- NOTE | 2021-07-16 13:16 | PCM.NOTE ---
Date and Time: 07/16/21 1315 Subjective Assessment: felling little better - Review of Systems Constitutional: No Fever, No Chills Eyes: No Symptoms Ears, Nose, & Throat: No Symptoms Respiratory: No Cough, No Short Of Breath Cardiac: No Chest Pain, No Edema, No Syncope Abdominal/Gastrointestinal: No Abdominal Pain, No Nausea, No Vomiting, No Diarrhea Genitourinary Symptoms: No Dysuria Musculoskeletal: No Back Pain, No Neck Pain Skin: No Rash Neurological: No Dizziness, No Focal Weakness, No Sensory Changes Psychological: No Symptoms Endocrine: No Symptoms Hematologic/Lymphatic: No Symptoms Immunological/Allergic: No Symptoms Objective Exam General Appearance: no apparent distress, alert Neurologic Exam: alert, oriented x 3, cooperative, normal mood/affect, nml cerebellar function, sensation nml, No motor deficits Skin Exam: normal color, warm, dry Eye Exam: PERRL, EOMI, eyes nml inspection Ears, Nose, Throat Exam: normal ENT inspection, pharynx normal, moist mucous membranes Neck Exam: normal inspection, non-tender, supple, full range of motion Respiratory Exam: normal breath sounds, lungs clear, No respiratory distress Cardiovascular Exam: regular rate/rhythm, normal heart sounds Gastrointestinal/Abdomen Exam: soft, No tenderness, No mass Extremity Exam: normal inspection, normal range of motion Back Exam: normal inspection, normal range of motion, No CVA tenderness, No vertebral tenderness Pelvic Exam: deferred Rectal Exam: deferred OBJECTIVE DATA Vital Signs: Vital Signs - 24 hr Temp Pulse Resp BP Pulse Ox 07/16/21 11:00 96.5 F 87 24 119/57 96 07/16/21 07:00 96.1 F 90 16 108/58 96 07/16/21 03:00 97.0 F 88 20 98/49 93 L 07/16/21 01:20 98 07/15/21 23:52 96.5 F 99 H 20 115/63 94 L 07/15/21 20:48 97.1 F 97 H 20 118/61 97 07/15/21 17:03 97.3 F 108 H 118/70 96 07/15/21 15:01 96 07/15/21 13:44 97.3 F 108 H 20 118/70 96 07/15/21 13:16 96 Pain Assessment - Last Documented Pain Intensity 0 Intake and Output: Intake & Output 01/16/07/15/21 07/16/21 07/17/21 11:59 11:59 11:59 11:59 Intake Total 2157 480 Output Total 300 Balance 1857 480 Weight 117.7 kg 114.4 kg Lab Results: Lab Results-Last 24 Hours 07/15/21 07/15/21 07/15/21 Range/Units 13:06 15:26 16:15 WBC (4.0-10.5) K/mm3 RBC (4.1-5.4) M/mm3 Hgb (12.0-16.0) gm/dl Hct (35-47) % MCV (78-100) fl MCH (26-32) pg MCHC (32-36) g/dl RDW (11.5-14.0) % Plt Count (150-450) K/mm3 MPV (7.5-11.0) fl Gran % (36.0-66.0) % Eos # (Auto) (0-0.5) Absolute Lymphs (auto) (1.0-4.6) Absolute Monos (auto) (0.0-1.3) Lymphocytes % (24.0-44.0) % Monocytes % (0.0-12.0) % Eosinophils % (0.00-5.0) % Basophils % (0.0-0.4) % Absolute Granulocytes (1.4-6.9) Basophils # (0-0.4) Sodium (137-145) mmol/L Potassium (3.5-5.1) mmol/L Chloride (98-107) mmol/L Carbon Dioxide (22-30) mmol/L Anion Gap (5-15) MEQ/L BUN (7-17) mg/dL Creatinine (0.52-1.04) mg/dL Estimated GFR ML/MIN Glucose (74-106) mg/dL POC Glucometer 325 H (74 to 106) mg/dL Calcium (8.4-10.2) mg/dL Magnesium (1.6-2.3) mg/dL Total Bilirubin (0.2-1.3) mg/dL AST (14-36) U/L ALT (0-35) U/L Alkaline Phosphatase (38-126) U/L Troponin I 0.012 < 0.012 (0.000-0.034) ng/mL Serum Total Protein (6.3-8.2) g/dL Albumin (3.5-5.0) g/dL 07/15/21 07/15/21 07/16/21 Range/Units 19:45 21:41 04:00 WBC 17.8 H (4.0-10.5) K/mm3 RBC 4.55 (4.1-5.4) M/mm3 Hgb 14.1 (12.0-16.0) gm/dl Hct 39.9 (35-47) % MCV 87.7 (78-100) fl MCH 31.0 (26-32) pg MCHC 35.3 (32-36) g/dl RDW 12.1 (11.5-14.0) % Plt Count 393 (150-450) K/mm3 MPV 11.0 (7.5-11.0) fl Gran % 65.8 (36.0-66.0) % Eos # (Auto) 0.35 (0-0.5) Absolute Lymphs (auto) 4.17 (1.0-4.6) Absolute Monos (auto) 1.50 H (0.0-1.3) Lymphocytes % 23.4 L (24.0-44.0) % Monocytes % 8.4 (0.0-12.0) % Eosinophils % 2.0 (0.00-5.0) % Basophils % 0.4 (0.0-0.4) % Absolute Granulocytes 11.73 H (1.4-6.9) Basophils # 0.07 (0-0.4) Sodium (137-145) mmol/L Potassium 2.6 L* (3.5-5.1) mmol/L Chloride (98-107) mmol/L Carbon Dioxide (22-30) mmol/L Anion Gap (5-15) MEQ/L BUN (7-17) mg/dL Creatinine (0.52-1.04) mg/dL Estimated GFR ML/MIN Glucose (74-106) mg/dL POC Glucometer 322 H (74 to 106) mg/dL Calcium (8.4-10.2) mg/dL Magnesium (1.6-2.3) mg/dL Total Bilirubin (0.2-1.3) mg/dL AST (14-36) U/L ALT (0-35) U/L Alkaline Phosphatase (38-126) U/L Troponin I (0.000-0.034) ng/mL Serum Total Protein (6.3-8.2) g/dL Albumin (3.5-5.0) g/dL 07/16/21 07/16/21 07/16/21 Range/Units 05:00 05:00 07:07 WBC (4.0-10.5) K/mm3 RBC (4.1-5.4) M/mm3 Hgb (12.0-16.0) gm/dl Hct (35-47) % MCV (78-100) fl MCH (26-32) pg MCHC (32-36) g/dl RDW (11.5-14.0) % Plt Count (150-450) K/mm3 MPV (7.5-11.0) fl Gran % (36.0-66.0) % Eos # (Auto) (0-0.5) Absolute Lymphs (auto) (1.0-4.6) Absolute Monos (auto) (0.0-1.3) Lymphocytes % (24.0-44.0) % Monocytes % (0.0-12.0) % Eosinophils % (0.00-5.0) % Basophils % (0.0-0.4) % Absolute Granulocytes (1.4-6.9) Basophils # (0-0.4) Sodium 127 L (137-145) mmol/L Potassium 2.4 L* (3.5-5.1) mmol/L Chloride 88 L (98-107) mmol/L Carbon Dioxide 19 L (22-30) mmol/L Anion Gap 22.9 H (5-15) MEQ/L BUN 104 H (7-17) mg/dL Creatinine 2.90 H (0.52-1.04) mg/dL Estimated GFR 17.4 ML/MIN Glucose 257 H (74-106) mg/dL POC Glucometer 267 H (74 to 106) mg/dL Calcium 9.1 (8.4-10.2) mg/dL Magnesium 2.9 H (1.6-2.3) mg/dL Total Bilirubin 0.90 (0.2-1.3) mg/dL AST 30 (14-36) U/L ALT 31 (0-35) U/L Alkaline Phosphatase 96 (38-126) U/L Troponin I (0.000-0.034) ng/mL Serum Total Protein 7.9 (6.3-8.2) g/dL Albumin 4.6 (3.5-5.0) g/dL 07/16/21 Range/Units 11:37 WBC (4.0-10.5) K/mm3 RBC (4.1-5.4) M/mm3 Hgb (12.0-16.0) gm/dl Hct (35-47) % MCV (78-100) fl MCH (26-32) pg MCHC (32-36) g/dl RDW (11.5-14.0) % Plt Count (150-450) K/mm3 MPV (7.5-11.0) fl Gran % (36.0-66.0) % Eos # (Auto) (0-0.5) Absolute Lymphs (auto) (1.0-4.6) Absolute Monos (auto) (0.0-1.3) Lymphocytes % (24.0-44.0) % Monocytes % (0.0-12.0) % Eosinophils % (0.00-5.0) % Basophils % (0.0-0.4) % Absolute Granulocytes (1.4-6.9) Basophils # (0-0.4) Sodium (137-145) mmol/L Potassium (3.5-5.1) mmol/L Chloride (98-107) mmol/L Carbon Dioxide (22-30) mmol/L Anion Gap (5-15) MEQ/L BUN (7-17) mg/dL Creatinine (0.52-1.04) mg/dL Estimated GFR ML/MIN Glucose (74-106) mg/dL POC Glucometer 336 H (74 to 106) mg/dL Calcium (8.4-10.2) mg/dL Magnesium (1.6-2.3) mg/dL Total Bilirubin (0.2-1.3) mg/dL AST (14-36) U/L ALT (0-35) U/L Alkaline Phosphatase (38-126) U/L Troponin I (0.000-0.034) ng/mL Serum Total Protein (6.3-8.2) g/dL Albumin (3.5-5.0) g/dL Assessment/Plan (1) Hypokalemia Current Visit: Yes Status: Acute Assessment & Plan: Chief Complaint Diagnosis weakness for 1-2 days Allergies Allergy/AdvReac Type Severity Reaction Status Date / Time metformin AdvReac Verified 07/15/21 09:44 Vital Signs (Last 24 hours) Temp Pulse Resp BP Pulse Ox 07/16/21 11:00 96.5 F 87 24 119/57 96 07/16/21 07:00 96.1 F 90 16 108/58 96 07/16/21 03:00 97.0 F 88 20 98/49 93 L 07/16/21 01:20 98 07/15/21 23:52 96.5 F 99 H 20 115/63 94 L 07/15/21 20:48 97.1 F 97 H 20 118/61 97 07/15/21 17:03 97.3 F 108 H 118/70 96 07/15/21 15:01 96 07/15/21 13:44 97.3 F 108 H 20 118/70 96 Home Medications Medication Instructions Recorded Confirmed Last Taken Type Aspirin EC 81 mg [Ecotrin 81 81 mg PO DAILY 07/15/21 07/15/21 07/14/21 History mg] Insulin Glargine,Hum.rec.anlog 35 units SQ BID 07/15/21 07/15/21 07/15/21 Histo ry [Basaglar Yuridiapen U-100] Current Medications Generic Name Dose Route Start Last Admin Trade Name Freq PRN Reason Stop Dose Admin Aspirin 81 mg 07/15/21 17:00 07/16/21 09:35 Aspirin 81 Mg Tablet.Ec PO 08/14/21 16:59 81 mg DAILY JESSICA Administration Cholestyramine Resin 4 gm 07/15/21 16:32 Cholestyramine Light 4 Gm Packet PO 08/14/21 16:31 DAILY PRN PRN DIARRHEA Glimepiride 4 mg 07/15/21 17:00 07/16/21 08:03 Glimepiride 2 Mg Tablet PO 08/14/21 16:59 4 mg BREAKFAST JESSICA Administration Ceftriaxone Sodium/Dextrose 1 g in 50 mls @ 100 mls/hr 07/16/21 10:00 07/16/21 09:35 Rocephin 1 Gm-D5w 50 Ml Bag IV 07/19/21 09:59 100 mls/hr Q24H10 JESSICA Administration Sodium Chloride 1,000 mls @ 100 mls/hr 07/15/21 19:15 07/16/21 12:40 Sodium Chloride 0.9% 1000 Ml IV 08/14/21 19:14 100 mls/hr .Q10H JESSICA Administration Insulin Glargine 35 unit 07/15/21 22:00 07/16/21 09:35 Insulin Glargine 1 Unit SQ 08/14/21 21:59 35 unit BID JESSICA Administration Insulin Human Lispro 0 unit 07/15/21 15:49 07/16/21 12:37 Insulin Lispro 1 Unit SQ 08/14/21 15:48 9 unit UD PRN Administration HYPERGLYCEMIA Morphine Sulfate 4 mg 07/15/21 13:16 Morphine Sulfate 4 Mg/Ml Injection IV 07/20/21 13:15 Q4H PRN PRN PAIN Ondansetron HCl 4 mg 07/15/21 13:16 Ondansetron Hcl 4 Mg/2 Ml Vial IV 08/14/21 13:15 Q6H PRN PRN NAUSEA/VOMITING Ondansetron HCl 4 mg 07/15/21 16:32 Zofran 4 Mg/Udtablet Orally Disintegrating PO 08/14/21 16:31 Q6H PRN PRN VOMITING Oxybutynin Chloride 20 mg 07/15/21 17:00 07/16/21 09:35 Oxybutynin Chloride Xl 5 Mg Tab PO 08/14/21 16:59 20 mg DAILY JESSICA Administration Verapamil HCl 80 mg 07/15/21 17:00 07/16/21 09:35 Verapamil Hcl 80 Mg Tablet PO 08/14/21 16:59 80 mg DAILY JESSICA Administration Discontinued Medications Generic Name Dose Route Start Last Admin Trade Name Freq PRN Reason Stop Dose Admin Glimepiride 4 mg 07/15/21 17:00 Glimepiride 2 Mg Tablet PO 08/14/21 16:59 DAILY JESSICA Sodium Chloride 1,000 mls @ 999 mls/hr 07/15/21 09:54 07/15/21 10:07 Sodium Chloride 0.9% 1000 Ml IV 07/15/21 10:54 999 mls/hr .Q1H1M STA Administration Sodium Chloride Confirm 07/15/21 10:06 Sodium Chloride 0.9% 1000 Ml Administered 07/15/21 10:07 Dose 1,000 mls @ ud .ROUTE .STK-MED ONE Ceftriaxone Sodium/Dextrose 1 g in 50 mls @ 100 mls/hr 07/16/21 10:00 Rocephin 1 Gm-D5w 50 Ml Bag IV 07/19/21 09:59 Q24H10 JESSICA Potassium Chloride 20 meq in 100 mls @ 50 mls/hr 07/15/21 11:00 07/15/21 15:21 Potassium Chloride 20 Meq In Water 100ml IV 07/15/21 14:59 Not Given Q2H JESSICA Ceftriaxone Sodium/Dextrose Confirm 07/15/21 10:56 Rocephin 1 Gm-D5w 50 Ml Bag Administered 07/15/21 10:57 Dose 1 g in 50 mls @ ud IV .STK-MED ONE Sodium Chloride 1,000 mls @ 100 mls/hr 07/15/21 12:45 07/15/21 12:41 Sodium Chloride 0.9% 1000 Ml IV 08/14/21 12:44 100 mls/hr .Q10H JESSICA Administration Potassium Chloride 20 meq in 100 mls @ 50 mls/hr 07/15/21 14:43 07/15/21 15:15 Potassium Chloride 20 Meq In Water 100ml IV 07/15/21 16:42 50 mls/hr ONCE ONE Administration Potassium Chloride 20 meq in 100 mls @ 50 mls/hr 07/15/21 21:00 07/15/21 23:33 Potassium Chloride 20 Meq In Water 100ml IV 07/16/21 00:59 50 mls/hr Q2H JESSICA Administration Potassium Chloride 20 meq in 100 mls @ 50 mls/hr 07/16/21 06:45 07/16/21 10:31 Potassium Chloride 20 Meq In Water 100ml IV 07/16/21 10:44 50 mls/hr Q2H JESSICA Administration Ceftriaxone Sodium/Dextrose 1 g in 50 mls @ 100 mls/hr 07/15/21 10:56 10:56 Rocephin 1 Gm-D5w 50 Ml Bag IV 07/15/21 11:25 100 mls/hr STAT ONE Administration Intake & Output (Last 24 hours) 07/14/21 07/15/21 07/16/21 07/17/21 11:59 11:59 11:59 11:59 Intake Total 2157 480 Output Total 300 Balance 1857 480 Weight 117.7 kg 114.4 kg Microbiology Results (Last 24 hours) 07/15/21 10:05 Catherized Urine Culture - Preliminary GRAM NEGATIVE ID AND SENSITIVITY PENDING Laboratory Results (Last 24 hours) 07/16/21 07/16/21 07/16/21 11:37 07:07 05:00 WBC RBC Hgb Hct MCV MCH MCHC RDW Plt Count MPV Gran % Eos # (Auto) Absolute Lymphs (auto) Absolute Monos (auto) Lymphocytes % Monocytes % Eosinophils % Basophils % Absolute Granulocytes Basophils # Sodium Potassium Chloride Carbon Dioxide Anion Gap BUN Creatinine Estimated GFR Glucose POC Glucometer 336 H 267 H Calcium Magnesium 2.9 H Total Bilirubin AST ALT Alkaline Phosphatase Troponin I Serum Total Protein Albumin 07/16/21 07/16/21 07/15/21 05:00 04:00 21:41 WBC 17.8 H RBC 4.55 Hgb 14.1 Hct 39.9 MCV 87.7 MCH 31.0 MCHC 35.3 RDW 12.1 Plt Count 393 MPV 11.0 Gran % 65.8 Eos # (Auto) 0.35 Absolute Lymphs (auto) 4.17 Absolute Monos (auto) 1.50 H Lymphocytes % 23.4 L Monocytes % 8.4 Eosinophils % 2.0 Basophils % 0.4 Absolute Granulocytes 11.73 H Basophils # 0.07 Sodium 127 L Potassium 2.4 L* Chloride 88 L Carbon Dioxide 19 L Anion Gap 22.9 H BUN 104 H Creatinine 2.90 H Estimated GFR 17.4 Glucose 257 H POC Glucometer 322 H Calcium 9.1 Magnesium Total Bilirubin 0.90 AST 30 ALT 31 Alkaline Phosphatase 96 Troponin I Serum Total Protein 7.9 Albumin 4.6 07/15/21 07/15/21 07/15/21 19:45 16:15 15:26 WBC RBC Hgb Hct MCV MCH MCHC RDW Plt Count MPV Gran % Eos # (Auto) Absolute Lymphs (auto) Absolute Monos (auto) Lymphocytes % Monocytes % Eosinophils % Basophils % Absolute Granulocytes Basophils # Sodium Potassium 2.6 L* Chloride Carbon Dioxide Anion Gap BUN Creatinine Estimated GFR Glucose POC Glucometer 325 H Calcium Magnesium Total Bilirubin AST ALT Alkaline Phosphatase Troponin I < 0.012 Serum Total Protein Albumin 07/15/21 13:06 WBC RBC Hgb Hct MCV MCH MCHC RDW Plt Count MPV Gran % Eos # (Auto) Absolute Lymphs (auto) Absolute Monos (auto) Lymphocytes % Monocytes % Eosinophils % Basophils % Absolute Granulocytes Basophils # Sodium Potassium Chloride Carbon Dioxide Anion Gap BUN Creatinine Estimated GFR Glucose POC Glucometer Calcium Magnesium Total Bilirubin AST ALT Alkaline Phosphatase Troponin I 0.012 Serum Total Protein Albumin Orders (Last 24 hours) Category Date Time Status Bedrest ROUTINE Activity 07/15/21 13:16 Active Code Status Order ROUTINE Care 07/15/21 13:16 Active IV Care Q6H Care 07/15/21 13:16 Active Miscellaneous Nursing Order ROUTINE Care 07/15/21 15:50 Active Neuro Checks Q4H Care 07/15/21 13:16 Active Order K Level 2 hours post-inf 2 HRS POST K-INFUSED Care 07/16/21 06:36 Active POCT Glucose Check ACHS Care 07/15/21 16:[address] in Observation ROUTINE Care 07/15/21 13:16 Active Telemetry q4h Care 07/16/21 06:36 Completed Telemetry q6h Care 07/15/21 13:16 Active CBC W DIFF AM.LAB Lab 07/16/21 04:00 Completed CMP AM.LAB Lab 07/16/21 05:00 Completed HEMOGLOBIN A1C Urgent Lab 07/16/21 12:00 Ordered MAGNESIUM AM.LAB Lab 07/16/21 05:00 Completed POCT GLUCOSE Stat Lab 07/15/21 15:26 Completed POCT GLUCOSE Stat Lab 07/15/21 21:41 Completed POCT GLUCOSE Stat Lab 07/16/21 07:07 Completed POCT GLUCOSE Stat Lab 07/16/21 11:37 Completed Pot [Potassium] Routine Lab 07/15/21 19:45 Completed TROPONIN Q3H Lab 07/15/21 13:06 Completed TROPONIN Q3H Lab 07/15/21 16:15 Completed Aspirin EC 81 mg [Ecotrin 81 mg] Med 07/15/21 17:00 Active 81 mg PO DAILY Ceftriaxone 1 GM/50 ML PREMIX* [ROCEPHIN 1 Gm-D5w 50 ml Med 07/16/21 10:00 Active Bag] 1 g in 50 ml IV Q24H10 Ceftriaxone 1 GM/50 ML PREMIX* [ROCEPHIN 1 Gm-D5w 50 ml Med 07/16/21 10:00 Discontinued Bag] 1 g in 50 ml IV Q24H10 Cholestyramine Light 4 gm [QUESTRAN Light 4 GM Med 07/15/21 16:32 Active Packet] 4 gm PO DAILY PRN PRN Glimepiride 2 mg [Amaryl 2 MG] Med 07/15/21 17:00 Active 4 mg PO BREAKFAST Glimepiride 2 mg [Amaryl 2 MG] Med 07/15/21 17:00 Discontinued 4 mg PO DAILY Insulin Glargine [Lantus Insulin] Med 07/15/21 22:00 Active 35 unit SQ BID Insulin Lispro [Humalog] Med 07/15/21 15:49 Active See Dose Instructions SQ UD PRN Morphine Sulfate 4 mg Inj Med 07/15/21 13:16 Active 4 mg IV Q4H PRN PRN NaCl 0.9% 1000 ml [Sodium Chloride 0.9% 1000 ML] 1,000 Med 07/15/21 12:45 Discontinued ml IV 100 mls/hr NaCl 0.9% 1000 ml [Sodium Chloride 0.9% 1000 ML] 1,000 Med 07/15/21 19:15 Active ml IV 100 mls/hr Ondansetron HCl 4 mg/2 ml [Zofran 4 MG/2 ML VIAL] [facility] 07/15/21 13:16 Active 4 mg IV Q6H PRN PRN Ondansetron ODT 4 MG [Zofran Odt 4 mg] Med 07/15/21 16:32 Active 4 mg PO Q6H PRN PRN Oxybutynin Chloride Xl 5 mg [Ditropan XL 5 MG] Med 07/15/21 17:00 Active 20 mg PO DAILY Potassium Chloride 20Meq/100Ml [POTASSIUM CHLORIDE 20 [facility] 07/15/21 14:43 Discontinued mEq IN WATER 100ML] 20 meq in 100 ml IV ONCE Potassium Chloride 20Meq/100Ml [POTASSIUM CHLORIDE 20 Med 07/15/21 21:00 Discontinued mEq IN WATER 100ML] 20 meq in 100 ml IV Q2H Potassium Chloride 20Meq/100Ml [POTASSIUM CHLORIDE 20 [facility] 07/16/21 06:45 Discontinued mEq IN WATER 100ML] 20 meq in 100 ml IV Q2H Verapamil HCl 80 mg [Calan 80 mg] Med 07/15/21 17:00 Active 80 mg PO DAILY Pulse Oximetry CONTINUOUS RT 07/15/21 13:16 Completed Patient Care Notes (Last 24 hours) 07/16/21 06:37 Nursing Note by Carla Martinez Repeat potassium level this am after receiving 40 meq rider last night was 2.4. Dr. Joseph notified of critical potassium level and order given for another 40meq potassium rider to be given. Initialized on 07/16/21 06:37 - END OF NOTE 07/16/21 00:46 Nursing Note by Liz Bowden AT [address]SE [address] JOSEPH D/T PATIENT CRITICAL POTASSIUM OF 2.6. HE ORDERED 40MEQ K RIDER AND REPEAT LABS IN THE AM. ALL ORDERS ENTERED. WILL CONTINUE TO MONITOR. Initialized on 07/16/21 00:46 - END OF NOTE Code(s): E87.6 - HYPOKALEMIA (2) DKA (diabetic ketoacidosis) Current Visit: Yes Status: Acute Qualifiers: Diabetes mellitus type: type 2 Diabetes mellitus complication detail: without coma Qualified Code(s): E11.10 - Type 2 diabetes mellitus with ketoacidosis without coma Code(s): E11.10 - TYPE 2 DIABETES MELLITUS WITH KETOACIDOSIS WITHOUT COMA (3) Acute renal injury Current Visit: Yes Status: Acute Code(s): N17.9 - ACUTE KIDNEY FAILURE, UNSPECIFIED (4) Dehydration Current Visit: Yes Status: Acute Code(s): E86.0 - DEHYDRATION (5) UTI (urinary tract infection) Current Visit: Yes Status: Acute Qualifiers: Urinary tract infection type: acute pyelonephritis Qualified Code(s): N10 - Acute pyelonephritis Code(s): N39.0 - URINARY TRACT INFECTION, SITE NOT SPECIFIED
[2021-07-17] MEDS: POTASSIUM CHLORIDE 20 mEq IN WATER 100ML 20 MEQ/100 ML BAG IV SCH ×2 (02:39→05:15)
[2021-07-17] MEDS: Sodium Chloride 0.9% 1000 ML 1,000 ML IV SCH ×2 (08:05→18:39)
[2021-07-17] MEDS: Amaryl 2 MG PO SCH (08:05)
[2021-07-17] MEDS ORDERED: Magnesium 1 Gm / 100 Ml D5W*** 100 ML IV ONE (09:30)
[2021-07-17] MEDS: Ditropan XL 5 MG PO SCH (09:44)
[2021-07-17] MEDS: Lantus Insulin SQ SCH ×2 (09:45→21:13)
[2021-07-17] MEDS: ECOTRIN 81 MG PO SCH (09:45)
[2021-07-17] MEDS: CALAN 80 MG PO SCH (09:45)
[2021-07-17] MEDS: HUMALOG SQ PRN ×4 (09:46→21:35)
[2021-07-17] MEDS: K-LYTE 25 MEQ PO SCH ×2 (11:00→21:12)
[2021-07-17] MEDS: ROCEPHIN 1 Gm-D5w 50 ml Bag** 1 G/50 ML IVPB IV SCH (11:10)
--- NOTE | 2021-07-17 14:07 | PCM.NOTE ---
Date and Time: 07/17/21 1405 Subjective Assessment: potassium is still low - Review of Systems Constitutional: No Fever, No Chills Eyes: No Symptoms Ears, Nose, & Throat: No Symptoms Respiratory: No Cough, No Short Of Breath Cardiac: No Chest Pain, No Edema, No Syncope Abdominal/Gastrointestinal: No Abdominal Pain, No Nausea, No Vomiting, No Diarrhea Genitourinary Symptoms: No Dysuria Musculoskeletal: No Back Pain, No Neck Pain Skin: No Rash Neurological: No Dizziness, No Focal Weakness, No Sensory Changes Psychological: No Symptoms Endocrine: No Symptoms Hematologic/Lymphatic: No Symptoms Immunological/Allergic: No Symptoms Objective Exam General Appearance: no apparent distress, alert Neurologic Exam: alert, oriented x 3, cooperative, normal mood/affect, nml cerebellar function, sensation nml, No motor deficits Skin Exam: normal color, warm, dry Eye Exam: PERRL, EOMI, eyes nml inspection Ears, Nose, Throat Exam: normal ENT inspection, pharynx normal, moist mucous membranes Neck Exam: normal inspection, non-tender, supple, full range of motion Respiratory Exam: normal breath sounds, lungs clear, No respiratory distress Cardiovascular Exam: regular rate/rhythm, normal heart sounds Gastrointestinal/Abdomen Exam: soft, No tenderness, No mass Extremity Exam: normal inspection, normal range of motion Back Exam: normal inspection, normal range of motion, No CVA tenderness, No vertebral tenderness Pelvic Exam: deferred Rectal Exam: deferred OBJECTIVE DATA Vital Signs: Vital Signs - 24 hr Temp Pulse Resp BP Pulse Ox 07/17/21 11:00 97.8 F 92 H 18 135/60 95 07/17/21 07:00 98.0 F 87 18 122/63 97 07/17/21 03:00 97.6 F 68 18 112/56 97 07/16/21 23:00 98.0 F 86 20 100/50 97 07/16/21 19:00 97.9 F 93 H 18 121/58 99 07/16/21 15:00 96.8 F 94 H 19 114/67 92 L Pain Assessment - Last Documented Pain Intensity 0 Intake and Output: Intake & Output 07/15/21 07/16/21 07/17/21 07/18/21 11:59 11:59 11:59 11:59 Intake Total 3641 2983 280 Output Total 300 2600 300 Balance 7934 167 -20 Weight 117.7 kg 114.4 kg Lab Results: Lab Results-Last 24 Hours 07/16/21 07/16/21 07/16/21 Range/Units 05:00 16:09 16:55 Potassium 2.6 L* (3.5-5.1) mmol/L POC Glucometer 278 H (74 to 106) mg/dL Hemoglobin A1c 10.83 H (4.5-6.0) % 07/16/21 07/17/21 07/17/21 Range/Units 21:38 00:30 06:57 Potassium 2.5 L* (3.5-5.1) mmol/L POC Glucometer 302 H 220 H (74 to 106) mg/dL Hemoglobin A1c (4.5-6.0) % 07/17/21 07/17/21 Range/Units 09:48 11:17 Potassium 3.2 L D (3.5-5.1) mmol/L POC Glucometer 381 H (74 to 106) mg/dL Hemoglobin A1c (4.5-6.0) % Multi-Disciplinary Progress Notes: Multi-Disciplinary Progress Notes 07/17/21 13:01 Case Management Note by Jackie Gonzalez PATIENT CONTINUES TO DENY ANY NEW NEEDS REGARDING DC AT THIS TIME. 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 FUNCTIONING AT TIME OF DC Initialized on 07/17/21 13:01 - END OF NOTE Assessment/Plan (1) UTI (urinary tract infection) Current Visit: Yes Status: Acute Qualifiers: Urinary tract infection type: acute pyelonephritis Qualified Code(s): N10 - Acute pyelonephritis Code(s): N39.0 - URINARY TRACT INFECTION, SITE NOT SPECIFIED (2) Hypokalemia Current Visit: Yes Status: Acute Assessment & Plan: Chief Complaint Diagnosis weakness for 1-2 days Allergies Allergy/AdvReac Type Severity Reaction Status Date / Time metformin AdvReac Verified 07/15/21 09:44 Vital Signs (Last 24 hours) Temp Pulse Resp BP Pulse Ox 07/17/21 11:00 97.8 F 92 H 18 135/60 95 07/17/21 07:00 98.0 F 87 18 122/63 97 07/17/21 03:00 97.6 F 68 18 112/56 97 07/16/21 23:00 98.0 F 86 20 100/50 97 07/16/21 19:00 97.9 F 93 H 18 121/58 99 07/16/21 15:00 96.8 F 94 H 19 114/67 92 L Home Medications Medication Instructions Recorded Confirmed Last Taken Type Aspirin EC 81 mg [Ecotrin 81 81 mg PO DAILY 07/15/21 07/15/21 07/14/21 History mg] Insulin Glargine,Hum.rec.anlog 35 units SQ BID 07/15/21 07/15/21 07/15/21 History [Noelagljose manuel Shitracy U-100] Current Medications Generic Name Dose Route Start Last Admin Trade Name Freq PRN Reason Stop Dose Admin Aspirin 81 mg 07/15/21 17:00 07/17/21 09:45 Aspirin 81 Mg Tablet.Ec PO 08/14/21 16:59 81 mg DAILY JESSICA Administration Cholestyramine Resin 4 gm 07/15/21 16:32 Cholestyramine Light 4 Gm Packet PO 08/14/21 16:31 DAILY PRN PRN DIARRHEA Glimepiride 4 mg 07/15/21 17:00 07/17/21 08:05 Glimepiride 2 Mg Tablet PO 08/14/21 16:59 4 mg BREAKFAST JESSICA Administration Ceftriaxone Sodium/Dextrose 1 g in 50 mls @ 100 mls/hr 07/16/21 10:00 07/17/21 11:10 Rocephin 1 Gm-D5w 50 Ml Bag IV 07/19/21 09:59 100 mls/hr Q24H10 JESSICA Administration Sodium Chloride 1,000 mls @ 100 mls/hr 07/15/21 19:15 07/17/21 08:05 Sodium Chloride 0.9% 1000 Ml IV 08/14/21 19:14 100 mls/hr .Q10H JESSICA Administration Insulin Glargine 35 unit 07/15/21 22:00 07/17/21 09:45 Insulin Glargine 1 Unit SQ 08/14/21 21:59 35 unit BID JESSICA Administration Insulin Human Lispro 0 unit 07/15/21 15:49 07/17/21 12:35 Insulin Lispro 1 Unit SQ 08/14/21 15:48 11 unit UD PRN Administration HYPERGLYCEMIA Morphine Sulfate 4 mg 07/15/21 13:16 Morphine Sulfate 4 Mg/Ml Injection IV 07/20/21 13:15 Q4H PRN PRN PAIN Ondansetron HCl 4 mg 07/15/21 13:16 Ondansetron Hcl 4 Mg/2 Ml Vial IV 08/14/21 13:15 Q6H PRN PRN NAUSEA/VOMITING Ondansetron HCl 4 mg 07/15/21 16:32 Zofran 4 Mg/Udtablet Orally Disintegrating PO 08/14/21 16:31 Q6H PRN PRN VOMITING Oxybutynin Chloride 20 mg 07/15/21 17:00 07/17/21 09:44 Oxybutynin Chloride Xl 5 Mg Tab PO 08/14/21 16:59 20 mg DAILY JESSICA Administration Potassium Bicarbonate 50 meq 07/17/21 10:00 07/17/21 11:00 Potassium Bicarbonate 25 Meq Tab PO 08/16/21 09:59 50 meq BID JESSICA Administration Verapamil HCl 80 mg 07/15/21 17:00 07/17/21 09:45 Verapamil Hcl 80 Mg Tablet PO 08/14/21 16:59 80 mg DAILY JESSICA Administration Discontinued Medications Generic Name Dose Route Start Last Admin Trade Name Freq PRN Reason Stop Dose Admin Glimepiride 4 mg 07/15/21 17:00 Glimepiride 2 Mg Tablet PO 08/14/21 16:59 DAILY JESSICA Sodium Chloride 1,000 mls @ 999 mls/hr 07/15/21 09:54 07/15/21 10:07 Sodium Chloride 0.9% 1000 Ml IV 07/15/21 10:54 999 mls/hr .Q1H1M STA Administration Sodium Chloride Confirm 07/15/21 10:06 Sodium Chloride 0.9% 1000 Ml Administered 07/15/21 10:07 Dose 1,000 mls @ ud .ROUTE .STK-MED ONE Ceftriaxone Sodium/Dextrose 1 g in 50 mls @ 100 mls/hr 07/16/21 10:00 Rocephin 1 Gm-D5w 50 Ml Bag IV 07/19/21 09:59 Q24H10 JESSICA Potassium Chloride 20 meq in 100 mls @ 50 mls/hr 07/15/21 11:00 07/15/21 15:21 Potassium Chloride 20 Meq In Water 100ml IV 07/15/21 14:59 Not Given Q2H JESSICA Ceftriaxone Sodium/Dextrose Confirm 07/15/21 10:56 Rocephin 1 Gm-D5w 50 Ml Bag Administered 07/15/21 10:57 Dose 1 g in 50 mls @ ud IV .STK-MED ONE Sodium Chloride 1,000 mls @ 100 mls/hr 07/15/21 12:45 07/15/21 12:41 Sodium Chloride 0.9% 1000 Ml IV 08/14/21 12:44 100 mls/hr .Q10H JESSICA Administration Potassium Chloride 20 meq in 100 mls @ 50 mls/hr 07/15/21 14:43 07/15/21 15:15 Potassium Chloride 20 Meq In Water 100ml IV 07/15/21 16:42 50 mls/hr ONCE ONE Administration Potassium Chloride 20 meq in 100 mls @ 50 mls/hr 07/15/21 21:00 07/15/21 23:33 Potassium Chloride 20 Meq In Water 100ml IV 07/16/21 00:59 50 mls/hr Q2H JESSICA Administration Potassium Chloride 20 meq in 100 mls @ 50 mls/hr 07/16/21 06:45 07/16/21 10:31 Potassium Chloride 20 Meq In Water 100ml IV 07/16/21 10:44 50 mls/hr Q2H JESSICA Administration Ceftriaxone Sodium/Dextrose 1 g in 50 mls @ 100 mls/hr 07/15/21 10:56 07/15/21 10:56 Rocephin 1 Gm-D5w 50 Ml Bag IV 07/15/21 11:25 100 mls/hr STAT ONE Administration Potassium Chloride 20 meq in 100 mls @ 50 mls/hr 07/16/21 17:00 07/16/21 19:49 Potassium Chloride 20 Meq In Water 100ml IV 07/16/21 20:59 50 mls/hr Q2H JESSICA Administration Potassium Chloride 20 meq in 100 mls @ 50 mls/hr 07/17/21 02:00 07/17/21 05:15 Potassium Chloride 20 Meq In Water 100ml IV 07/17/21 05:59 50 mls/hr Q2H JESSICA Administration Magnesium Sulfate/Dextrose 100 mls @ 200 mls/hr 07/17/21 09:30 07/17/21 11:00 Magnesium 1 Gm / 100 Ml D5w IV 07/17/21 09:59 200 mls/hr STAT ONE Administration Intake & Output (Last 24 hours) 07/15/21 07/16/21 07/17/21 07/18/21 11:59 11:59 11:59 11:59 Intake Total 3609 3333 280 Output Total 300 2600 300 Balance 1857 -167 - Weight 117.7 kg 114.4 kg Microbiology Results (Last 24 hours) 07/15/21 10:05 Catherized Urine Culture - Final Escherichia Coli Laboratory Results (Last 24 hours) 07/17/21 07/17/21 07/17/21 11:17 09:48 06:57 Potassium 3.2 L D POC Glucometer 381 H 220 H Hemoglobin A1c 07/17/21 07/16/21 07/16/21 00:30 21:38 16:55 Potassium 2.5 L* POC Glucometer 302 H 278 H Hemoglobin A1c 07/16/21 07/16/21 16:09 05:00 Potassium 2.6 L* POC Glucometer Hemoglobin A1c 10.83 H Orders (Last 24 hours) Category Date Time Status Intake [Intake and Output] ,,, Care 07/17/21 09:10 Active Order K Level 2 hours post-inf 2 HRS POST K-INFUSED Care 07/16/21 16:58 Active Order K Level 2 hours post-inf 2 HRS POST K-INFUSED Care 07/17/21 01:54 Active Telemetry q4h Care 07/16/21 16:58 Completed Telemetry q4h Care 07/17/21 01:54 Completed CBC Urgent Lab 07/17/21 13:46 Received CMP Urgent Lab 07/17/21 13:46 Received POCT GLUCOSE Stat Lab 07/16/21 16:55 Completed POCT GLUCOSE Stat Lab 07/16/21 21:38 Completed POCT GLUCOSE Stat Lab 07/17/21 06:57 Completed POCT GLUCOSE Stat Lab 07/17/21 11:17 Completed Potassium (Lab Test) [Potassium] Routine Lab 07/16/21 16:09 Completed Potassium (Lab Test) [Potassium] Urgent Lab 07/17/21 00:30 Completed Potassium (Lab Test) [Potassium] Urgent Lab 07/17/21 09:48 Completed Magnesium Sulfate 1 gm/100 ml* [Magnesium 1 Gm / 100 Ml Med 07/17/21 09:30 Discontinued D5W] 100 ml IV STAT Potassium Bicarbonate 25 MEQ [K-Lyte 25 Meq] Med 07/17/21 10:00 Active 50 meq PO BID Potassium Chloride 20Meq/100Ml [POTASSIUM CHLORIDE 20 Med 07/16/21 17:00 Discontinued mEq IN WATER 100ML] 20 meq in 100 ml IV Q2H Potassium Chloride 20Meq/100Ml [POTASSIUM CHLORIDE 20 Med 07/17/21 02:00 Discontinued mEq IN WATER 100ML] 20 meq in 100 ml IV Q2H Patient Care Notes (Last 24 hours) 07/17/21 13:01 Case Management Note by Jackie Gonzalez PATIENT CONTINUES TO DENY ANY NEW NEEDS REGARDING DC AT THIS TIME. 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 FUNCTIONING AT TIME OF DC Initialized on 07/17/21 13:01 - END OF NOTE 07/17/21 01:51 Nursing Note by Kayli Us PT has critical potassium lab value of 2.5- Dr Joseph is notified and orders another 40 Meq k rider at this time Initialized on 07/17/21 01:51 - END OF NOTE 07/16/21 16:56 Nursing Note by Jesika Diaz CALLED DR. JOSEPH REPORTED PATIENT'S POTASSIUM. GAVE ORDER FOR 40 MEQ POTASSIUM IVB Initialized on 07/16/21 16:56 - END OF NOTE Code(s): E87.6 - HYPOKALEMIA (3) DKA (diabetic ketoacidosis) Current Visit: Yes Status: Acute Qualifiers: Diabetes mellitus type: type 2 Diabetes mellitus complication detail: with out coma Qualified Code(s): E11.10 - Type 2 diabetes mellitus with ketoacidosis without coma Code(s): E11.10 - TYPE 2 DIABETES MELLITUS WITH KETOACIDOSIS WITHOUT COMA (4) Acute renal injury Current Visit: Yes Status: Acute Code(s): N17.9 - ACUTE KIDNEY FAILURE, UNSPECIFIED (5) Dehydration Current Visit: Yes Status: Acute Code(s): E86.0 - DEHYDRATION
[2021-07-17 14:08] LABS: ALBUMIN 4.2 g/dL (3.5-5.0); ANION GAP 17.2 MEQ/L (5-15); BILIRUBIN,TOTAL 0.5 mg/dL (0.2-1.3); Calcium 8.6 mg/dL (8.4-10.2); Creatinine 1 1.74 mg/dL (0.52-1.04); EST GLOMERULAR FILTRATION RATE 31.4 ML/MIN; Potassium 3.1 mmol/L (3.5-5.1); Total Protein 7.2 g/dL (6.3-8.2)
[2021-07-17 14:16] LABS: Hematocrit 36.4 % (35-47); Hemoglobin 12.7 gm/dl (12.0-16.0); Mean Cell Volume 89.4 fl (78-100); Mean Corpuscular Hemoglobin 31.2 pg (26-32); Mean Corpuscular Hgb Concent. 34.9 g/dl (32-36); Mean Platelet Volume 11.1 fl (7.5-11.0); Platelet Count 325 K/mm3 (150-450); Red Blood Count 4.07 M/mm3 (4.1-5.4); White Blood Count 13.4 K/mm3 (4.0-10.5)
[2021-07-18] MEDS: Sodium Chloride 0.9% 1000 ML 1,000 ML IV SCH ×3 (04:15→23:40)
[2021-07-18 05:29] LABS: Hematocrit 35.5 % (35-47); Hemoglobin 12.2 gm/dl (12.0-16.0); Mean Cell Volume 89.9 fl (78-100); Mean Corpuscular Hemoglobin 30.9 pg (26-32); Mean Corpuscular Hgb Concent. 34.4 g/dl (32-36); Mean Platelet Volume 10.9 fl (7.5-11.0); Platelet Count 301 K/mm3 (150-450); Red Blood Count 3.95 M/mm3 (4.1-5.4); Red Cell Distribution Width 11.9 % (11.5-14.0); White Blood Count 11.9 K/mm3 (4.0-10.5)
[2021-07-18 05:42] LABS: ANION GAP 14.7 MEQ/L (5-15); BILIRUBIN,TOTAL 0.6 mg/dL (0.2-1.3); Calcium 8.5 mg/dL (8.4-10.2); Creatinine 1 1.37 mg/dL (0.52-1.04); EST GLOMERULAR FILTRATION RATE 41.4 ML/MIN
[2021-07-18 06:01] LABS: Potassium 2.9 mmol/L (3.5-5.1)
[2021-07-18] MEDS: Amaryl 2 MG PO SCH (07:37)
[2021-07-18] MEDS: HUMALOG SQ PRN ×4 (08:27→21:46)
[2021-07-18] MEDS: ECOTRIN 81 MG PO SCH (09:39)
[2021-07-18] MEDS: CALAN 80 MG PO SCH (09:39)
[2021-07-18] MEDS: K-LYTE 25 MEQ PO SCH ×2 (09:39→21:46)
[2021-07-18] MEDS: Ditropan XL 5 MG PO SCH (09:39)
[2021-07-18] MEDS: ROCEPHIN 1 Gm-D5w 50 ml Bag** 1 G/50 ML IVPB IV SCH (09:40)
[2021-07-18] MEDS: Lantus Insulin SQ SCH ×2 (09:40→21:46)
[2021-07-18] MEDS: POTASSIUM CHLORIDE 20 mEq IN WATER 100ML 20 MEQ/100 ML BAG IV SCH ×2 (10:54→12:42)
--- NOTE | 2021-07-18 17:12 | PCM.NOTE ---
Date and Time: 07/18/211709 Subjective Assessment: K level is 2.9 - Review of Systems Constitutional: No Fever, No Chills Eyes: No Symptoms Ears, Nose, & Throat: No Symptoms Respiratory: No Cough, No Short Of Breath Cardiac: No Chest Pain, No Edema, No Syncope Abdominal/Gastrointestinal: No Abdominal Pain, No Nausea, No Vomiting, No Diarrhea Genitourinary Symptoms: No Dysuria Musculoskeletal: No Back Pain, No Neck Pain Skin: No Rash Neurological: No Dizziness, No Focal Weakness, No Sensory Changes Psychological: No Symptoms Endocrine: No Symptoms Hematologic/Lymphatic: No Symptoms Immunological/Allergic: No Symptoms Objective Exam General Appearance: no apparent distress, alert Neurologic Exam: alert, oriented x 3, cooperative, normal mood/affect, nml cerebellar function, sensation nml, No motor deficits Skin Exam: normal color, warm, dry Eye Exam: PERRL, EOMI, eyes nml inspection Ears, Nose, Throat Exam: normal ENT inspection, pharynx normal, moist mucous membranes Neck Exam: normal inspection, non-tender, supple, full range of motion Respiratory Exam: normal breath sounds, lungs clear, No respiratory distress Cardiovascular Exam: regular rate/rhythm, normal heart sounds Gastrointestinal/Abdomen Exam: soft, No tenderness, No mass Extremity Exam: normal inspection, normal range of motion Back Exam: normal inspection, normal range of motion, No CVA tenderness, No vertebral tenderness Pelvic Exam: deferred Rectal Exam: deferred OBJECTIVE DATA Vital Signs: Vital Signs - 24 hr Temp Pulse Resp BP Pulse Ox 07/18/21 15:00 98.0 F 83 16 119/55 97 07/18/21 11:00 98.0 F 78 18 119/67 92 L 07/18/21 07:00 98.0 F 81 18 122/61 98 07/18/21 03:00 97.8 F 93 H 20 110/67 98 07/17/21 23:00 98.2 F 103 H 20 113/56 98 07/17/21 19:00 98.1 F 97 H 18 132/61 98 Pain Assessment - Last Documented Pain Intensity 0 Intake and Output: Intake & Output 07/16/21 07/17/21 07/18/21 07/19/21 11:59 11:59 11:59 11:59 Intake Total 2157 7433 4586 240 Output Total 300 2600 3900 700 Balance 1857 -167 176 -512 Weight 114.4 kg Lab Results: Lab Results-Last 24 Hours 07/17/21 07/18/21 07/18/21 Range/Units 21:26 05:15 05:15 WBC 11.9 H (4.0-10.5) K/mm3 RBC 3.95 L (4.1-5.4) M/mm3 Hgb 12.2 (12.0-16.0) gm/dl Hct 35.5 (35-47) % MCV 89.9 (78-100) fl MCH 30.9 (26-32) pg MCHC 34.4 (32-36) g/dl RDW 11.9 (11.5-14.0) % Plt Count 301 (150-450) K/mm3 MPV 10.9 (7.5-11.0) fl Sodium 132 L (137-145) mmol/L Potassium 2.9 L* (3.5-5.1) mmol/L Chloride 97 L (98-107) mmol/L Carbon Dioxide 23 (22-30) mmol/L Anion Gap 14.7 (5-15) MEQ/L BUN 66 H (7-17) mg/dL Creatinine 1.37 H (0.52-1.04) mg/dL Estimated GFR 41.4 ML/MIN Glucose 206 H (74-106) mg/dL POC Glucometer 346 H (74 to 106) mg/dL Calcium 8.5 (8.4-10.2) mg/dL Total Bilirubin 0.60 (0.2-1.3) mg/dL AST 23 (14-36) U/L ALT 21 (0-35) U/L Alkaline Phosphatase 79 (38-126) U/L Serum Total Protein 7.0 (6.3-8.2) g/dL Albumin 4.0 (3.5-5.0) g/dL 07/18/21 07/18/21 07/18/21 Range/Units 06:56 11:08 16:46 WBC (4.0-10.5) K/mm3 RBC (4.1-5.4) M/mm3 Hgb (12.0-16.0) gm/dl Hct (35-47) % MCV (78-100) fl MCH (26-32) pg MCHC (32-36) g/dl RDW (11.5-14.0) % Plt Count (150-450) K/mm3 MPV (7.5-11.0) fl Sodium (137-145) mmol/L Potassium (3.5-5.1) mmol/L Chloride (98-107) mmol/L Carbon Dioxide (22-30) mmol/L Anion Gap (5-15) MEQ/L BUN (7-17) mg/dL Creatinine (0.52-1.04) mg/dL Estimated GFR ML/MIN Glucose (74-106) mg/dL POC Glucometer 173 H 288 H 278 H (74 to 106) mg/dL Calcium (8.4-10.2) mg/dL Total Bilirubin (0.2-1.3) mg/dL AST (14-36) U/L ALT (0-35) U/L Alkaline Phosphatase (38-126) U/L Serum Total Protein (6.3-8.2) g/dL Albumin (3.5-5.0) g/dL Multi-Disciplinary Progress Notes: Multi-Disciplinary Progress Notes 07/18/21 13:07 Case Management Note by Jackie Gonzalez REVIEWED CHART- NO NEW NEEDS IDENTIFIED FOR DC AT THIS TIME Initialized on 07/18/21 13:07 - END OF NOTE Assessment/Plan (1) Hypokalemia Current Visit: Yes Status: Acute Assessment & Plan: Chief Complaint Diagnosis weakness for 1-2 days Allergies Allergy/AdvReac Type Severity Reaction Status Date / Time metformin AdvReac Verified 07/15/21 09:44 Vital Signs (Last 24 hours) Temp Pulse Resp BP Pulse Ox 07/18/21 15:00 98.0 F 83 16 119/55 97 07/18/21 11:00 98.0 F 78 18 119/67 92 L 07/18/21 07:00 98.0 F 81 18 122/61 98 07/18/21 03:00 97.8 F 93 H 20 110/67 98 07/17/21 23:00 98.2 F 103 H 20 113/56 98 07/17/21 19:00 98.1 F 97 H 18 132/61 98 Home Medications Medication Instructions Recorded Confirmed Last Taken Type Aspirin EC 81 mg [Ecotrin 81 81 mg PO DAILY 07/15/21 07/15/21 07/14/21 Histor y mg] Insulin Glargine,Hum.rec.anlog 35 units SQ BID 07/15/21 07/15/21 07/15/21 History [Noeladitijose manuel Shitracy U-100] Current Medications Generic Name Dose Route Start Last Admin Trade Name Freq PRN Reason Stop Dose Admin Aspirin 81 mg 07/15/21 17:00 07/18/21 09:39 Aspirin 81 Mg Tablet.Ec PO 08/14/21 16:59 81 mg DAILY JESSICA Administration Cholestyramine Resin 4 gm 07/15/21 16:32 Cholestyramine Light 4 Gm Packet PO 08/14/21 16:31 DAILY PRN PRN DIARRHEA Glimepiride 4 mg 07/15/21 17:00 07/18/21 07:37 Glimepiride 2 Mg Tablet PO 08/14/21 16:59 4 mg BREAKFAST JESSICA Administration Ceftriaxone Sodium/Dextrose 1 g in 50 mls @ 100 mls/hr 07/16/21 10:00 07/18/21 09:40 Rocephin 1 Gm-D5w 50 Ml Bag IV 07/20/21 09:59 100 mls/hr Q24H10 JESSICA Administration Sodium Chloride 1,000 mls @ 100 mls/hr 07/15/21 19:15 07/18/21 14:35 Sodium Chloride 0.9% 1000 Ml IV 08/14/21 19:14 100 mls/hr .Q10H JESSICA Administration Insulin Glargine 35 unit 07/15/21 22:00 07/18/21 09:40 Insulin Glargine 1 Unit SQ 08/14/21 21:59 35 unit BID JESSICA Administration Insulin Human Lispro 0 unit 07/18/21 13:10 07/18/21 17:02 Insulin Lispro 1 Unit SQ 08/17/21 13:09 10 unit UD PRN Administration HYPERGLYCEMIA Morphine Sulfate 4 mg 07/15/21 13:16 Morphine Sulfate 4 Mg/Ml Injection IV 07/20/21 13:15 Q4H PRN PRN PAIN Ondansetron HCl 4 mg 07/15/21 13:16 Ondansetron Hcl 4 Mg/2 Ml Vial IV 08/14/21 13:15 Q6H PRN PRN NAUSEA/VOMITING Ondansetron HCl 4 mg 07/15/21 16:32 Zofran 4 Mg/Udtablet Orally Disintegrating PO 08/14/21 16:31 Q6H PRN PRN VOMITING Oxybutynin Chloride 20 mg 07/15/21 17:00 07/18/21 09:39 Oxybutynin Chloride Xl 5 Mg Tab PO 08/14/21 16:59 20 mg DAILY JESSICA Administration Potassium Bicarbonate 50 meq 07/17/21 10:00 07/18/21 09:39 Potassium Bicarbonate 25 Meq Tab PO 08/16/21 09:59 50 meq BID JESSICA Administration Verapamil HCl 80 mg 07/15/21 17:00 07/18/21 09:39 Verapamil Hcl 80 Mg Tablet PO 08/14/21 16:59 80 mg DAILY JESSICA Administration Discontinued Medications Generic Name Dose Route Start Last Admin Trade Name Freq PRN Reason Stop Dose Admin Glimepiride 4 mg 07/15/21 17:00 Glimepiride 2 Mg Tablet PO 08/14/21 16:59 DAILY JESSICA Sodium Chloride 1,000 mls @ 999 mls/hr 07/15/21 09:54 07/15/21 10:07 Sodium Chloride 0.9% 1000 Ml IV 07/15/21 10:54 999 mls/hr .Q1H1M STA Administration Sodium Chloride Confirm 07/15/21 10:06 Sodium Chloride 0.9% 1000 Ml Administered 07/15/21 10:07 Dose 1,000 mls @ ud .ROUTE .STK-MED ONE Ceftriaxone Sodium/Dextrose 1 g in 50 mls @ 100 mls/hr 07/16/21 10:00 Rocephin 1 Gm-D5w 50 Ml Bag IV 07/19/21 09:59 Q24H10 JESSICA Potassium Chloride 20 meq in 100 mls @ 50 mls/hr 07/15/21 11:00 07/15/21 15:21 Potassium Chloride 20 Meq In Water 100ml IV 07/15/21 14:59 Not Given Q2H JESSICA Ceftriaxone Sodium/Dextrose Confirm 07/15/21 10:56 Rocephin 1 Gm-D5w 50 Ml Bag Administered 07/15/21 10:57 Dose 1 g in 50 mls @ ud IV .STK-MED ONE Sodium Chloride 1,000 mls @ 100 mls/hr 07/15/21 12:45 07/15/21 12:41 Sodium Chloride 0.9% 1000 Ml IV 08/14/21 12:44 100 mls/hr .Q10H JESSICA Administration Potassium Chloride 20 meq in 100 mls @ 50 mls/hr 07/15/21 14:43 07/15/21 15:15 Potassium Chloride 20 Meq In Water 100ml IV 07/15/21 16:42 50 mls/hr ONCE ONE Administration Potassium Chloride 20 meq in 100 mls @ 50 mls/hr 07/15/21 21:00 07/15/21 23:33 Potassium Chloride 20 Meq In Water 100ml IV 07/16/21 00:59 50 mls/hr Q2H JESSICA Administration Potassium Chloride 20 meq in 100 mls @ 50 mls/hr 07/16/21 06:45 07/16/21 10:31 Potassium Chloride 20 Meq In Water 100ml IV 07/16/21 10:44 50 mls/hr Q2H JESSICA Administration Ceftriaxone Sodium/Dextrose 1 g in 50 mls @ 100 mls/hr 07/15/21 10:56 07/15/21 10:56 Rocephin 1 Gm-D5w 50 Ml Bag IV 07/15/21 11:25 100 mls/hr STAT ONE Administration Potassium Chloride 20 meq in 100 mls @ 50 mls/hr 07/16/21 17:00 07/16/21 19:49 Potassium Chloride 20 Meq In Water 100ml IV 07/16/21 20:59 50 mls/hr Q2H JESSICA Administration Potassium Chloride 20 meq in 100 mls @ 50 mls/hr 07/17/21 02:00 07/17/21 05:15 Potassium Chloride 20 Meq In Water 100ml IV 07/17/21 05:59 50 mls/hr Q2H JESSICA Administration Magnesium Sulfate/Dextrose 100 mls @ 200 mls/hr 07/17/21 09:30 07/17/21 11:00 Magnesium 1 Gm / 100 Ml D5w IV 07/17/21 09:59 200 mls/hr STAT ONE Administration Potassium Chloride 20 meq in 100 mls @ 50 mls/hr 07/18/21 10:15 07/18/21 12:42 Potassium Chloride 20 Meq In Water 100ml IV 07/18/21 14:14 50 mls/hr Q2H JESSICA Administration Insulin Human Lispro 0 unit 07/15/21 15:49 07/18/21 11:47 Insulin Lispro 1 Unit SQ 08/14/21 15:48 7 unit UD PRN Administration HYPERGLYCEMIA Intake & Output (Last 24 hours) 07/16/21 07/17/21 07/18/21 07/19/21 11:59 11:59 11:59 11:59 Intake Total 2157 2433 4586 240 Output Total 300 2600 3900 700 Balance 1857 167 616 -460 Weight 114.4 kg Laboratory Results (Last 24 hours) 07/18/21 07/18/21 07/18/21 16:46 11:08 06:56 WBC RBC Hgb Hct MCV MCH MCHC RDW Plt Count MPV Sodium Potassium Chloride Carbon Dioxide Anion Gap BUN Creatinine Estimated GFR Glucose POC Glucometer 278 H 288 H 173 H Calcium Total Bilirubin AST ALT Alkaline Phosphatase Serum Total Protein Albumin 07/18/21 07/18/21 07/17/21 05:15 05:15 21:26 WBC 11.9 H RBC 3.95 L Hgb 12.2 Hct 35.5 MCV 89.9 MCH 30.9 MCHC 34.4 RDW 11.9 Plt Count 301 MPV 10.9 Sodium 132 L Potassium 2.9 L* Chloride 97 L Carbon Dioxide 23 Anion Gap 14.7 BUN 66 H Creatinine 1.37 H Estimated GFR 41.4 Glucose 206 H POC Glucometer 346 H Calcium 8.5 Total Bilirubin 0.60 AST 23 ALT 21 Alkaline Phosphatase 79 Serum Total Protein 7.0 Albumin 4.0 Orders (Last 24 hours) Category Date Time Status Nursing [Miscellaneous Nursing Order] ROUTINE Care 07/18/21 10:12 Active Order K Level 2 hours post-inf 2 HRS POST K-INFUSED Care 07/18/21 10:11 Active CBC Routine Lab 07/18/21 05:15 Completed CMP AM.LAB Lab 07/18/21 05:15 Completed POCT GLUCOSE Stat Lab 07/17/21 16:37 Completed POCT GLUCOSE Stat Lab 07/17/21 21:26 Completed POCT GLUCOSE Stat Lab 07/18/21 06:56 Completed POCT GLUCOSE Stat Lab 07/18/21 11:08 Completed POCT GLUCOSE Stat Lab 07/18/21 16:46 Completed Pot [Potassium] Urgent Lab 07/18/21 16:30 Ordered Insulin Lispro [Humalog] Med 07/18/21 13:10 Active See Dose Instructions SQ UD PRN Potassium Chloride 20Meq/100Ml [POTASSIUM CHLORIDE 20 Med 07/18/21 10:15 Discontinued mEq IN WATER 100ML] 20 meq in 100 ml IV Q2H Patient Care Notes (Last 24 hours) 07/18/21 13:07 Case Management Note by Jackie Gonzalez REVIEWED CHART- NO NEW NEEDS IDENTIFIED FOR DC AT THIS TIME Initialized on 07/18/21 13:07 - END OF NOTE 07/18/21 11:00 Nursing Note by María Elena Alatorre 1st k+ rider started at this time. Initialized on 07/18/21 11:00 - END OF NOTE Code(s): E87.6 - HYPOKALEMIA (2) UTI (urinary tract infection) Current Visit: Yes Status: Acute Qualifiers: Urinary tract infection type: acute pyelonephritis Qualified Code(s): N10 - Acute pyelonephritis Code(s): N39.0 - URINARY TRACT INFECTION, SITE NOT SPECIFIED (3) DKA (diabetic ketoacidosis) Current Visit: Yes Status: Acute Qualifiers: Diabetes mellitus type: type 2 Diabetes mellitus complication detail: without coma Qualified Code(s): E11.10 - Type 2 diabetes mellitus with ketoacidosis without coma Code(s): E11.10 - TYPE 2 DIABETES MELLITUS WITH KETOACIDOSIS WITHOUT COMA (4) Acute renal injury Current Visit: Yes Status: Acute Code(s): N17.9 - ACUTE KIDNEY FAILURE, UNSPECIFIED (5) Dehydration Current Visit: Yes Status: Acute Code(s): E86.0 - DEHYDRATION
[2021-07-19 05:46] LABS: Hemoglobin 11.5 gm/dl (12.0-16.0); Mean Cell Volume 94.3 fl (78-100); Mean Corpuscular Hgb Concent. 32.9 g/dl (32-36); Mean Platelet Volume 11.6 fl (7.5-11.0); Platelet Count 257 K/mm3 (150-450); Red Blood Count 3.71 M/mm3 (4.1-5.4); Red Cell Distribution Width 12.3 % (11.5-14.0)
[2021-07-19 06:41] LABS: ALBUMIN 3.5 g/dL (3.5-5.0); ANION GAP 15.1 MEQ/L (5-15); BILIRUBIN,TOTAL 0.6 mg/dL (0.2-1.3); Calcium 8.4 mg/dL (8.4-10.2); Creatinine 1 1.12 mg/dL (0.52-1.04); EST GLOMERULAR FILTRATION RATE 52.2 ML/MIN; Potassium 3.4 mmol/L (3.5-5.1); Total Protein 6.6 g/dL (6.3-8.2)
[2021-07-19] MEDS: Amaryl 2 MG PO SCH (08:21)
[2021-07-19] MEDS: ECOTRIN 81 MG PO SCH (09:32)
[2021-07-19] MEDS: K-LYTE 25 MEQ PO SCH (09:32)
[2021-07-19] MEDS: Lantus Insulin SQ SCH (09:33)
[2021-07-19] MEDS: CALAN 80 MG PO SCH (09:33)
[2021-07-19] MEDS: Ditropan XL 5 MG PO SCH (09:35)
[2021-07-19] MEDS: ROCEPHIN 1 Gm-D5w 50 ml Bag** 1 G/50 ML IVPB IV SCH (09:37)
[2021-07-19] MEDS: Sodium Chloride 0.9% 1000 ML 1,000 ML IV SCH (09:41)
[2021-07-19] MEDS: HUMALOG SQ PRN (11:50)
[2021-07-19 11:59] VITALS: BP 114/55; PULSE 77; O2SAT 96
== END 2021-07-19 13:13 | disposition home or self-care (01) ==
LOC: ED 09:39 → MED SURG 12:45
PROVIDERS: ADMIT General Practice; ATTEND General Practice
DX: E11.10 Type 2 diabetes mellitus with ketoacidosis without coma (principal); N17.9 Acute kidney failure, unspecified; E86.0 Dehydration; N39.0 Urinary tract infection, site not specified; E87.6 Hypokalemia; N10 Acute pyelonephritis; I10 Essential (primary) hypertension; J44.9 Chronic obstructive pulmonary disease, unspecified; Z20.828 Contact with and (suspected) exposure to other viral communicable diseases; Z79.899 Other long term (current) drug therapy
CPT/HCPCS: 0241U; 36000; 36415; 36600; 80053; 81001; 82375; 82803; 82947; 83036; 83735; 84132; 84484; 85025; 85027; 87077; 87086; 87186; 93005; 93041; 94760; 96360; 96365; 99285; 93268; J0696; J1817; J3475; J3480; A9270-GY; G0378

== ENCOUNTER 2021-09-24 11:35 | Emergency (ER) | payer OTHER ==
--- NOTE | 2021-09-24 11:55 | ERPHSYRPT ---
- History of Present Illness Time Seen by Provider: 09/24/21 11:50 Historian: patient Exam Limitations: no limitations Patient Subjective Stated Complaint: Pt states "There are allot of things that bring me here today. My sugar is up, my feet and arms are cramping, my heart is acting up and I do not feel well." Triage Nursing Assessment: Pt presented alert and oriented X 3, skin pwd Pt ambulates with an upright steady gait, able to speak in clear full sentences pt in no apparent respiratory distress. Pt resting comfortably on the bed. Physician History: Patient is a 61-year-old female presents to emergency department for evaluation of feet and upper extremity cramping. Patient is a diabetic. Patient states her sugar levels have been somewhat elevated. Patient has a history of renal disease and is concerned that her kidneys "are acting up". No fever. No nausea or vomiting. No diaphoresis. Patient states she has been experiencing "a racing heart". Patient saw her b2b outside sales representative and patient is currently on a Holter monitor. Currently patient EKG shows a sinus tachycardia with a rate of 104. No active pain at this time. No chest pain or shortness of breath. No fever. Patient voices no other complaints or concerns at this time. Timing/Duration: today Allergies/Adverse Reactions: metformin Adverse Reaction (Verified 07/15/21 09:44) Home Medications: Glimepiride 2 mg [Amaryl 2 MG] 4 mg PO DAILY 09/02/18 [History] Oxybutynin Chloride [Oxybutynin Chloride ER] 20 mg PO DAILY 09/02/18 [History] Verapamil HCl 80 mg [Calan 80 mg] 80 mg PO DAILY 09/02/18 [History] Aspirin EC 81 mg [Ecotrin 81 mg] 81 mg PO DAILY 07/15/21 [History] Insulin Glargine,Hum.rec.anlog [Noelagljose manuel Shipen U-100] 35 units SQ BID 07/15/21 [History] Hx Tetanus, Diphtheria Vaccination/Date Given: Yes Hx Influenza Vaccination/Date Given: Yes Hx Pneumococcal Vaccination/Date Given: No Immunizations Up to Date: Yes Travel Risk - International Travel Have you traveled outside of the country in past 3 weeks: No - Coronavirus Screening Are you exhibiting any of the following symptoms?: No Close contact with a COVID-19 positive Pt in past 14-21 Days: No - Vaccine Status Have you recieved a Covid-19 vaccination: Yes Missile Mechanic: Moderna - Vaccination Dates Date of 2cond Vaccination (if applicable): 12/13/20 - Past Medical History Pertinent Past Medical History: Yes Neurological History: No Pertinent History ENT History: No Pertinent History Cardiac History: Hypertension Respiratory History: No Pertinent History Endocrine Medical History: Diabetes Type II Musculoskeletal History: No Pertinent History GI Medical History: No Pertinent History History: No Pertinent History Psycho-Social History: No Pertinent History Female Reproductive Disorders: No Pertinent History Other Medical History: fatty liver , seeing a b2b outside sales representative currently for "slow heart rate" - Past Surgical History Past Surgical History: Yes Neuro Surgical History: No Pertinent History Cardiac: No Pertinent History Respiratory: No Pertinent History Gastrointestinal: No Pertinent History Genitourinary: No Pertinent History Musculoskeletal: Orthopedic Surgery Female Surgical History: Section Other Surgical History: 3- , back surgery - Social History Smoking Status: Never smoker Exposure to second hand smoke: Yes Drug Use: none Patient Lives Alone: No - Nursing Vital Signs Nursing Vital Signs: Initial Vital Signs Temperature 98.2 F 09/24/21 11:41 Pulse Rate 107 H 09/24/21 11:41 Respiratory Rate 24 09/24/21 11:41 Blood Pressure 114/76 09/24/21 11:41 O2 Sat by Pulse Oximetry 99 09/24/21 11:41 Pain Scale Pain Intensity 5 - Physical Exam SpO2: 99 - Departure Referrals: ROSANA JOSEPH MD [Primary Care Provider] - Follow up/PCP as directed
--- NOTE | 2021-09-24 11:59 | ERPHSYRPT ---
- History of Present Illness Time Seen by Provider: 09/24/21 11:50 Source: patient Exam Limitations: no limitations Patient Subjective Stated Complaint: Pt states "There are allot of things that bring me here today. My sugar is up, my feet and arms are cramping, my heart is acting up and I do not feel well." Triage Nursing Assessment: Pt presented alert and oriented X 3, skin pwd Pt ambulates with an upright steady gait, able to speak in clear full sentences pt in no apparent respiratory distress. Pt resting comfortably on the bed. Physician History: Patient is a 61-year-old female presents to emergency department for evaluation of feet and upper extremity cramping. Patient is a diabetic. Patient states her sugar levels have been somewhat elevated. Patient has a history of renal disease and is concerned that her kidneys "are acting up". No fever. No nausea or vomiting. No diaphoresis. Patient states she has been experiencing "a racing heart". Patient saw her section beamer and patient is currently on a Holter monitor. Currently patient EKG shows a sinus tachycardia with a rate of 104. No active pain at this time. No chest pain or shortness of breath. No fever. Patient voices no other complaints or concerns at this time.Patient Timing/Duration: yesterday Severity: moderate Modifying Factors: Improves With: nothing Associated Symptoms: denies symptoms Allergies/Adverse Reactions: metformin Adverse Reaction (Verified 07/15/21 09:44) Home Medications: Glimepiride 2 mg [Amaryl 2 MG] 4 mg PO DAILY 09/02/18 [History] Oxybutynin Chloride [Oxybutynin Chloride ER] 20 mg PO DAILY 09/02/18 [History] Verapamil HCl 80 mg [Calan 80 mg] 80 mg PO DAILY 09/02/18 [History] Aspirin EC 81 mg [Ecotrin 81 mg] 81 mg PO DAILY 07/15/21 [History] Insulin Glargine,Hum.rec.anlog [Basaglar Kwikpen U-100] 35 units SQ BID 07/15/21 [History] Hx Tetanus, Diphtheria Vaccination/Date Given: Yes Hx Influenza Vaccination/Date Given: Yes Hx Pneumococcal Vaccination/Date Given: No Immunizations Up to Date: Yes Travel Risk - International Travel Have you traveled outside of the country in past 3 weeks: No - Coronavirus Screening Are you exhibiting any of the following symptoms?: No Close contact with a COVID-19 positive Pt in past 14-21 Days: No - Vaccine Status Have you recieved a Covid-19 vaccination: Yes Propeller Mechanic: Moderna - Vaccination Dates Date of 2cond Vaccination (if applicable): 12/13/20 - Review of Systems Constitutional: No Symptoms, No Fever, No Chills Eyes: No Symptoms Ears, Nose, & Throat: No Symptoms Respiratory: No Symptoms, No Cough, No Dyspnea Cardiac: No Symptoms, No Chest Pain, No Edema, No Syncope Abdominal/Gastrointestinal: No Symptoms, No Abdominal Pain, No Nausea, No Vomiting, No Diarrhea Genitourinary Symptoms: No Symptoms, No Dysuria Musculoskeletal: No Symptoms, No Back Pain, No Neck Pain Skin: No Symptoms, No Rash Neurological: No Symptoms, No Dizziness, No Focal Weakness, No Sensory Changes Psychological: No Symptoms Endocrine: No Symptoms Hematologic/Lymphatic: No Symptoms Immunological/Allergic: No Symptoms All Other Systems: Reviewed and Negative - Past Medical History Pertinent Past Medical History: Yes Neurological History: No Pertinent History ENT History: No Pertinent History Cardiac History: Hypertension Respiratory History: No Pertinent History Endocrine Medical History: Diabetes Type II Musculoskeletal History: No Pertinent History GI Medical History: No Pertinent History History: No Pertinent History Psycho-Social History: No Pertinent History Female Reproductive Disorders: No Pertinent History Other Medical History: fatty liver , seeing a section beamer currently for "slow heart rate" - Past Surgical History Past Surgical History: Yes Neuro Surgical History: No Pertinent History Cardiac: No Pertinent History Respiratory: No Pertinent History Gastrointestinal: No Pertinent History Genitourinary: No Pertinent History Musculoskeletal: Orthopedic Surgery Female Surgical History: Section Other Surgical History: 3- , back surgery - Social History Smoking Status: Never smoker Exposure to second hand smoke: Yes Drug Use: none Patient Lives Alone: No - Nursing Vital Signs Nursing Vital Signs: Initial Vital Signs Temperature 98.2 F 09/24/21 11:41 Pulse Rate 107 H 09/24/21 11:41 Respiratory Rate 24 09/24/21 11:41 Blood Pressure 114/76 09/24/21 11:41 O2 Sat by Pulse Oximetry 99 09/24/21 11:41 Pain Scale Pain Intensity 5 - Physical Exam General Appearance: no apparent distress, alert Eye Exam: PERRL/EOMI, eyes nml inspection Ears, Nose, Throat Exam: normal ENT inspection, TMs normal, pharynx normal, moist mucous membranes Neck Exam: normal inspection, non-tender, supple, full range of motion Respiratory Exam: normal breath sounds, lungs clear, airway intact, No respirat ory distress Cardiovascular Exam: regular rate/rhythm, normal heart sounds, normal peripheral pulses Gastrointestinal/Abdomen Exam: soft, normal bowel sounds, No tenderness, No mass Back Exam: normal inspection, normal range of motion, No CVA tenderness, No vertebral tenderness Extremity Exam: normal inspection, normal range of motion, pelvis stable Neurologic Exam: alert, oriented x 3, cooperative, normal mood/affect, nml cerebellar function, nml station & gait, sensation nml, No motor deficits Skin Exam: normal color, warm, dry, No rash Lymphatic Exam: No adenopathy SpO2 Interpretation: normal SpO2: 99 O2 Delivery: Room Air - Course Nursing assessment & vital signs reviewed: Yes EKG Interpreted by Me: RATE (104), Sinus Tach, NORMAL AXIS, NORMAL INTERVALS Ordered Tests: Active Orders 24 hr Category Date Time Status Concrete Block Plant Supervisor STAT Care 09/24/21 11:51 Completed EKG-ER Only STAT Care 09/24/21 11:50 Completed Rodriguez [Catheter-White Salmon Rodriguez] STAT Care 09/24/21 12:41 Completed IV Insertion STAT Care 09/24/21 11:50 Completed Pulse Oximetry (ED) STAT Care 09/24/21 11:50 Completed CBC W DIFF Stat Lab 09/24/21 11:50 Completed CMP Stat Lab 09/24/21 11:50 Completed MAGNESIUM Stat Lab 09/24/21 11:50 Completed TROPONIN Q3H Lab 09/24/21 11:50 Completed Medication Summary Discontinued Medications Generic Name Dose Route Start Last Admin Trade Name Freq PRN Reason Stop Dose Admin Sodium Chloride 1,000 mls @ 100 mls/hr 09/24/21 12:00 09/24/21 12:03 Sodium Chloride 0.9% 1000 Ml IV 10/24/21 11:59 100 mls/hr .Q10H JESSICA Administration Sodium Chloride Confirm 09/24/21 12:02 Sodium Chloride 0.9% 1000 Ml Administered 09/24/21 12:03 Dose 1,000 mls @ ud .ROUTE .STK-MED ONE Lorazepam 0.5 mg 09/24/21 12:49 09/24/21 12:53 Lorazepam 2 Mg/1 Ml 2 Mg Vial IV 09/24/21 12:50 0.5 mg ONCE STA Administration Lorazepam Confirm 09/24/21 12:52 Lorazepam 2 Mg/1 Ml 2 Mg Vial Administered 09/24/21 12:53 Dose 2 mg .ROUTE .STK-MED ONE Lab/Rad Data: Laboratory Result Diagrams 09/24/21 11:50 09/24/21 11:50 Laboratory Results 09/24/21 09/24/21 09/24/21 Range/Units 11:50 11:50 11:50 WBC 16.3 H (4.0-10.5) K/mm3 RBC 4.26 (4.1-5.4) M/mm3 Hgb 13.1 (12.0-16.0) gm/dl Hct 37.4 (35-47) % MCV 87.8 (78-100) fl MCH 30.8 (26-32) pg MCHC 35.0 (32-36) g/dl RDW 12.6 (11.5-14.0) % Plt Count 447 (150-450) K/mm3 MPV 10.9 (7.5-11.0) fl Gran % 81.7 H (36.0-66.0) % Eos # (Auto) 0.01 (0-0.5) Absolute Lymphs (auto) 1.89 (1.0-4.6) Absolute Monos (auto) 1.05 (0.0-1.3) Lymphocytes % 11.6 L (24.0-44.0) % Monocytes % 6.4 (0.0-12.0) % Eosinophils % 0.1 (0.00-5.0) % Basophils % 0.2 (0.0-0.4) % Absolute Granulocytes 13.29 H (1.4-6.9) Basophils # 0.04 (0-0.4) Sodium 122 L (137-145) mmol/L Potassium 3.5 (3.5-5.1) mmol/L Chloride 79 L (98-107) mmol/L Carbon Dioxide 13 L* (22-30) mmol/L Anion Gap 33.3 H (5-15) MEQ/L BUN 124 H (7-17) mg/dL Creatinine 5.74 H (0.52-1.04) mg/dL Estimated GFR 7.9 ML/MIN Glucose 354 H (74-106) mg/dL Calcium 9.2 (8.4-10.2) mg/dL Magnesium 3.4 H (1.6-2.3) mg/dL Total Bilirubin 0.90 (0.2-1.3) mg/dL AST 32 (14-36) U/L ALT 32 (0-35) U/L Alkaline Phosphatase 91 (38-126) U/L Troponin I < 0.012 (0.000-0.034) ng/mL Serum Total Protein 9.5 H (6.3-8.2) g/dL Albumin 5.3 H (3.5-5.0) g/dL - Progress Progress: improved Progress Note: 09/24/21 12:52 Work-up reveals diabetic ketoacidosis acute renal injury hyponatremia leukocytosis. UA pending. We will insert a Rodriguez catheter to monitor urine output. We do not have nephrology immediately available patient will be transferred to [facility] for further evaluation and treatment. Case discussed with Dr. Fidel evangelista ER physician at [facility] who accepts transfer. Plan of care discussed with patient. She agrees to transfer to [facility] for further evaluation and treatment. Portions of this note were created with voice recognition technology. There may be grammatical, spelling, punctuation or sound alike errors Counseled pt/family regarding: lab results, diagnosis, need for follow-up, rad results - Departure Departure Disposition: Transfer Clinical Impression: Hyperglycemia, Acute renal injury, Leukocytosis, Diabetic ketoacidosis, Hypochloremia, Hyponatremia Condition: Stable Critical Care Time: No Referrals: ROSANA JOSEPH MD [Primary Care Provider] - Follow up/PCP as directed
[2021-09-24] MEDS ORDERED: Sodium Chloride 0.9% 1000 ML 1,000 ML ONE (12:02)
[2021-09-24] MEDS: Sodium Chloride 0.9% 1000 ML 1,000 ML IV SCH (12:03)
[2021-09-24 12:18] LABS: Absolute Neutrophil Ct (ANC) 13.29 (1.4-6.9); Basophil (Absolute #) 0.04 (0-0.4); Eosinophil % 0.1 % (0.00-5.0); Eosinophil (Absolute #) 0.01 (0-0.5); Hematocrit 37.4 % (35-47); Hemoglobin 13.1 gm/dl (12.0-16.0); Lymphocyte (Absolute #) 1.89 (1.0-4.6); Lymphocytes % 11.6 % (24.0-44.0); Mean Cell Volume 87.8 fl (78-100); Mean Corpuscular Hemoglobin 30.8 pg (26-32); Mean Platelet Volume 10.9 fl (7.5-11.0); Monocyte (Absolute #) 1.05 (0.0-1.3); Monocytes % 6.4 % (0.0-12.0); Neutrophil % 81.7 % (36.0-66.0); Platelet Count 447 K/mm3 (150-450); Red Blood Count 4.26 M/mm3 (4.1-5.4); Red Cell Distribution Width 12.6 % (11.5-14.0); White Blood Count 16.3 K/mm3 (4.0-10.5)
[2021-09-24 12:22] LABS: ALBUMIN 5.3 g/dL (3.5-5.0); ANION GAP 33.3 MEQ/L (5-15); BILIRUBIN,TOTAL 0.9 mg/dL (0.2-1.3); Calcium 9.2 mg/dL (8.4-10.2); Creatinine 1 5.74 mg/dL (0.52-1.04); EST GLOMERULAR FILTRATION RATE 7.9 ML/MIN; MAGNESIUM 3.4 mg/dL (1.6-2.3); Potassium 3.5 mmol/L (3.5-5.1); Total Protein 9.5 g/dL (6.3-8.2)
[2021-09-24 12:37] VITALS: BP 94/71; PULSE 100
[2021-09-24 12:41] VITALS: O2SAT 99
[2021-09-24] MEDS ORDERED: Ativan 2 MG/1 ML VIAL ONE (12:52)
[2021-09-24] MEDS: Ativan 2 MG/1 ML VIAL IV STA (12:53)
== END 2021-09-24 13:55 | disposition short-term general hospital (02) ==
LOC: ED 11:35
DX: E11.10 Type 2 diabetes mellitus with ketoacidosis without coma (principal); E11.65 Type 2 diabetes mellitus with hyperglycemia; N17.9 Acute kidney failure, unspecified; D72.829 Elevated white blood cell count, unspecified; E87.8 Other disorders of electrolyte and fluid balance, not elsewhere classified; E87.1 Hypo-osmolality and hyponatremia; R25.2 Cramp and spasm; R00.0 Tachycardia, unspecified; Z79.4 Long term (current) use of insulin; I10 Essential (primary) hypertension
CPT/HCPCS: 36000; 36415; 51702; 80053; 83735; 84484; 85025; 93005; 93041; 94760; 96374; 99285; J2060

== ENCOUNTER 2021-12-10 10:30 | Emergency (ER) | payer OTHER ==
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
[2021-12-10 11:22] LABS: Absolute Neutrophil Ct (ANC) 15.28 x10^3/uL (1.4-6.9); Basophil (Absolute #) 0.16 x10^3/uL (0-0.4); Eosinophil % 0.3 % (0.00-5.0); Eosinophil (Absolute #) 0.06 x10^3/uL (0-0.5); Hematocrit 41.8 % (35-47); Hemoglobin 14.7 g/dL (12.0-16.0); Lymphocyte (Absolute #) 3.07 x10^3/uL (1.0-4.6); Lymphocytes % 15.4 % (24.0-44.0); Mean Cell Volume 84.8 fL (78-100); Mean Corpuscular Hemoglobin 29.8 pg (26-32); Mean Corpuscular Hgb Concent. 35.2 g/dL (32-36); Monocytes % 6.5 % (0.0-12.0); Neutrophil % 76.5 % (36.0-66.0); Platelet Count 536 x10^3/uL (150-450); Red Blood Count 4.93 x10^6/uL (4.1-5.4); Red Cell Distribution Width 12.5 % (11.5-14.0)
[2021-12-10] MEDS ORDERED: Sodium Chloride 0.9% 1000 ML 1,000 ML IV STA (11:23)
[2021-12-10] MEDS ORDERED: Sodium Chloride 0.9% 1000 ML 1,000 ML ONE (11:26)
[2021-12-10 11:29] LABS: ALBUMIN 5.7 g/dL (3.5-5.0); ANION GAP 31.1 MEQ/L (5-15); BILIRUBIN,TOTAL 1.2 mg/dL (0.2-1.3); Calcium 10.4 mg/dL (8.4-10.2); Creatinine 1 3.23 mg/dL (0.52-1.04); EST GLOMERULAR FILTRATION RATE 15.4 ML/MIN; Total Protein 10.6 g/dL (6.3-8.2)
[2021-12-10] MEDS ORDERED: Klor Con PO ONE ×2 (11:39→11:46)
[2021-12-10] MEDS ORDERED: POTASSIUM CHLORIDE 20 mEq IN WATER 100ML 20 MEQ/100 ML BAG IV ONE (11:39)
[2021-12-10] MEDS ORDERED: Magnesium 1 Gm / 100 Ml D5W*** 200 ML IV ONE (11:47)
[2021-12-10] MEDS: Magnesium 1 Gm / 100 Ml D5W*** 100 ML IV SCH ×2 (11:50→12:26)
[2021-12-10 11:55] LABS: Bacteria MANY /HPF (NEGATIVE); Crystals Unidentified 25-50 /HPF (NEGATIVE); Mucus SLIGHT /HPF (NEGATIVE); WBC >100 /HPF (0-5)
[2021-12-10 11:59] LABS: Budding Yeast Few /HPF (NEGATIVE); RBC >101 /HPF (0-2); Urine Cultured Indicated? YES
[2021-12-10 12:01] LABS: Appearance CLOUDY (CLEAR); Bilirubin SMALL (NEGATIVE); Glucose NEGATIVE (NEGATIVE); Ketones NEGATIVE (NEGATIVE); RBC LARGE Ery/ul (0-5); Specific Gravity >=1.030 (1.005-1.025)
[2021-12-10] MEDS ORDERED: POTASSIUM CHLORIDE 20 mEq IN WATER 100ML 100 ML IV ONE (12:01)
[2021-12-10 12:02] LABS: Dipstick done @ ? MAIN LAB; Nitrite NEGATIVE (NEGATIVE); Ph 5.5 (5-6); Protein,Urine Dip 100 (Negative); Urobilinogen 1 mg/dL (0-1)
[2021-12-10] MEDS ORDERED: Magnesium 1 Gm / 100 Ml D5W*** 100 ML IV ONE (12:26)
[2021-12-10 14:07] VITALS: BP 110/70; PULSE 88; O2SAT 98
== END 2021-12-10 14:12 | disposition short-term general hospital (02) ==
LOC: ED 10:30
DX: N17.9 Acute kidney failure, unspecified (principal); N39.0 Urinary tract infection, site not specified; E87.6 Hypokalemia; J22 Unspecified acute lower respiratory infection; D72.829 Elevated white blood cell count, unspecified; D75.839 Thrombocytosis, unspecified; E87.1 Hypo-osmolality and hyponatremia; E86.0 Dehydration; E87.2 Acidosis; E11.65 Type 2 diabetes mellitus with hyperglycemia; E11.22 Type 2 diabetes mellitus with diabetic chronic kidney disease; N18.9 Chronic kidney disease, unspecified; Z86.16 Personal history of COVID-19; Z79.4 Long term (current) use of insulin; Z79.899 Other long term (current) drug therapy
CPT/HCPCS: 36000; 36415; 80053; 81015; 83605; 84484; 85025; 87077; 87086; 87186; 94760; 96360; 99285; J3475; J3480; A9270-GY

== ENCOUNTER 2022-01-16 04:22 | Emergency (ER) | payer OTHER ==
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
[2022-01-16] MEDS ORDERED: Sodium Chloride 0.9% 1000 ML 1,000 ML IV STA ×2 (05:07→08:26)
[2022-01-16] MEDS ORDERED: Sodium Chloride 0.9% 1000 ML 1,000 ML ONE ×2 (05:13→07:37)
[2022-01-16 05:25] LABS: Absolute Neutrophil Ct (ANC) 11.96 x10^3/uL (1.4-6.9); Basophil (Absolute #) 0.05 x10^3/uL (0-0.4); Eosinophil % 0.1 % (0.00-5.0); Eosinophil (Absolute #) 0.01 x10^3/uL (0-0.5); Hematocrit 29.9 % (35-47); Hemoglobin 9.4 g/dL (12.0-16.0); Lymphocyte (Absolute #) 0.59 x10^3/uL (1.0-4.6); Lymphocytes % 4.6 % (24.0-44.0); Mean Cell Volume 93.4 fL (78-100); Mean Corpuscular Hemoglobin 29.4 pg (26-32); Mean Corpuscular Hgb Concent. 31.4 g/dL (32-36); Mean Platelet Volume 9.9 fL (7.5-11.0); Monocyte (Absolute #) 0.23 x10^3/uL (0.0-1.3); Monocytes % 1.8 % (0.0-12.0); Neutrophil % 92.7 % (36.0-66.0); Platelet Count 412 x10^3/uL (150-450); Red Cell Distribution Width 13.6 % (11.5-14.0); White Blood Count 12.9 x10^3/uL (4.0-10.5)
[2022-01-16 05:38] LABS: ALBUMIN 3.8 g/dL (3.5-5.0); ANION GAP 21.2 MEQ/L (5-15); BILIRUBIN,TOTAL 0.9 mg/dL (0.2-1.3); Calcium 9.1 mg/dL (8.4-10.2); Creatinine 1 1.53 mg/dL (0.52-1.04); EST GLOMERULAR FILTRATION RATE 36.4 ML/MIN; Potassium 4.5 mmol/L (3.5-5.1); Total Protein 7.5 g/dL (6.3-8.2)
[2022-01-16 06:01] LABS: INFLUENZA A NEGATIVE (NEGATIVE); INFLUENZA B NEGATIVE (NEGATIVE); RESPIRATORY SYNCTIAL VIRUS NEGATIVE (Negative); SARS-CoV-2 Xpert Express NEGATIVE (NEGATIVE)
[2022-01-16] MEDS ORDERED: Zofran 4 MG/2 ML VIAL IV ONE (06:01)
[2022-01-16] MEDS ORDERED: MORPHINE SULFATE 2 MG INJ IV ONE (06:01)
[2022-01-16] MEDS ORDERED: ENOXAPARIN SODIUM SQ STA (06:30)
[2022-01-16] MEDS ORDERED: Piperacillin/Tazobactam 2.25 GM 2.25 GM in Sodium Chloride 100ML MINI-BAG PLUS 100 ML IV ONE (07:04)
[2022-01-16] MEDS ORDERED: ENOXAPARIN SODIUM SQ ONE ×2 (07:05→07:06)
[2022-01-16 07:46] LABS: Slide Review 1 YES
[2022-01-16] MEDS ORDERED: TYLENOL EXTRA STRENGTH 500 MG PO STA (08:45)
--- NOTE | 2022-01-16 08:50 | XRAY ---
Indication: Short of breath. Fever. Comparison: June 12, 2020 Portable chest remains underinflated. No focal infiltrate, consolidation, or large effusion. Heart not enlarged. Bony thorax intact again with mild left shoulder degenerative changes. Impression: Nonacute underinflated chest.
[2022-01-16] MEDS ORDERED: TYLENOL EXTRA STRENGTH 500 MG ONE (09:04)
[2022-01-16] MEDS ORDERED: BABY ASPIRIN 81 MG CHEW PO ONE (09:10)
--- NOTE | 2022-01-16 10:11 | XRAY ---
Indication: Obstruction. Ischemia. Status post "colon mass removal" 2 weeks ago. Multiple contiguous axial images obtained through the abdomen and pelvis without contrast. Comparison: None Study is slightly degraded by respiration artifact, especially through the lung bases. Lung bases demonstrate mild dependent atelectasis. No focal infiltrate or effusion. Heart enlarged. Noncontrasted stomach and bowel loops appear nonobstructed with normal appendix. There has been sigmoid resection with mild perirectal stranding/thickening presumed related to recent surgery. No free fluid/air. Left kidney demonstrates small nonobstructing staghorn-like calculus. Right kidney demonstrates 1.4 cm nonobstructing calculus. 23 cm fatty hepatomegaly and 14.6 cm splenomegaly. Remaining liver, gallbladder, pancreas, spleen, adrenal glands, kidneys, ureters, bladder, uterus, and aorta are unremarkable for noncontrast exam. Osseous structures intact with minimal/mild degenerative changes throughout the thoracolumbar spine. Abdominal wall demonstrates multifocal subcutaneous densities and and a few subcutaneous air bubbles all presumed iatrogenic from subcutaneous injections. No ventral or inguinal hernias. Impression: 1. Respiration artifact. 2. Sigmoid resection with presumed postoperative changes. No free fluid/air. 3. Nonobstructing bilateral renal calculi. 4. Chronic findings including fatty hepatomegaly, splenomegaly, and degenerative spondylosis. 5. Multifocal abdominal wall small subcutaneous densities with subcutaneous air bubbles presumed iatrogenic from subcutaneous injections.
[2022-01-16 10:20] VITALS: BP 96/52; PULSE 95; O2SAT 98
--- NOTE | 2022-01-16 11:31 | XRAY ---
Indication: Short of breath. Increased d-dimer. Status post colon surgery 2 weeks ago. Poor renal function. Comparison: None Patient received 5.4 mCi technetium 99 MAA for the perfusion portion of exam. Patient inhaled 36 mCi aerosolized technetium 99 DTPA for the ventilation portion of exam. Multiple planar images obtained. Perfusion images demonstrate homogeneous radiopharmaceutical activity bilaterally. No segmental/subsegmental perfusion defects. Ventilation images also demonstrate homogeneous radiopharmaceutical activity bilaterally. Small amount of ingested radiopharmaceutical activity in the GI system. Impression: Nuclear medicine ventilation perfusion scan is normal.
--- NOTE | 2022-01-16 12:51 | ECHO ---
Transthoracic echocardiographic examination and color Doppler was done on 01/16/2022. INDICATION: Elevated troponin I. IMPRESSION: 1) NO REGIONAL WALL MOTION ABNORMALITY. ESTIMATED GLOBAL LEFT VENTRICULAR EJECTION FRACTION OF AROUND 55 TO 60%. 2) TRACE MITRAL REGURGITATION. 3) TRACE TRICUSPID REGURGITATION. RIGHT VENTRICULAR SYSTOLIC PRESSURE OF 35 MM OF MERCURY. The left ventricle is visualized and demonstrated adequate motion of all the segments. Estimated global left ventricular ejection fraction between 55 and 60%. The left ventricular thickness is normal. The mitral valve is seen and this opens adequately. There is trace mitral regurgitation. Left atrium is normal. The aortic valve opens adequately. There is no significant gradient across the left ventricular outflow tract. The right side chambers are normal. There is trace tricuspid regurgitation. The right ventricular systolic pressure of 35 mm of Mercury.
== END 2022-01-16 11:23 | disposition short-term general hospital (02) ==
LOC: ED 04:22
DX: A41.9 Sepsis, unspecified organism (principal); I21.4 Non-ST elevation (NSTEMI) myocardial infarction; E11.22 Type 2 diabetes mellitus with diabetic chronic kidney disease; N18.9 Chronic kidney disease, unspecified; R50.9 Fever, unspecified; R06.02 Shortness of breath; R79.1 Abnormal coagulation profile; Z79.4 Long term (current) use of insulin; Z79.84 Long term (current) use of oral hypoglycemic drugs; Z79.899 Other long term (current) drug therapy; Z86.16 Personal history of COVID-19
CPT/HCPCS: 0241U; 36000; 36415; 71045; 74176; 78582; 80053; 83605; 83880; 84484; 85025; 85379; 87040; 87077; 93005; 93306; 96360; 96372; 99285; A9540; A9567; J1650; J2543; A9270-GY

== ENCOUNTER 2023-12-14 18:29 | Emergency (ER) | payer MEDICARE ==
[2023-12-14 18:48] VITALS: TEMP 97.2
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
[2023-12-14 19:08] LABS: Absolute Neutrophil Ct (ANC) 7.95 x10^3/uL (1.56-6.13); BASOPHIL % 0.5 % (0.1-1.2); Basophil (Absolute #) 0.05 x10^3/uL (0.01-0.08); Eosinophil % 2.6 % (0.7-5.8); Eosinophil (Absolute #) 0.28 x10^3/uL (0.04-0.36); Hematocrit 17.3 % (34.1-44.9); IMMATURE GRAN # 0.09 x10^3u/L (0.001-0.031); IMMATURE GRAN % 0.8 % (0.001-0.429); Lymphocyte (Absolute #) 1.17 x10^3/uL (1.18-3.74); Lymphocytes % 10.8 % (19.3-51.7); Mean Cell Volume 87.8 fL (79.4-94.8); Mean Corpuscular Hemoglobin 27.4 pg (25.6-32.2); Mean Corpuscular Hgb Concent. 31.2 g/dL (32.2-35.5); Mean Platelet Volume 9.8 fL (9.4-12.3); Monocyte (Absolute #) 1.31 x10^3/uL (0.24-0.86); Monocytes % 12.1 % (4.7-12.5); Neutrophil % 73.2 % (34.0-71.1); Platelet Count 475 x10^3/uL (182-369); Red Blood Count 1.97 x10^6/uL (3.93-5.22); Red Cell Distribution Width 15.9 % (11.7-14.4); White Blood Count 10.9 x10^3/uL (3.98-10.04)
[2023-12-14] MEDS ORDERED: Sodium Chloride 0.9% 1000 ML 1,000 ML ONE (19:11)
[2023-12-14] MEDS: Sodium Chloride 0.9% 1000 ML 1,000 ML IV SCH (19:12)
[2023-12-14 19:20] LABS: Hemoglobin 5.4 g/dL (11.2-15.7)
[2023-12-14 19:23] LABS: AMYLASE 57 U/L (30-110); LIPASE 101 U/L (23-300)
[2023-12-14 19:24] LABS: ALBUMIN 3.3 g/dL (3.5-5.0); ANION GAP 17.7 MEQ/L (5-15); BILIRUBIN,TOTAL 0.4 mg/dL (0.2-1.3); Calcium 7.8 mg/dL (8.4-10.2); Creatinine 1 2.57 mg/dL (0.52-1.04); EST GLOMERULAR FILTRATION RATE 20.1 ML/MIN; PROTIME 10.9 SECONDS (9.4-12.5); Potassium 3.6 mmol/L (3.5-5.1); Total Protein 7.1 g/dL (6.3-8.2)
[2023-12-14 19:57] LABS: ABO TYPING A; RH TYPING POSITIVE
[2023-12-14 19:58] LABS: Antibody Screen NEGATIVE (NEGATIVE)
[2023-12-14 20:00] LABS: CROSS MATCH (PRBC) COMPATIBLE (COMPATIBLE)
[2023-12-14 20:02] LABS: CROSS MATCH (PRBC) COMPATIBLE (COMPATIBLE)
[2023-12-14 20:51] LABS: CROSS MATCH (PRBC) COMPATIBLE (COMPATIBLE)
[2023-12-14 20:52] LABS: CROSS MATCH (PRBC) COMPATIBLE (COMPATIBLE)
[2023-12-15 03:35] VITALS: O2SAT 97
[2023-12-15] MEDS ORDERED: Lasix 20 MG/2 ML ONE (05:48)
[2023-12-15] MEDS ORDERED: CLINDAMYCIN-D5W 600 MG/50 ML*** 600 MG/50 ML BAG IV ONE (05:48)
[2023-12-15] MEDS: Lasix 20 MG/2 ML IV ONE (05:48)
[2023-12-15] MEDS: CLINDAMYCIN-D5W 600 MG/50 ML*** 600 MG/50 ML BAG IV STA (05:49)
[2023-12-15 06:22] LABS: Hematocrit 21.5 % (34.1-44.9)
[2023-12-15] MEDS ORDERED: MERREM IV ONE (06:47)
[2023-12-15] MEDS ORDERED: Sodium Chloride 100ML MINI-BAG PLUS 100 ML IV ONE (06:47)
[2023-12-15] MEDS: MERREM 500 MG in Sodium Chloride 100ML MINI-BAG PLUS 100 ML IV ONE (06:49)
[2023-12-15 08:02] LABS: ALBUMIN 3.1 g/dL (3.5-5.0); ANION GAP 13.7 MEQ/L (5-15); BILIRUBIN,TOTAL 0.8 mg/dL (0.2-1.3); Calcium 7.9 mg/dL (8.4-10.2); Creatinine 1 2.51 mg/dL (0.52-1.04); EST GLOMERULAR FILTRATION RATE 20.7 ML/MIN; Potassium 3.7 mmol/L (3.5-5.1); Total Protein 6.8 g/dL (6.3-8.2)
--- NOTE | 2023-12-15 08:53 | XRAY ---
Indication: GI bleed. Multiple contiguous axial images obtained through the abdomen and pelvis without contrast as ordered. Comparison: November 19, 2023 Lack of IV contrast precludes evaluation for GI bleed. Lung bases demonstrates minimal dependent atelectasis. Heart remains enlarged. Noncontrasted stomach and bowel loops appear nonobstructed. Stable left mid abdomen colostomy with rectal postsurgical changes. No free fluid/air. Again bilateral double-J ureteral stent catheters now both in good position. Left kidney again appears moderately hydronephrotic concerning for stent obstruction. No evidence for obstructive uropathy on the right. Urinary bladder again demonstrates tiny intraluminal air bubble either iatrogenic versus gas-forming infection. Remaining liver, gallbladder, pancreas, spleen, adrenal glands, uterus, and aorta are unremarkable for noncontrast exam. Osseous structures intact again with mild/moderate degenerative changes throughout the thoracolumbar spine and minimal levoscoliosis. Impression: 1. Evaluation for GI bleed is limited on this noncontrast exam. 2. Again bilateral double-J ureteral stent catheters in situ. Left kidney remains hydronephrotic again concerning for stent obstruction. 3. Again urinary bladder intraluminal air bubble either iatrogenic versus gas-forming infection. 4. Stable chronic findings including cardiomegaly, left mid abdomen colostomy without complications, and chronic bony findings.
[2023-12-15 09:20] VITALS: RESP 23
[2023-12-15] MEDS ORDERED: Sodium Chloride 0.9% 1000 ML 1,000 ML ONE (10:20)
[2023-12-15 10:55] VITALS: BP 120/61; PULSE 86
== END 2023-12-15 10:57 | disposition short-term general hospital (02) ==
LOC: ED 18:29
DX: N17.9 Acute kidney failure, unspecified (principal); E11.22 Type 2 diabetes mellitus with diabetic chronic kidney disease; N18.9 Chronic kidney disease, unspecified; D64.9 Anemia, unspecified; N13.30 Unspecified hydronephrosis; R53.1 Weakness; Z79.4 Long term (current) use of insulin; Z79.899 Other long term (current) drug therapy
CPT/HCPCS: 36000; 36415; 36430; 74176; 80053; 82150; 82947; 83605; 83690; 85014; 85018; 85025; 85610; 86850; 86900; 86901; 86922; 87040; 96360; 96361; 96365; 96367; 96374; 99285; 99291; P9016; 96375; J1940

== ENCOUNTER 2024-06-05 14:40 | Emergency (ER) | payer MEDICARE ==
[2024-06-05 14:58] VITALS: TEMP 98.3
[2024-06-05] MEDS ORDERED: Sodium Chloride 0.9% 1000 ML 1,000 ML ONE (15:07)
[2024-06-05] MEDS: Sodium Chloride 0.9% 1000 ML 1,000 ML IV STA (15:09)
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
[2024-06-05 15:22] LABS: Absolute Neutrophil Ct (ANC) 6.87 x10^3/uL (1.56-6.13); BASOPHIL % 0.5 % (0.1-1.2); Basophil (Absolute #) 0.05 x10^3/uL (0.01-0.08); Eosinophil % 2.3 % (0.7-5.8); Eosinophil (Absolute #) 0.21 x10^3/uL (0.04-0.36); Hematocrit 25.2 % (34.1-44.9); Hemoglobin 7.9 g/dL (11.2-15.7); IMMATURE GRAN # 0.12 x10^3u/L (0.001-0.031); IMMATURE GRAN % 1.3 % (0.001-0.429); Lymphocyte (Absolute #) 0.74 x10^3/uL (1.18-3.74); Mean Corpuscular Hemoglobin 27.9 pg (25.6-32.2); Mean Corpuscular Hgb Concent. 31.3 g/dL (32.2-35.5); Mean Platelet Volume 9.6 fL (9.4-12.3); Monocyte (Absolute #) 1.26 x10^3/uL (0.24-0.86); Monocytes % 13.6 % (4.7-12.5); Neutrophil % 74.3 % (34.0-71.1); Platelet Count 482 x10^3/uL (182-369); Red Blood Count 2.83 x10^6/uL (3.93-5.22); Red Cell Distribution Width 16.2 % (11.7-14.4); White Blood Count 9.3 x10^3/uL (3.98-10.04)
[2024-06-05 15:32] LABS: Appearance Turbid (Clear); Bacteria Many /HPF (None Seen); Bilirubin Negative (Negative); Blood Moderate (Negative); Epithelial Cells None Seen /HPF (None Seen); Glucose, Urine Negative (Negative); Ketones Negative (Negative); Leukocyte Esterase Large (Negative); Nitrite Negative (Negative); Protein,Urine Dip 100 (Negative); WBC >100 /HPF (0-5)
[2024-06-05 15:36] LABS: ANION GAP 14.1 MEQ/L (5-15); BILIRUBIN,TOTAL 0.5 mg/dL (0.2-1.3); Calcium 8.2 mg/dL (8.4-10.2); Creatinine 1 1.09 mg/dL (0.52-1.04); Potassium 2.8 mmol/L (3.5-5.1)
[2024-06-05] MEDS ORDERED: Sodium Chloride 100ML MINI-BAG PLUS 100 ML IV ONE (16:19)
[2024-06-05] MEDS ORDERED: Merrem IV ONE (16:19)
[2024-06-05] MEDS: Merrem 1 GM in Sodium Chloride 100ML MINI-BAG PLUS 100 ML IV ONE (16:20)
[2024-06-05] MEDS: POTASSIUM CHLORIDE 20 mEq IN WATER 100ML 20 MEQ/100 ML BAG IV ONE ×2 (16:59→21:03)
[2024-06-05] MEDS ORDERED: POTASSIUM CHLORIDE 20 mEq IN WATER 100ML 100 ML IV ONE ×2 (16:59→20:59)
[2024-06-05] MEDS ORDERED: Sodium Chloride 0.9% 250 ML 250 ML IV ONE ×2 (16:59→22:31)
[2024-06-05] MEDS: Sodium Chloride 0.9% 250 ML 250 ML IV SCH ×2 (17:00→22:33)
--- NOTE | 2024-06-05 18:06 | XRAY ---
CLINICAL HISTORY: blood in rectum, colostomy, illiost COMPARISON: CT dated 12/14/2023. TECHNIQUE: Non-contrast CT of the abdomen and pelvis was performed, with the following protocol: axial images, and reconstructed coronal and sagittal images. No intravenous contrast was administered. One of the following dose reduction techniques was utilized for this exam: Automated exposure control, adjustment of the mA and/or kV according to patient size, and use of iterative reconstruction. FINDINGS: Evidence of inferior ventral midline subcutaneous collection, not related to the current right-sided colostomy tract, with gas locules, denoting abscess formation. A small amount of high-density fluid accumulating in the left paracolic gutter may be infected. Focally dilated jejunal bowel segment may be due to adhesions. Multiple enlarged mesenteric, retroperitoneal lymph nodes. Prior left colostomy tract, no herniated contents. The liver, spleen, and pancreas are unremarkable. The gallbladder is normally distended with subtle intraluminal hyperdensities, which may represent sludge. Kidneys and Adrenal Glands: Both kidneys are normal in size, shape, and position. Cortical thickness is within normal limits. Previously seen bilateral DJ catheters are removed. There is fullness of the bilateral pelvicalyceal systems. Adrenal glands are unremarkable. Urinary Bladder: Mild diffuse wall thickening. Prior recto-anal surgery, with left pelvic inflammatory changes, and suspected small collection. The basal chest shows bilateral basal subpleural nodular opacities. IMPRESSION: Status post recent colostomy, with prior multiple bowel operations, and chemo/radiotherapy, showin. Evidence of inferior ventral midline subcutaneous collection, not related to the current right-sided colostomy tract, with gas locules, denoting abscess formation. (new) 2. A small amount of high-density fluid accumulating in the left paracolic gutter may be infected. 3. Focally dilated jejunal bowel segment may be due to adhesions. 4. Multiple enlarged mesenteric, retroperitoneal lymph nodes. 5. Prior left colostomy tract, no herniated contents. 6. Prior recto-anal surgery, with left pelvic inflammatory changes, and suspected small presacral collection. 7. Gallbladder sludge 8. Bilateral renal pelvicalyceal fullness. Interval removal of the DJ catheters. Electronically Signed by: Yury Overton MD. (06/05/2024 18:01:52 EST)
[2024-06-05] MEDS ORDERED: Zofran 4 MG/2 ML VIAL ONE ×2 (20:59→21:04)
[2024-06-05] MEDS: POTASSIUM CHLORIDE 20 mEq IN WATER 100ML 20 MEQ/100 ML BAG IV SCH (21:03)
[2024-06-05] MEDS: Zofran 4 MG/2 ML VIAL IV ONE (21:04)
[2024-06-05 23:45] VITALS: PULSE 81; RESP 24
[2024-06-06 00:02] VITALS: BP 156/69; O2SAT 96
== END 2024-06-06 00:36 | disposition short-term general hospital (02) ==
LOC: ED 14:40
DX: L03.311 Cellulitis of abdominal wall (principal); Z48.815 Encounter for surgical aftercare following surgery on the digestive system; Z85.038 Personal history of other malignant neoplasm of large intestine; Z93.3 Colostomy status; D64.9 Anemia, unspecified; T81.31XA Disruption of external operation (surgical) wound, not elsewhere classified, initial encounter
CPT/HCPCS: 36415; 74176; 80053; 81001; 82150; 83690; 85025; 87070; 87077; 87086; 87186; 96360; 96361; 96365; 96366; 96374; 96375; 99285; J2405; J3480